=== PATIENT | female | born 1940 | race Caucasian/White ===

== ENCOUNTER 2017-08-01 11:54 | Outpatient (CLI) | payer MEDICARE, OTHER ==
--- NOTE | 2017-08-01 16:24 | XRAY Report ---
DATE OF SERVICE: 08/01/2017 TWO VIEW CHEST: 08/01/2017 CLINICAL INDICATION: Wheezing, cough. COMPARISON: 06/08/2010. FINDINGS: Frontal and lateral views of the chest demonstrate a normal cardiac silhouette. The lungs are clear. No effusion or pneumothorax is present. IMPRESSION: NORMAL CHEST, UNCHANGED. TD: 08/01/2017 17:23
== END 2017-08-01 11:55 | disposition home or self-care (01) ==
LOC: DI 11:54
PROVIDERS: ATTEND Internal Medicine
DX: R06.2 Wheezing (principal); R05 Cough
CPT/HCPCS: 71046

== ENCOUNTER 2017-09-26 14:02 | Outpatient (CLI) | payer MEDICARE, OTHER | END 2017-09-26 14:03 | disposition home or self-care (01) | LOC: SC 14:02 | PROVIDERS: ATTEND Internal Medicine Pulmonary Disease | DX: G47.33 Obstructive sleep apnea (adult) (pediatric) (principal) | CPT/HCPCS: 99203; G0463; 99212 ==

== ENCOUNTER 2019-06-05 13:13 | Outpatient (CLI) | payer MEDICARE, OTHER ==
--- NOTE | 2019-06-05 13:59 | SLEEP CARE CONSULTATION ---
Information from patient questionnaire entered by Candis Trevino. I have reviewed and concur with the information entered by Candis Trevino. This document represents the service I personally performed and the decisions made by me, Rhina Tran MD, [facility]. History of Present Illness Previous diagnosis: Mild, Obstructive Sleep Apnea-Hypopnea Syndrome AHI: 14.8 Reason for follow up: annual Prior sleep studies: Yes HPI additional information: HPI: Ms. Chaudhry returned today for annual follow up of nasal CPAP therapy. She was diagnosed to have mild obstructive sleep apnea-hypopnea syndrome here in 2008. The patient used CPAP regularly until about 2 years ago when it broke. She sleeps alone and does not know if she still snores or not. She complains of sleep onset insomnia but does not wake up frequently at night. Her sleep schedule is from 2 am to 10 am. She would like to be retested to see if she still has the sleep-disordered breathing. Subjective Initial [place] Sleepiness Scale score: 2 Current [place] Sleepiness Scale score: 1 Allergies and Home Medications Drug allergies reviewed: Yes Home medication list reviewed: Yes Review of Systems Review of systems same as previous: Yes Physical Exam Weight: 205 lb Weight change since last visit: +5 Impression and Plan IMPRESSION: 1. Obstructive Sleep Apnea-Hypopnea Syndrome, mild, presently untreated because her CPAP machine broke 2 years ago. She gained 5 lbs since the diagnosis 10 years ago. I will repeat the in-laboratory polysomnography. If she does have significant sleep disordered breathing, I will order her a new machine. PLAN: 1. Repeat in-laboratory polysomnography. 3. Return in one month for follow up to go over the sleep study results. I spent 100% of this 20 minute visit face to face with the patient with greater than 50% of this was spent time counseling the patient and coordination of care.
== END 2019-06-05 13:14 | disposition home or self-care (01) ==
LOC: SC 13:13
PROVIDERS: ATTEND Internal Medicine Pulmonary Disease
DX: G47.33 Obstructive sleep apnea (adult) (pediatric) (principal)
CPT/HCPCS: 99213; G0463; 99212

== ENCOUNTER 2019-09-26 19:04 | Emergency (ER) | payer MEDICARE, OTHER ==
--- NOTE | 2019-09-26 20:27 | XRAY Report ---
Reason: pain Procedure Date: 09/26/2019 Accession Number: [id number] / [id number] Procedure: XR - Hip w/Pelvis 2-3V LT CPT Code: Final Report FULL RESULT: EXAM: LEFT HIP RADIOGRAPHY EXAM DATE: 09/26/2019 08:21 PM. CLINICAL HISTORY: Increasing left hip pain for 4 days COMPARISON: None. TECHNIQUE: 2 views. FINDINGS: Bones: Normal. No fractures or bone lesion. Joints: Mild bilateral hip degenerative joint disease. Soft Tissues: Surgical clips in the pelvis. Phleboliths in the pelvis. IMPRESSION: 1. Mild bilateral hip degenerative joint disease. 2. No evidence of left hip fracture. RADIA
[2019-09-26] MEDS ORDERED: fentaNYL 100 MCG/2 ML VIAL IVP STA ×3 (21:17→23:16)
[2019-09-26] MEDS ORDERED: LIDOCAINE 1% 2 ML VIAL TD STA (22:16)
[2019-09-26] MEDS ORDERED: TRIAMCINOLONE 40 MG/ML VIAL IM STA (22:16)
--- NOTE | 2019-09-26 22:23 | ED Physician Documentation ---
History of Present Illness - Stated complaint Stated Complaint: L HIP PX - Chief complaint Chief Complaint: Ext Problem - History obtained from History obtained from: Patient - History of Present Illness Timing: Prior to arrival (Pt presents with left hip pain that started 3 days ago but worsened yesterday after she did her weekly shopping trip and was walking around more than her normal. She did not fall or have an acute injury. She has not had any swelling or redness in the area. She denies shortness of breath or lower leg pain/calf pain/fullness. She has no dysuria, constipation, or abd pain. She states a prior hx/o lower back pain, previously requiring multiple injections and eventually improved with a lumbar laminectomy.) Review of Systems Constitutional: denies: Fever, Chills Cardiac: denies: Chest pain / pressure, Palpitations, Pedal edema, Calf pain Respiratory: denies: Dyspnea, Cough GI: denies: Abdominal Pain, Nausea, Vomiting, Constipation, Diarrhea : denies: Dysuria, Frequency, Hesitancy, Unable to Void, Incontinent Skin: denies: Rash, Lesions, Abrasion (s) Musculoskeletal: reports: Extremity pain, Joint pain, Pain with weight bearing. 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 - Present Medications Home Medications: Ambulatory Orders Medication Instructions Recorded Confirmed Pravastatin [Pravachol] 40 mg PO DAILY 12/13/15 09/26/19 diltiaZEM CD [Cardizem Cd] 240 mg PO DAILY 12/13/15 09/26/19 metFORMIN [Glucophage] 6,500 mg PO DAILY 12/13/15 09/26/19 LORazepam [Lorazepam] 2 mg PO QPM 09/26/19 09/26/19 Lidocaine Patch 5% [Lidoderm Patch] 1 patch TOP DAILY PRN #10 patch 09/26/19 predniSONE [Prednisone] 40 mg PO DAILY #10 tablet 09/26/19 - Allergies Allergies/Adverse Reactions: Allergies Allergy/AdvReac Type Severity Reaction Status Date / Time acetaminophen [From Tylenol] Allergy Itching Verified 12/13/15 15:35 erythromycin base Allergy Anaphylaxis Verified 12/13/15 15:35 oxycodone Allergy Itching Verified 12/13/15 15:35 ibuprofen [From Motrin] AdvReac Mild Itching Verified 12/14/15 06:34 NSAIDS (Non-Steroidal AdvReac Itching Verified 09/26/19 19:16 Anti-Inflamma - Social History Does the pt smoke?: No Smoking Status: Never smoker Does the pt drink ETOH?: No Does the pt have substance abuse?: No - Immunizations Immunizations are current?: Yes - POLST Patient has POLST: No PD ED PE NORMAL - Vitals Vital signs reviewed: Yes - General General: Alert and oriented X 3, No acute distress, Well developed/nourished - Neck Neck: Supple, no meningeal sign, No adenopathy - Cardiac Cardiac: RRR, No murmur - Respiratory Respiratory: No respiratory distress, Clear bilaterally - Abdomen Abdomen: Normal bowel sounds, Soft, Non tender, Non distended - Back Back: No CVA TTP, No spinal TTP - Derm Derm: Normal color, Warm and dry, No rash - Extremities Extremities: No deformity, No tenderness to palpate, No edema, No calf tenderness / cord, Other (no specific pain with palpation of the left hip joint. she has mild tenderness of the left lateral thigh. there is no redness, swelling, or palpable fluid collection. The patient has normal rotation of the hip, normal flex/ext, but has pain when she tries to stand and walk. ) Results - Vitals Vitals: Vital Signs - 24 hr 09/26/19 09/27/19 19:13 00:02 Temperature 37 C 36.6 C Heart Rate 109 H 92 Respiratory 17 16 Rate Blood Pressure 150/77 H 151/94 H O2 Saturation 95 95 Oxygen O2 Source Room air PD MEDICAL DECISION MAKING - ED course Complexity details: reviewed results, re-evaluated patient, considered differential, d/w patient, d/w family ED course: Pt presented with non-traumatic left hip pain after a period of increased activity. Pain improved throughout the ER stay s/p a total of 100mcg of fentanyl and she is now ambulatory. She has no exam findings or hx concerning for infectious etiology and there is no swelling or bursitis. She does have degenerative changes on xray and pain may be 2/2 to exacerbation of arthritis. I discussed options for pain control as pt has numerous allergies. She would like to try a course of steroids as this worked for her back pain in the past, and we will try a lidocaine patch. I cautioned on side effects of steroids and pt und erstands. I recommended pt follow up with her pcp/ortho in the next week if pain persists, may benefit from joint injection. Pt advised to return if she develops worsening pain, fever/chills, left swelling or redness, or otherwise worsening symptoms. Departure - Departure Disposition: 01 Home, Self Care Clinical Impression: Pain in extremity Qualifiers: Extremity pain location: thigh Laterality: left Qualified Code(s): M79.652 - Pain in left thigh Condition: Good Instructions: ED Acute Pain [facility]O Prescriptions: Lidocaine Patch 5% [Lidoderm Patch] 1 patch TOP DAILY PRN #10 patch PRN Reason: pain predniSONE [Prednisone] 40 mg PO DAILY #10 tablet Comments: You presented with left thigh pain. Your xray was normal and there were no signs of swelling, redness, fluid collection, calf pain. You had some relief with fentanyl and after discussion we decided to try a burst of steroids as you have used this in the past with your back pain. If you developed redness, swelling, calf pain, fever, chills, or otherwise worsening symptoms, I recommend you return to the ER or follow up with your primary doctor. Due to your allergies, I am not able to give you any oral medications for home, but we will try a lidocaine patch. Discharge Date/Time: 09/27/19 00:13
[2019-09-26] MEDS ORDERED: LIDOCAINE PATCH 5% TOP STA (22:38)
[2019-09-26] MEDS ORDERED: predniSONE 20 MG TABLET PO STA (23:16)
[2019-09-27 00:04] VITALS: BP 151/94
== END 2019-09-27 00:13 | disposition home or self-care (01) ==
LOC: ED 19:04
DX: M79.652 Pain in left thigh (principal); I10 Essential (primary) hypertension; E11.9 Type 2 diabetes mellitus without complications; Z79.84 Long term (current) use of oral hypoglycemic drugs
CPT/HCPCS: 73502; 96374; 96376; 99283; 99284; A9270; J7512

== ENCOUNTER 2021-03-31 07:00 | Outpatient (CLI) | payer MEDICARE, OTHER ==
--- NOTE | 2021-03-31 17:15 | XRAY Report ---
PROCEDURE: Shoulder 3 View LT INDICATIONS: L SHOULDER PX TECHNIQUE: 3 views of the shoulder were acquired. COMPARISON: None. FINDINGS: Bones: No fractures or dislocations. Mild to moderate acromioclavicular joint and glenohumeral join t osteoarthritic changes are seen. No suspicious bony lesions. Visualized ribs appear intact. Soft tissues: No suspicious soft tissue calcifications. IMPRESSION: Mild to moderate left shoulder joint osteoarthritis. No fracture or dislocation. No susp icious bony lesion. Reviewed by: Edy Guerrero MD on 03/31/2021 5:13 PM PDT Approved by: Edy Guerrero MD on 03/31/2021 5:13 PM PDT Station ID: [id number]
== END 2021-03-31 23:59 | disposition home or self-care (01) ==
LOC: DI.N 07:00
PROVIDERS: ATTEND Family Medicine
DX: M19.012 Primary osteoarthritis, left shoulder (principal); R42 Dizziness and giddiness; R29.6 Repeated falls; N39.0 Urinary tract infection, site not specified
CPT/HCPCS: 36415; 80053; 84443; 85025; 87086; 87181

== ENCOUNTER 2021-03-31 08:00 | Outpatient (CLI) | payer MEDICARE, OTHER ==
[2021-03-31 20:40] LABS: BASOPHILS # (AUTO) 0.1 10^3/uL (0.0-0.1); BASOPHILS % (AUTO) 0.3 %; EOSINOPHILS # (AUTO) 0.1 10^3/uL (0.0-0.7); EOSINOPHILS % (AUTO) 0.3 %; HCT - HEMATOCRIT 41.7 % (37.0-47.0); HGB - HEMOGLOBIN 14.2 g/dL (12.0-16.0); LYMPHOCYTES # (AUTO) 1.3 10^3/uL (1.5-3.5); LYMPHOCYTES % (AUTO) 8.3 %; MEAN CORPUSCULAR HEMOGLOBIN 32.6 pg (27.0-31.0); MEAN CORPUSCULAR HGB CONC 34.1 g/dL (32.0-36.0); MEAN CORPUSCULAR VOLUME 95.9 fL (81.0-99.0); MEAN PLATELET VOLUME 11.4 fL (7.9-10.8); MONOCYTES # (AUTO) 1.7 10^3/uL (0.0-1.0); NEUTROPHILS # (AUTO) 12.3 10^3/uL (1.5-6.6); NEUTROPHILS % (AUTO) 79.6 %; PLT - PLATELET COUNT 349 10^3/uL (130-450); RED BLOOD COUNT 4.35 10^6/uL (4.20-5.40); RED CELL DISTRIBUTION WIDTH 11.9 % (12.0-15.0); WHITE BLOOD COUNT 15.5 x10^3/uL (4.8-10.8)
[2021-03-31 21:05] LABS: ALBUMIN 3.4 g/dL (3.2-5.5); ALBUMIN/GLOBULIN RATIO 0.8 (1.0-2.2); BILIRUBIN,TOTAL 2.6 mg/dL (0.2-1.0); CALCIUM 10.3 mg/dL (8.5-10.3); CREATININE 0.6 mg/dL (0.4-1.0); POTASSIUM 3.4 mmol/L (3.5-5.0); TOTAL PROTEIN 7.9 g/dL (6.7-8.2)
[2021-03-31 21:17] LABS: THYROID STIMULATING HORMONE 1.68 uIU/mL (0.34-5.60)
[2021-03-31 21:57] LABS: PLATELET ESTIMATE, MANUAL NORMAL (130-450,000) (NORMAL); PLATELET MORPHOLOGY NORMAL APPEARANCE (NORMAL); RBC MORPHOLOGY (MULTIPLE) NORMAL APPEARANCE (NORMAL)
== END 2021-03-31 23:59 | disposition home or self-care (01) ==
LOC: LAB.N 08:00
PROVIDERS: ATTEND Family Medicine
DX: R42 Dizziness and giddiness (principal); R29.6 Repeated falls; N39.0 Urinary tract infection, site not specified
CPT/HCPCS: 36415; 80053; 84443; 85025; 87086; 87181

== ENCOUNTER 2021-04-03 12:51 | Emergency (ER) | payer MEDICARE, OTHER ==
--- NOTE | 2021-04-03 13:32 | XRAY Report ---
PROCEDURE: Chest 1 View X-Ray INDICATIONS: chest pain TECHNIQUE: One view of the chest was acquired. COMPARISON: 08/01/2017. FINDINGS: Surgical changes and devices: None. Lungs and pleura: No pleural effusions or pneumothorax. Lungs are clear. Mediastinum: Mediastinal contours appear normal. Heart size is normal. Bones and chest wall: No suspicious bony lesions. Overlying soft tissues appear unremarkable. IMPRESSION: 1. No acute cardiopulmonary disease. Reviewed by: Severino Bauer MD on 04/03/2021 1:30 PM PDT Approved by: Severino Bauer MD on 04/03/2021 1:30 PM PDT Station ID: [id number]
[2021-04-03 13:43] LABS: BASOPHILS % (AUTO) 0.3 %; EOSINOPHILS % (AUTO) 0.3 %; HCT - HEMATOCRIT 39.5 % (37.0-47.0); HGB - HEMOGLOBIN 13.7 g/dL (12.0-16.0); LYMPHOCYTES % (AUTO) 8.2 %; MEAN CORPUSCULAR HEMOGLOBIN 32.5 pg (27.0-31.0); MEAN CORPUSCULAR HGB CONC 34.7 g/dL (32.0-36.0); MEAN CORPUSCULAR VOLUME 93.6 fL (81.0-99.0); MEAN PLATELET VOLUME 10.7 fL (7.9-10.8); MONOCYTES # (AUTO) 1.1 10^3/uL (0.0-1.0); MONOCYTES % (AUTO) 9.2 %; NEUTROPHILS # (AUTO) 9.5 10^3/uL (1.5-6.6); PLT - PLATELET COUNT 344 10^3/uL (130-450); RED BLOOD COUNT 4.22 10^6/uL (4.20-5.40); RED CELL DISTRIBUTION WIDTH 11.8 % (12.0-15.0); WHITE BLOOD COUNT 11.7 x10^3/uL (4.8-10.8)
[2021-04-03 14:05] LABS: ALBUMIN 3.1 g/dL (3.2-5.5); ALBUMIN/GLOBULIN RATIO 0.8 (1.0-2.2); BILIRUBIN,TOTAL 2.2 mg/dL (0.2-1.0); CALCIUM 9.6 mg/dL (8.5-10.3); CREATININE 0.6 mg/dL (0.4-1.0); POTASSIUM 3.3 mmol/L (3.5-5.0); TOTAL PROTEIN 7.1 g/dL (6.7-8.2)
[2021-04-03] MEDS ORDERED: SODIUM CHLORIDE 0.9% 1,000 ML IV STA (14:47)
--- NOTE | 2021-04-03 14:49 | ED Physician Documentation ---
History of Present Illness - Stated complaint Stated Complaint: FEMALE - Chief complaint Chief Complaint: General - History obtained from History obtained from: Patient - History of Present Illness Timing: How many weeks ago (2) - Additonal information Additional information: 80-year-old diabetic female has developed falls. She has had 4 falls in the past 2 weeks. She does not recall all of the details to the falls. She has not injured herself except when she fell today injuring her left hand and that injury is mild. Today when she fell she was not able to get up off the floor and when the patient's daughter in law discovered her on the floor she has brought her to the emergency department for evaluation. The patient apparently has been seen at the walk-in clinic 3 days ago and diagnosed with urinary tract infection and put on antibiotics. She had blood work done at that time. She has not resulted that blood work. She denies any nausea or vomiting she denies any urinary frequency or urgency and she thinks she has been adequately hydrating. She does not check her blood sugars. She has not had a warning before these falls. She denies any lightheaded or dizziness prior to the falls. She has stopped drinking alcohol 5 weeks ago. Her family indicates that she was prescribed macrobid #14 and she took all but 2 in the last 2 days. Review of Systems Constitutional: denies: Fever Eyes: denies: Decreased vision Ears: denies: Ear pain Nose: denies: Rhinorrhea / runny nose, Congestion Throat: denies: Sore throat Cardiac: denies: Chest pain / pressure, Palpitations Respiratory: denies: Dyspnea, Cough GI: denies: Abdominal Pain, Nausea, Vomiting, Constipation, Diarrhea : denies: Dysuria, Frequency Skin: denies: Rash Musculoskeletal: denies: Neck pain, Back pain, Extremity pain Neurologic: reports: Syncope. 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 - Present Medications Home Medications: Ambulatory Orders Medication Instructions Recorded Confirmed Pravastatin [Pravachol] 40 mg PO DAILY 12/13/15 09/26/19 diltiaZEM CD [Cardizem Cd] 240 mg PO DAILY 12/13/15 09/26/19 metFORMIN [Glucophage] 6,500 mg PO DAILY 12/13/15 09/26/19 LORazepam [Lorazepam] 2 mg PO QPM 09/26/19 09/26/19 Lidocaine Patch 5% [Lidoderm Patch] 1 patch TOP DAILY PRN #10 patch 09/26/19 predniSONE [Prednisone] 40 mg PO DAILY #10 tablet 09/26/19 - Allergies Allergies/Adverse Reactions: Allergies Allergy/AdvReac Type Severity Reaction Status Date / Time acetaminophen [From Tylenol] Allergy Itching Verified 04/03/21 12:57 erythromycin base Allergy Anaphylaxis Verified 04/03/21 12:57 oxycodone Allergy Itching Verified 04/03/21 12:57 ibuprofen [From Motrin] AdvReac Mild Itching Verified 04/03/21 12:57 NSAIDS (Non-Steroidal AdvReac Itching Verified 04/03/21 12:57 Anti-Inflamma - Social History Does the pt smoke?: No Smoking Status: Never smoker Does the pt drink ETOH?: No Does the pt have substance abuse?: No - Immunizations Immunizations are current?: Yes - POLST Patient has POLST: No PD ED PE NORMAL - Vitals Vital signs reviewed: Yes (normal ) - General General: Alert and oriented X 3, No acute distress, Well developed/nourished - HEENT HEENT: Atraumatic, PERRL, EOMI - Neck Neck: Supple, no meningeal sign, No bony TTP - Cardiac Cardiac: RRR, No murmur - Respiratory Respiratory: No respiratory distress, Clear bilaterally - Abdomen Abdomen: Normal bowel sounds, Soft, Non tender, Non distended, No organomegaly - Back Back: No CVA TTP, No spinal TTP - Derm Derm: Normal color, Warm and dry, No rash - Extremities Extremities: No deformity, No edema - Neuro Neuro: Alert and oriented X 3, flow match sofa cutter 2-12 intact, No motor deficit, No sensory deficit, Normal speech Eye Opening: Spontaneous Motor: Obeys Commands Verbal: Oriented GCS Score: 15 - Psych Psych: Normal mood, Normal affect Results - Vitals Vitals: Vital Signs - 24 hr 04/03/21 04/03/21 04/03/21 12:57 15:01 17:01 Temperature 36.5 C 36.6 C 36.5 C Heart Rate 100 84 88 Respiratory 16 16 16 Rate Blood Pressure 113/79 161/83 H 150/77 H O2 Saturation 94 95 97 04/03/21 19:21 Temperature Heart Rate 88 Respiratory 18 Rate Blood Pressure 157/82 H O2 Saturation 94 Oxygen O2 Source Room air - Labs Labs: Laboratory Tests 04/03/21 04/03/21 04/03/21 13:29 13:29 13:29 WBC 11.7 H RBC 4.22 Hgb 13.7 Hct 39.5 MCV 93.6 MCH 32.5 H MCHC 34.7 RDW 11.8 L Plt Count 344 MPV 10.7 Neut # (Auto) 9.5 H Lymph # (Auto) 1.0 L Dickson # (Auto) 1.1 H Eos # (Auto) 0.0 Baso # (Auto) 0.0 Absolute Nucleated RBC 0.00 Nucleated RBC % 0.0 Sodium 136 Potassium 3.3 L Chloride 94 L Carbon Dioxide 28 Anion Gap 14.0 H BUN 14 Creatinine 0.6 Estimated GFR (MDRD) 97 Glucose 258 H POC Whole Bld Glucose Lactic Acid 1.2 Calcium 9.6 Total Bilirubin 2.2 H AST 313 H ALT 537 H Alkaline Phosphatase 405 H Total Protein 7.1 Albumin 3.1 L Globulin 4.0 Albumin/Globulin Ratio 0.8 L Lipase 206 H Urine Color Urine Clarity Urine pH Ur Specific [place] Urine Protein Urine Glucose (UA) Urine Ketones Urine Occult Blood Urine Nitrite Urine Bilirubin Urine Urobilinogen Ur Leukocyte Esterase Urine RBC Urine WBC Ur Squamous Epith Cells Urine Bacteria Ur Microscopic Review Urine Culture Comments 04/03/21 04/03/21 15:55 17:35 WBC RBC Hgb Hct MCV MCH MCHC RDW Plt Count MPV Neut # (Auto) Lymph # (Auto) Dickson # (Auto) Eos # (Auto) Baso # (Auto) Absolute Nucleated RBC Nucleated RBC % Sodium Potassium Chloride Carbon Dioxide Anion Gap BUN Creatinine Estimated GFR (MDRD) Glucose POC Whole Bld Glucose 308 H Lactic Acid Calcium Total Bilirubin AST ALT Alkaline Phosphatase Total Protein Albumin Globulin Albumin/Globulin Ratio Lipase Urine Color BROWN Urine Clarity CLEAR Urine pH Ur Specific [place] Urine Protein Urine Glucose (UA) Urine Ketones Urine Occult Blood Urine Nitrite Urine Bilirubin NEGATIVE Urine Urobilinogen Ur Leukocyte Esterase NEGATIVE Urine RBC 6-10 H Urine WBC 0-3 Ur Squamous Epith Cells MOD Squamous H Urine Bacteria Rare Ur Microscopic Review INDICATED Urine Culture Comments NOT INDICATED - Rads (name of study) chest Radiology: Prelim report reviewed (Impression: 1. No acute cardiopulmonary disease.), EMP read indepedently, See rad report CT ab/pel w Radiology: Prelim report reviewed (Impression: 1. Cholecystitis. 2. Normal appendix. 3. No biliary ductal dilation.), EMP read indepedently, See rad report u/s abd lmt Radiology: Prelim report reviewed (Impression: 1. Sludge material and small stones are seen in the gallbladder lumen with borderline gallbladder wall thickening. No sonographic Ramos sign. Findings may indicate chronic cholecystitis. No intrahepatic ductal dilation. Common bile duct size is in the upper limits of normal. ), Final report received ( Possible subcentimeters cyst in the pancreatic tail. This could represent IPMN. Consider follow-up with dedicated MRI of the abdomen without and with contrast. Hepatic steatosis. No discrete hepatic lesion.), EMP read indepedently, See rad report Procedures - IVC sono (time) 1445 Bedside IVC sono: IVC measures (cm) (0.94), IVC collapsed c insp (cm) (complete ), Dehydration (est 2 liter deficit) PD MEDICAL DECISION MAKING - ED course Complexity details: reviewed old records, reviewed results, re-evaluated patient, considered differential, d/w patient ED course: 80-year-old female with repeated falls has no warning for her falls denies any palpitations or shortness of breath associated with these and she has not injured herself. She does lose consciousness with the falls. Today in the emergency department she is found to be dehydrated by interrogation the inferior vena cava and she is administered saline. She has a biochemical profile consistent with obstruction of the biliary tree. She does not have pain. I have asked patient be put on the monitor and we are obtaining an ultrasound of the abdomen.Ultrasound showed what appeared to be cholecystitis without a Ramos sign. We were concerned about the possibility of obstruction with a biochemical profile and obtained CT of the abdomen pelvis as well. This study was concerning for cholecystitis and without evidence of intrahepatic biliary ductal dilation. The appearance of choleycstitis with negative ramos's concerning for chronic cholecystitis. We consulted the surgeon Dr. Rausch who evaluated the patient and recommended that she have her gallbladder taken out. The patient has been resistant to this and has asked to be discharged from the emergency department to seek surgery at [facility]. She states that she has had surgery done at [facility] previously and she likes that hospital. The patient has chronic findings that are not part of her chief complaint unless it is simply related to decreased oral intake. She appears stable for discharge with some urgency to the need for cholecystectomy. I did speak with the patient's family both the [id number]-pyk Ragini and the son Mathew and they will help the patient work on getting a surgical consultation at [facility]. Departure - Departure Disposition: 01 Home, Self Care Clinical Impression: Chronic calculous cholecystitis, Dehydration Condition: Stable Instructions: ED Gallbladder Infec Poss, ED Dehydration Follow-Up: Sheng Espana MD [Primary Care Provider] - Beltran Horton MD [Physician No Access] - Comments: Richa, today in the emergency department we found that you are dehydrated and this is likely contributing to your falls. In addition we have discovered that you have a problem with your gallbladder and this looks like it should be taken care of urgently. Call the surgeon to make an appointment to be seen as soon as possible. Ask them to review records and images. If you are unable to make contact or be seen within the next 2-5 days return here or follow up in the emergency department at [place]. If you worsen or develop new symptoms follow up immediately.
[2021-04-03 16:10] LABS: LEUKOCYTE ESTERASE, URINE NEGATIVE (NEGATIVE)
[2021-04-03 16:12] LABS: BILIRUBIN,URINE NEGATIVE (NEGATIVE); CLARITY,URINE CLEAR (CLEAR); ICTOTEST,URINE NEGATIVE
[2021-04-03] MEDS ORDERED: IOPAMIDOL-300 100 ML VIAL ONE (16:18)
--- NOTE | 2021-04-03 16:27 | Ultrasound Report ---
PROCEDURE: Abdomen Limited INDICATIONS: painless billiary obstruction TECHNIQUE: Real-time focused scanning was performed of the abdomen, with image documentation. COMPARISON: Ultrasound of abdomen dated 07/23/2010 FINDINGS: Liver is normal in size with coarsely echogenic liver parenchymal echotexture, no discrete hepatic le tu is seen. Sludge material and small stones are seen in dependent portion of gallbladder lumen. Gallbladder wall thickening is seen measures 4.2 mm in thickness. No pericholecystic fluid. No sonographic Ramos's s ign. There is no intrahepatic biliary ductal dilatation. Common bile duct measures 7.2 mm in diameter and is at the upper limits of normal for patient's age. Visualized portion of pancreas shows possible cyst measures 7 x 4 x 7 mm in size at pancreatic body/t ail junction. Rest of the pancreas is unremarkable. Right kidney measures 12.7 cm in length. There is no hydronephrosis or solid-appearing renal lesion. 4 mm nonobstructing stone is seen in mid pole of right kidney. IMPRESSION: 1. Sludge material and small stones are seen in gallbladder lumen with borderline gallbladder wall th ickening. No sonographic Ramos's sign. Finding may indicate chronic cholecystitis. 2. No intrahepatic ductal dilatation. Common bile duct size is in the upper limits of normal. 3. Possible subcentimeter cyst in pancreatic tail. This could represent IPMN. Consider follow-up with dedicated MRI of abdomen without and with contrast. 4. Hepatic steatosis. No discrete hepatic lesion. Reviewed by: Edy Guerrero MD on 04/03/2021 4:26 PM PDT Approved by: Edy Guerrero MD on 04/03/2021 4:26 PM PDT Station ID: [id number]
[2021-04-03 16:31] LABS: BACTERIA,URINE Rare /HPF (None Seen); SQUAMOUS EPITHELIAL CELL,UR MOD Squamous (<= Few); WBC,URINE 0-3 /HPF (0-5)
[2021-04-03] MEDS ORDERED: IOPAMIDOL-300 100 ML VIAL IVP ONE (17:28)
--- NOTE | 2021-04-03 17:44 | CT Report ---
PROCEDURE: Abdomen/Pelvis W INDICATIONS: painless jaundice CONTRAST: IV CONTRAST: Isovue 300 ml: 100 PO CONTRAST: *NO PO CONTRAST TECHNIQUE: After the administration of IV contrast, 5 mm thick sections acquired from the diaphragms to the symp hysis. 5 mm thick coronal and sagittal reformats were acquired. For radiation dose reduction, the f ollowing was used: automated exposure control, adjustment of mA and/or kV according to patient size. COMPARISON: Ultrasound dated 04/03/2021 FINDINGS: Image quality: Excellent. ABDOMEN: Lung bases: Lung bases are clear. Heart size is normal. Solid organs: Liver and spleen are normal in size and enhancement. Gallbladder is mildly distended and demonstrates moderate wall thickening, as well as mild surrounding fat straining. Multiple calcul i within the gallbladder lumen are present. Biliary system is non dilated. Pancreas enhances normal ly. No adrenal nodules. Kidneys demonstrate normal size and enhancement, without hydronephrosis. Peritoneum and bowel: Bowel loops demonstrate normal wall thickness and caliber. No free fluid or a ir. Normal appendix. Nodes and vessels: No retroperitoneal or mesenteric adenopathy by size criteria. Aorta and inferior vena cava are normal in size. Miscellaneous: No ventral hernias. PELVIS: Genitourinary: Bladder wall thickness is normal. Miscellaneous: No inguinal hernias or adenopathy. Bones: No suspicious bony lesions. Mild chronic appearing L1 compression fracture is present. No ac rose vertebral body compression fractures. IMPRESSION: 1. Cholecystitis. 2. Normal appendix. 3. No biliary ductal dilatation. Reviewed by: Jazlyn Diego MD on 04/03/2021 5:43 PM PDT Approved by: Jazlyn Diego MD on 04/03/2021 5:43 PM PDT Station ID: [id number]
--- NOTE | 2021-04-03 19:06 | CONSULTATION NOTE ---
Surgery Consult - Consult Date Consult Date: 04/03/21 Requesting Provider: Valentine - Chief Complaint Chief Complaint: Falls at home - Home Meds/Allergies Home Medications: Patient History Medication Instructions Recorded Confirmed Pravastatin [Pravachol] 40 mg PO DAILY 12/13/15 09/26/19 diltiaZEM CD [Cardizem Cd] 240 mg PO DAILY 12/13/15 09/26/19 metFORMIN [Glucophage] 6,500 mg PO DAILY 12/13/15 09/26/19 LORazepam [Lorazepam] 2 mg PO QPM 09/26/19 09/26/19 Allergies/Adverse Reactions: Allergies Allergy/AdvReac Type Severity Reaction Status Date / Time acetaminophen [From Tylenol] Allergy Itching Verified 04/03/21 12:57 erythromycin base Allergy Anaphylaxis Verified 04/03/21 12:57 oxycodone Allergy Itching Verified 04/03/21 12:57 ibuprofen [From Motrin] AdvReac Mild Itching Verified 04/03/21 12:57 NSAIDS (Non-Steroidal AdvReac Itching Verified 04/03/21 12:57 Anti-Inflamma - Vital Signs Vital Signs: Last Vital Signs Temp 36.5 C 04/03/21 17:01 Pulse 88 04/03/21 17:01 Resp 16 04/03/21 17:01 BP 150/77 H 04/03/21 17:01 Pulse Ox 97 04/03/21 17:01 - Lab Results Result Diagrams: 04/03/21 13:29 04/03/21 13:29 - Consultation Note Consultation Note: 80 yo diabetic female brought in for falls at home. Incidentally found to have elevated LFTs. No complaint of abdominal pain. No N/V.Given IV hydration in ED and abdominal US and Ct done. Meds: Patient History Medication Instructions Recorded Confirmed Pravastatin [Pravachol] 40 mg PO DAILY 12/13/15 09/26/19 diltiaZEM CD [Cardizem Cd] 240 mg PO DAILY 12/13/15 09/26/19 metFORMIN [Glucophage] 6,500 mg PO DAILY 12/13/15 09/26/19 LORazepam [Lorazepam] 2 mg PO QPM 09/26/19 09/26/19 No previous abdominal surgery. Exam: Last Vital Signs Temp 36.5 C 04/03/21 17:01 Pulse 88 04/03/21 17:01 Resp 16 04/03/21 17:01 BP 150/77 H 04/03/21 17:01 Pulse Ox 97 04/03/21 17:01 Alert, cooperative. HEENT: Anicteric Chest: clear CV RR s m Abdomen: minimal RUQ tenderness on deep palpation. Negative Ramos's sign. Ext: no edema. Lab Results x24hrs 04/03/21 04/03/21 04/03/21 17:35 15:55 13:29 WBC RBC Hgb Hct MCV MCH MCHC RDW Plt Count MPV Neut # (Auto) Lymph # (Auto) [place] # (Auto) Eos # (Auto) Baso # (Auto) Absolute Nucleated RBC Nucleated RBC % Sodium Potassium Chloride Carbon Dioxide Anion Gap BUN Creatinine Estimated GFR (MDRD) Glucose POC Whole Bld Glucose 308 mg/dL H mg/dL (70 - 100) Lactic Acid 1.2 mmol/L mmol/L (0.5-2.2) Calcium Total Bilirubin AST ALT Alkaline Phosphatase Total Protein Albumin Globulin Albumin/Globulin Ratio Lipase Urine Color BROWN Urine Clarity CLEAR (CLEAR) Urine pH PH PH (5.0-7.5) Ur Specific [place] (1.002-1.030) Urine Protein mg/dL mg/dL (NEGATIVE) Urine Glucose (UA) mg/dL mg/dL (NEGATIVE) Urine Ketones mg/dL mg/dL (NEGATIVE) Urine Occult Blood (NEGATIVE) Urine Nitrite (NEGATIVE) Urine Bilirubin NEGATIVE (NEGATIVE) Urine Urobilinogen E.U./dL E.U./dL (NORMAL) Ur Leukocyte Esterase NEGATIVE (NEGATIVE) Urine RBC 6-10 /HPF H /HPF (0-5) Urine WBC 0-3 /HPF /HPF (0-5) Ur Squamous Epith Cells MOD Squamous H (<= Few) Urine Bacteria Rare /HPF /HPF (None Seen) Ur Microscopic Review INDICATED Urine Culture Comments NOT INDICATED 04/03/21 04/03/21 13:29 13:29 WBC 11.7 x10^3/uL H x10^3/uL (4.8-10.8) RBC 4.22 10^6/uL 10^6/uL (4.20-5.40) Hgb 13.7 g/dL g/dL (12.0-16.0) Hct 39.5 % % (37.0-47.0) MCV 93.6 fL fL (81.0-99.0) MCH 32.5 pg H pg (27.0-31.0) MCHC 34.7 g/dL g/dL (32.0-36.0) RDW 11.8 % L % (12.0-15.0) Plt Count 344 10^3/uL 10^3/uL (130-450) MPV 10.7 fL fL (7.9-10.8) Neut # (Auto) 9.5 10^3/uL H 10^3/uL (1.5-6.6) Lymph # (Auto) 1.0 10^3/uL L 10^3/uL (1.5-3.5) [place] # (Auto) 1.1 10^3/uL H 10^3/uL (0.0-1.0) Eos # (Auto) 0.0 10^3/uL 10^3/uL (0.0-0.7) Baso # (Auto) 0.0 10^3/uL 10^3/uL (0.0-0.1) Absolute Nucleated RBC 0.00 x10^3/uL x10^3/uL Nucleated RBC % 0.0 /100WBC /100WBC Sodium 136 mmol/L mmol/L (135-145) Potassium 3.3 mmol/L L mmol/L (3.5-5.0) Chloride 94 mmol/L L mmol/L (101-111) Carbon Dioxide 28 mmol/L mmol/L (21-32) Anion Gap 14.0 H (6-13) BUN 14 mg/dL mg/dL (6-20) Creatinine 0.6 mg/dL mg/dL (0.4-1.0) Estimated GFR (MDRD) 97 (>89) Glucose 258 mg/dL H mg/dL (70-100) POC Whole Bld Glucose Lactic Acid Calcium 9.6 mg/dL mg/dL (8.5-10.3) Total Bilirubin 2.2 mg/dL H mg/dL (0.2-1.0) AST 313 IU/L H IU/L (10-42) ALT 537 IU/L H IU/L (10-60) Alkaline Phosphatase 405 IU/L H IU/L (42-121) Total Protein 7.1 g/dL g/dL (6.7-8.2) Albumin 3.1 g/dL L g/dL (3.2-5.5) Globulin 4.0 g/dL g/dL (2.1-4.2) Albumin/Globulin Ratio 0.8 L (1.0-2.2) Lipase 206 U/L H U/L (22-51) Urine Color Urine Clarity Urine pH Ur Specific [place] Urine Protein Urine Glucose (UA) Urine Ketones Urine Occult Blood Urine Nitrite Urine Bilirubin Urine Urobilinogen Ur Leukocyte Esterase Urine RBC Urine WBC Ur Squamous Epith Cells Urine Bacteria Ur Microscopic Review Urine Culture Comments Abdominal US shows GB sludge. CT shows thickened GB wall, no dilated ducts. Assessment: Probable chronic cholecystitis vs acute cholecystitis in elderly diabetic female. Plan: When I discussed admitting the patient on IV antibiotics and taking her to surgery tomorrow, she said "Oh No", and told me that she did not want to have surgery here, but preferred to go to [facility], where she has had previous surgery. I advised the patient that she should be seen as soon as possible at [place] if she chooses to do that. Dr Grijalva will discuss this with her family members.
[2021-04-03 19:22] VITALS: BP 157/82
== END 2021-04-03 19:49 | disposition home or self-care (01) ==
LOC: ED 12:51
DX: K80.10 Calculus of gallbladder with chronic cholecystitis without obstruction (principal); E86.0 Dehydration; R29.6 Repeated falls; I10 Essential (primary) hypertension; E11.9 Type 2 diabetes mellitus without complications; Z79.84 Long term (current) use of oral hypoglycemic drugs
CPT/HCPCS: 36415; 71045; 74177; 76705; 80053; 81001; 83605; 83690; 85025; 87040; 96360; 96361; 99284; Q9967; 81003; 87086

== ENCOUNTER → 2021-04-06 | Outpatient (CLI) | payer MEDICARE, OTHER | LOC: LAB.N 08:00 | PROVIDERS: ATTEND Family Medicine | DX: R29.6 Repeated falls (principal); N39.0 Urinary tract infection, site not specified | CPT/HCPCS: 87086; 87181 ==

== ENCOUNTER 2021-04-23 23:59 | Outpatient (CLI) | payer MEDICARE, OTHER | END 2021-04-24 | disposition critical access hospital (66) | LOC: EMS 23:59 | DX: R40.4 Transient alteration of awareness (principal) | CPT/HCPCS: A0425; A0429 ==

== ENCOUNTER 2021-04-24 00:14 | Inpatient (IN) | payer MEDICARE, OTHER ==
[2021-04-24] MEDS ORDERED: SODIUM CHLORIDE 0.9% 1,000 ML IV STA (00:42)
--- NOTE | 2021-04-24 00:42 | ED Physician Documentation ---
History of Present Illness - Stated complaint Stated Complaint: AMS - Chief complaint Chief Complaint: Neuro - History obtained from History obtained from: Family (son) - Additonal information Additional information: 80-year-old woman brought in by EMS with altered mental status since having a laparoscopic cholecystectomy on with Dr. Jackman in hospital. Son states that she has had progressive weakness, memory loss since yesterday evening with 3 falls in the last 24 hours, all of them unwitnessed. Patient is taking oral oxycodone and had her last dose 2 and half hours ago. Son states that she has been having trouble drinking enough fluids and may be urinating less than usual. She did have a UTI recently as well. passing flatus. no cough or fever. breathing has become labored this evening. patient is AOX1 (able to state, name, , age after some prompting, but thinks she's in a different state and that it's 89). Review of Systems Unable to obtain: AMS PD PAST MEDICAL HISTORY - Past Medical History Past Medical History: Yes Cardiovascular: Hypertension, High cholesterol Endocrine/Autoimmune: Type 2 diabetes Psych: Other Other Past Medical History: baseline dementia - Past Surgical History Past Surgical History: Yes Ortho: Other /POST ADOPTION COORDINATOR: Mastectomy - Present Medications Home Medications: Ambulatory Orders Medication Instructions Recorded Confirmed Pravastatin [Pravachol] 40 mg PO DAILY 12/13/15 04/24/21 diltiaZEM CD [Cardizem Cd] 240 mg PO DAILY 12/13/15 04/24/21 metFORMIN [Glucophage] 6,500 mg PO DAILY 12/13/15 04/24/21 LORazepam [Lorazepam] 2 mg PO QPM 09/26/19 04/24/21 Docusate Sodium 100Mg Capsule 100 mg PO BID 04/24/21 04/24/21 [Colace 100Mg Capsule] Meloxicam [Mobic] 7.5 mg PO BID 04/24/21 04/24/21 - Allergies Allergies/Adverse Reactions: Allergies Allergy/AdvReac Type Severity Reaction Status Date / Time acetaminophen [From Tylenol] Allergy Itching Verified 04/24/21 00:22 erythromycin base Allergy Anaphylaxis Verified 04/24/21 00:22 oxycodone Allergy Itching Verified 04/24/21 00:22 ibuprofen [From Motrin] AdvReac Mild Itching Verified 04/24/21 00:22 NSAIDS (Non-Steroidal AdvReac Itching Verified 04/24/21 00:22 Anti-Inflamma - Social History Does the pt smoke?: No Smoking Status: Never smoker Does the pt drink ETOH?: No Does the pt have substance abuse?: No - Immunizations Immunizations are current?: Yes - POLST Patient has POLST: No PD ED PE NORMAL - Vitals Vital signs reviewed: Yes - General General: Other (AOX1) - HEENT HEENT: Atraumatic, PERRL, EOMI, Moist mucous membranes, Pharynx benign - Neck Neck: Supple, no meningeal sign - Cardiac Cardiac: Other (borderline tachycardic rate, regular rhythm) - Respiratory Respiratory: Other (BL coarse breath sounds) - Abdomen Abdomen: Other (diffuse discomfort with palpation. laparoscopic sites clean without evidence of infection) - Derm Derm: Normal color, Warm and dry - Extremities Extremities: No deformity - Neuro Neuro: authorization manager 2-12 intact, No motor deficit, No sensory deficit, Other (AOX1) - Psych Psych: Other (confused) Results - Vitals Vitals: Vital Signs - 24 hr 04/24/21 04/24/21 04/24/21 00:15 00:37 02:17 Temperature 36.9 C Heart Rate 116 H 109 H Respiratory 20 13 11 L Rate Blood Pressure 147/70 H 140/97 H 154/77 H O2 Saturation 100 96 93 04/24/21 03:39 Temperature Heart Rate Respiratory 12 Rate Blood Pressure 131/59 H O2 Saturation 96 Oxygen O2 Source Room air - EKG (time done) 0051 Rate: Rate (enter#) (107) Rhythm: Sinus tachycardia [place]: LAD Intervals: Other (short [place] 56) QRS: Normal Ischemia: Non specific changes (minimal STD in lead v6) 0137 Rate: Rate (enter#) (102) Rhythm: Sinus tachycardia [place]: Normal Intervals: Normal [place] QRS: Normal Ischemia: Other (no change from previous ekg) Compare to prior EKG: Unchanged from prior EKG - Labs Labs: Laboratory Tests 04/24/21 04/24/21 04/24/21 01:02 01:02 01:02 WBC 19.9 H RBC 3.51 L Hgb 11.3 L Hct 33.9 L MCV 96.6 MCH 32.2 H MCHC 33.3 RDW 12.9 Plt Count 217 MPV 11.2 H Neut # (Auto) Not Reportable Lymph # (Auto) Not Reportable [place] # (Auto) Not Reportable Eos # (Auto) Not Reportable Baso # (Auto) Not Reportable Absolute Nucleated RBC Not Reportable Total Counted 100 Band Neuts % (Manual) 2 Abnorm Lymph % (Manual) 0 Nucleated RBC % Not Reportable Neutrophils # (Manual) 15.3 H Lymphocytes # (Manual) 3.2 Monocytes # (Manual) 1.2 H Eosinophils # (Manual) 0.2 Basophils # (Manual) 0.0 Differential Comment MANUAL DIFFERENTIAL Platelet Estimate NORMAL (130-450,000) RBC Morph Micro Appear NORMAL APPEARANCE Sodium 125 L Potassium 3.3 L Chloride 87 L Carbon Dioxide 23 Anion Gap 15.0 H BUN 43 H Creatinine 2.6 H Estimated GFR (MDRD) 18 L Glucose 225 H Calcium 7.9 L Total Bilirubin 1.0 AST 34 ALT 24 Alkaline Phosphatase 83 Troponin I High Sens 21.7 H* Total Protein 5.9 L Albumin 3.1 L Globulin 2.8 Albumin/Globulin Ratio 1.1 Lipase 19 L Urine Color Urine Clarity Urine pH Ur Specific [place] Urine Protein Urine Glucose (UA) Urine Ketones Urine Occult Blood Urine Nitrite Urine Bilirubin Urine Urobilinogen Ur Leukocyte Esterase Urine RBC Urine WBC Ur Squamous Epith Cells Urine Bacteria Urine Culture Comments Nasal Adenovirus (PCR) Nasal B. parapertussis DNA (PCR) Nasal Coronavir 229E PCR Nasal Coronavir HKU1 PCR Nasal Coronavir NL63 PCR Nasal Coronavir OC43 PCR Nasal Enterovir/Rhinovir PCR Nasal Influenza B PCR Nasal Influenza A PCR Nasal Parainfluen 1 PCR Nasal Parainfluen 2 PCR Nasal Parainfluen 3 PCR Nasal Parainfluen 4 PCR Nasal RSV (PCR) Nasal B.pertussis DNA PCR Nasal C.pneumoniae (PCR) Gregorio Human Metapneumo PCR Nasal M.pneumoniae (PCR) Nasal SARS-CoV-2 (PCR) 04/24/21 04/24/21 01:15 01:48 WBC RBC Hgb Hct MCV MCH MCHC RDW Plt Count MPV Neut # (Auto) Lymph # (Auto) [place] # (Auto) Eos # (Auto) Baso # (Auto) Absolute Nucleated RBC Total Counted Band Neuts % (Manual) Abnorm Lymph % (Manual) Nucleated RBC % Neutrophils # (Manual) Lymphocytes # (Manual) Monocytes # (Manual) Eosinophils # (Manual) Basophils # (Manual) Differential Comment Platelet Estimate RBC Morph Micro Appear Sodium Potassium Chloride Carbon Dioxide Anion Gap BUN Creatinine Estimated GFR (MDRD) Glucose Calcium Total Bilirubin AST ALT Alkaline Phosphatase Troponin I High Sens Total Protein Albumin Globulin Albumin/Globulin Ratio Lipase Urine Color YELLOW Urine Clarity CLEAR Urine pH 6.0 Ur Specific [place] 1.020 Urine Protein NEGATIVE Urine Glucose (UA) 100 H Urine Ketones 15 H Urine Occult Blood NEGATIVE Urine Nitrite NEGATIVE Urine Bilirubin NEGATIVE Urine Urobilinogen 0.2 (NORMAL) Ur Leukocyte Esterase NEGATIVE Urine RBC 0-5 Urine WBC 0-3 Ur Squamous Epith Cells RARE Squamous Urine Bacteria Few Urine Culture Comments NOT INDICATED Nasal Adenovirus (PCR) NOT DETECTED Nasal B. parapertussis DNA (PCR) NOT DETECTED Nasal Coronavir 229E PCR NOT DETECTED Nasal Coronavir HKU1 PCR NOT DETECTED Nasal Coronavir NL63 PCR NOT DETECTED Nasal Coronavir OC43 PCR NOT DETECTED Nasal Enterovir/Rhinovir PCR NOT DETECTED Nasal Influenza B PCR NOT DETECTED Nasal Influenza A PCR NOT DETECTED Nasal Parainfluen 1 PCR NOT DETECTED Nasal Parainfluen 2 PCR NOT DETECTED Nasal Parainfluen 3 PCR NOT DETECTED Nasal Parainfluen 4 PCR NOT DETECTED Nasal RSV (PCR) NOT DETECTED Nasal B.pertussis DNA PCR NOT DETECTED Nasal C.pneumoniae (PCR) NOT DETECTED Greg[place] Human Metapneumo PCR NOT DETECTED Nasal M.pneumoniae (PCR) NOT DETECTED Nasal SARS-CoV-2 (PCR) NOT DETECTED PD MEDICAL DECISION MAKING - ED course ED course: 80yF p/w frequent falls, weakness, AMS since lap pham 3 days ago. will conduct traumatic and medical evaluation and provide IVF given her recent history of decreased po intake. Departure - Departure Disposition: 66 [facility] DC/Xfer Clinical Impression: Hyponatremia, CHERISE (acute kidney injury), AMS (altered mental status), Recent major surgery, Atelectasis of both lungs, Pulmonary nodule Leukocytosis Qualifiers: Leukocytosis type: leukemoid reaction Qualified Code(s): D72.823 - Leukemoid reaction Discharge Date/Time: 04/24/21 04:36
[2021-04-24] MEDS ORDERED: IOVERSOL 320 100 ML VIAL IVP ONE (01:10)
[2021-04-24 01:23] LABS: ALBUMIN 3.1 g/dL (3.2-5.5); ALBUMIN/GLOBULIN RATIO 1.1 (1.0-2.2); CALCIUM 7.9 mg/dL (8.5-10.3); CREATININE 2.6 mg/dL (0.4-1.0); POTASSIUM 3.3 mmol/L (3.5-5.0); TOTAL PROTEIN 5.9 g/dL (6.7-8.2)
[2021-04-24 01:25] LABS: BILIRUBIN,URINE NEGATIVE (NEGATIVE); GLUCOSE, URINE (UA) 100 mg/dL (NEGATIVE); KETONES,URINE (UA) 15 mg/dL (NEGATIVE); LEUKOCYTE ESTERASE, URINE NEGATIVE (NEGATIVE); NITRITE,URINE NEGATIVE (NEGATIVE); OCCULT BLOOD,URINE NEGATIVE (NEGATIVE); PROTEIN,URINE NEGATIVE (NEGATIVE); UROBILINOGEN,URINE 0.2 (NORMAL) E.U./dL (NORMAL)
[2021-04-24 01:29] LABS: CLARITY,URINE CLEAR (CLEAR)
[2021-04-24 01:31] LABS: BACTERIA,URINE Few /HPF (None Seen); RBC,URINE 0-5 /HPF (0-5); SQUAMOUS EPITHELIAL CELL,UR RARE Squamous (<= Few); WBC,URINE 0-3 /HPF (0-5)
[2021-04-24] MEDS ORDERED: LACTATED RINGERS 1,000 ML IV STA (01:39)
[2021-04-24 02:49] LABS: B. PARAPERTUSSIS- RESP PCR PAN NOT DETECTED; B. PERTUSSIS- RESP PCR PANEL NOT DETECTED; C. PNEUMONIAE- RESP PCR PANEL NOT DETECTED; CORONAVIRUS 229E-RESP PCR NOT DETECTED; CORONAVIRUS HKU1-RESP PCR NOT DETECTED; CORONAVIRUS NL63-RESP PCR NOT DETECTED; CORONAVIRUS OC43-RESP PCR NOT DETECTED; HUMAN METAPNEUMOVIRUS NOT DETECTED; INFLUENZA A- RESP PCR PANEL NOT DETECTED; INFLUENZA B - RESP PCR PANEL NOT DETECTED; M. PNEUMONIAE- RESP PCR PANEL NOT DETECTED; PARAINFLUENZA VIRUS 1 NOT DETECTED; PARAINFLUENZA VIRUS 2 NOT DETECTED; PARAINFLUENZA VIRUS 3 NOT DETECTED; PARAINFLUENZA VIRUS 4 NOT DETECTED; RHINOVIRUS/ENTEROVIRUS NOT DETECTED; RSV- RESP PCR PANEL NOT DETECTED; SARS-CoV-2 -RESP PCR PANEL NOT DETECTED
[2021-04-24] MEDS ORDERED: MORPHINE 2 MG/ML CARPUJECT IVP PRN (03:54)
[2021-04-24] MEDS ORDERED: LACTATED RINGERS 1,000 ML IV SCH (04:00)
--- NOTE | 2021-04-24 04:26 | HISTORY & PHYSICAL EXAMINATION ---
Chief Complaint - Chief Complaint Chief Complaint: Confusion History of Present Illness - Admitted From Admitted From:: Home - History Obtained From Records Reviewed: [employer] [facility] History obtained from: Dr. Coe, patient's son Exam Limitations: Patient is lethargic, snoring - History of Present Illness HPI Comment/Other: She is a 80-year-old female who has type 2 diabetes mellitus and has been gradually failing at home over the last year. She has been having increasing forgetfulness. At times maría elena confusion. For instance she would drive to her son's house for Tuesday dinner and forget what day it was a why she was there. Son feels she drinks a little bit too much. More than 2 glasses of wine a day. Got much worse this summer. She also has chronic insomnia and will state that she goes for for 5 days without sleep and must have her benzodiazepines and Ambien in order to sleep. Over the last month the children are started to realize that maybe they should have stepped in sooner with mom's medications and figuring out what was going on with her. For instance they have found bottles of Metformin that have been unopened and picked up from the pharmacy. In addition to memory loss and forgetfulness, she has been having increasing musculoskeletal joint pain. But she is "allergic" to opiates and Tylenol which will induce itching. Which means her pain is not controlled, which means she cannot sleep, which means she takes more benzodiazepines or Ambien. With this has been increasing falls. A fall in 2015 resulted in a nondisplaced oblique fracture of the femur. She was also seen in the urgent care clinic March 31 due to pain in her joints and falls. She was diagnosed as a UTI and given antibiotics. She had shoulder injections. The children have been in the process of transitioning her to a [facility] facility for permanent placement. She was then seen April 03 in the emergency room because of 4 falls in 2 weeks. She was vague about the details. Her son who is here dariel says that she was never really clear about why she was falling. She fell yet again and was laying on the floor when the patient's [id number] found her. Brought her to the emergency room. She was diagnosed as dehydration with ultrasound of the inferior vena cava and given saline. Labs showed her to have elevated liver enzymes without any pain. Ultrasound of the abdomen showed cholecystitis without a Ramos sign. CT of the abdomen confirmed cholecystitis without intra hepatic biliary ductal dilatation. General surgery was consulted and he felt that she should have her gallbladder taken out. The patient did not want to have surgery here. As such she was discharged, and it took 2 weeks for her to get her gallbladder taken out. That was taken out 3 days ago. Since discharge she has not done well. She has been confused. Her son is basically moved in with her and is making sure she is eating and drinking. While she is not eating very much she is drinking water and electrolyte solutions. Starting yesterday evening, her son feels that her memory loss, and confusion is much worse. He does not describe cough, shortness of breath. No fever fever. No chills . However she is panting at times and he does not know why. Just increasing confusion. She has been taking oxycodone for pain but not with increasing amounts. There has been no emesis. No diarrhea. No syncope. No chest pain. She was evaluated by Dr. Coe in the emergency room. Patient's temperature is 36.9. Heart rate 116. Blood pressure 147/70. Respirations 20 and she is 100% on room air. Mucous membranes are not dry. Bilateral coarse breath sounds. Abdomen had diffuse discomfort with palpation. Laparoscopic sites were clean. Extremities were warm and dry. She was oriented x1. She underwent a head CT, chest CT, cervical spine CT, and an abdominal CT. Final reports are not in the electronic medical record but per verbal report of Dr. Coe, nothing acute was found.She has atelectasis. A pulmonary nodule. She does not have urinary obstruction. She does not have a UTI. She does not have pneumonia.She is hyponatremic to 125. Hypokalemic to 3.3. BUN is 43, creatinine 2.6. Random glucose is 225. Troponin is 21.7. Lactic acid is drawn and pending. 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 She went to [facility] rehab in December 2015.) /BATCH MIXER OPERATOR: reports: Hysterectomy, Mastectomy - Family & Social History Family History Comment/Other: Dad at age 69 of heart attack. Mom at age 88 of complications of dementia and had DM. Of 7 siblings one is . Her son is unable to remember what that sibling of. As far as he knows his uncles and aunts are all healthy. She has 3 children. They are all healthy. No high blood pressure, diabetes. 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 Smoked many many decades ago. Alcohol abuse is described by the son as 2 large glasses of wine a day on a daily basis. Benzodiazepine abuse. No history of recreational substance abuse. She is . As she became older and a little lonely, she had to decide which of her 3 children she wanted to go live nearby. She decided to come to would be on because it so beautiful here and she could be near her grandchildren. - Substance History Use: Uses substance without health or social issues: Alcohol Use Issues: Mood Disorder, Sleep Disorder - POLST Patient has POLST: No POLST Status: Full Code Meds/Allgy - Home Medications Home Medications: Ambulatory Orders Medication Instructions Recorded Confirmed Pravastatin [Pravachol] 40 mg PO DAILY 12/13/15 04/24/21 [id number] CD [Cardizem Cd] 240 mg PO DAILY 12/13/15 04/24/21 metFORMIN [Glucophage] 6,500 mg PO DAILY 12/13/15 04/24/21 LORazepam [Lorazepam] 2 mg PO QPM 09/26/19 04/24/21 Docusate Sodium 100Mg Capsule 100 mg PO BID 04/24/21 04/24/21 [Colace 100Mg Capsule] Meloxicam [Mobic] 7.5 mg PO BID 04/24/21 04/24/21 - Allergies Allergies/Adverse Reactions: Allergies Allergy/AdvReac Type Severity Reaction Status Date / Time acetaminophen [From Tylenol] Allergy Itching Verified 04/24/21 00:22 erythromycin base Allergy Anaphylaxis Verified 04/24/21 00:22 oxycodone Allergy Itching Verified 04/24/21 00:22 ibuprofen [From Motrin] AdvReac Mild Itching Verified 04/24/21 00:22 NSAIDS (Non-Steroidal AdvReac Itching Verified 04/24/21 00:22 Anti-Inflamma Review of Systems - Constitutional Constitutional: reports: Fatigue, Poor appetite - Eyes Eyes: reports: Blurred vision, Vision loss. denies: Pain, Irritation, Amaurosis - Ears, Nose & Throat Ears, Nose & Throat: reports: Hearing loss. denies: Hearing aids, Tinnitus, Vertigo, Nasal discharge, Sore throat, Hoarseness - Cardiovascular Cariovascular: reports: Exertional dyspnea, Decr. exercise tolerance. denies: Irregular heart rate, Palpitations, Chest pain, Edema, Lightheadedness - Respiratory Respiratory: denies: Cough, Sputum production, Wheezing, Orthopnea - Gastrointestinal Gastrointestinal: reports: Abdominal pain, Nausea. denies: Abdominal distention, Constipation, Diarrhea, Change in bowel habits, Rectal bleeding, Vomiting - Genitourinary Genitourinary: reports: Incontinence. denies: Dysuria, Frequency, Urgency, Hematuria - Musculoskeletal Musculoskeletal: reports: Back pain, Stiffness, Limited range of motion, Joint pain. denies: Muscle pain - Integumentary Integumentary: denies: Rash, Pruritis, Lesions, Dryness - Neurological Neurological: reports: General weakness, Memory problems. denies: Focal weakness, Headache, Dizziness - Psychiatric Psychiatric: denies: Depression, Anxiety, Suicidal, Delusions, Hallucinations - Endocrine Endocrine: denies: Polyuria, Polydypsia, Polyphagia - Hematologic/Lymphatic Hematologic/Lymphatic: denies: Anemia, Bruising, Petechiae - All Other Systems All Other Systems: reports: Other (Review of systems is provided by her son. He states that he sees her once a week. In the last 2 weeks he seen her every day) Prior Level of Functionality: Up until a month ago she was driving. This was even with episodes of confusion where she would forget why she was at her son's house. He felt that she was independent with activities of daily living and was able to dress herself, feed herself and did not use durable medical equipment. Exam - Vital Signs Reviewed Vital Signs: Yes Vital Signs: Vital Signs x48h Temp Pulse Resp BP Pulse Ox 04/24/21 03:39 12 131/59 H 96 04/24/21 02:17 11 L 154/77 H 93 04/24/21 00:37 109 H 13 140/97 H 96 04/24/21 00:15 36.9 C 116 H 20 147/70 H 100 - Physical Exam General Appearance: positive: No acute distress, Other (Deeply asleep elderly woman who is difficult to awaken.) Eyes Bilateral: positive: PERRL, EOMI ENT: positive: No signs of dehydration Neck: positive: No JVD. negative: Stiff neck Respiratory: positive: No respiratory distress, Rhonchi. negative: Wheezes, Rales Cardiovascular: positive: Regular rate & rhythm, Systolic murmur. negative: Gallop/S4, Friction rub Peripheral Pulses: positive: 1+ Abdomen: positive: No organomegaly, Nml bowel sounds, Other (While she is not very awake, she does Say "ouch" as I examine her abdomen.). negative: Guarding, Rebound Skin: positive: Warm, Dry Extremities: positive: Full ROM, No pedal edema Neurologic/Psychiatric: positive: CN's nml (2-12), Motor nml (I do not however sit up or stand due to her severe sleepiness. But she does attempt to follow commands. There is no focal motor deficit. No tremors. No fasciculations.), Disoriented to person, Disoriented to place, Disoriented to time Conclusion/Plan - Problem List (1) Metabolic encephalopathy Conclusion/Plan: Multifactorial in this elderly woman. The impression I get is a gradually worsening dementia over the months if not years. She may have vascular dementia with acute decompensation from current illness. 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 She has electrolyte abnormalities. There is no evidence of infection at this time. BUN and creatinine indicate dehydration in spite of normal oral mucosa and a history of adequate fluid intake. She may also have benzodiazepine withdrawal. Plan: Inpatient status Correct the individual factors Once metabolic encephalopathy lifts, her son is requesting transfer to [facility] facility for strengthening, cognitive deficit evaluation and treatment (2) CHERISE (acute kidney injury) Conclusion/Plan: With hyponatremia, hypokalemia. While she has not been eating very much solid food according to the son, she has been adequately drinking water and electrolyte supplements. CT of the abdomen does not show obstruction. She does not have a UTI. She is on Mobic which can be associated with causing kidney damage, her BUN and creatinine have abruptly risen since surgery. Bedside RN does confirm that the patient had a straight catheter urine and is making urine. Standing assumption is that she is dehydrated. Assessment/plan Hydrate with lactated Ringer's. Recheck BUN and creatinine in the morning. Avoid nephrotoxic agents. (3) Type II diabetes mellitus with complication, uncontrolled Conclusion/Plan: She is hyperglycemic. Possibility of not taking her medications for quite some time. However this may be appropriate in view of her kidney function. Plan: Make sure she is not a lactic acidosis and get a lactic acid Check A1c in the morning Lantus 5 units at night and sliding scale insulin with food during the day (4) Elevated troponin Conclusion/Plan: In a renal failure patient, most likely just due to the renal failure. There is tachycardia but no arrhythmia, no chest pain. We will repeat troponin in the morning (5) Falls frequently Conclusion/Plan: This is in a patient who has type 2 diabetes mellitus and may have peripheral neuropathy. She has spinal stenosis which would contribute to that. She has a history of mixing benzodiazepines and alcohol as well. Plan: Physical therapy evaluation and treatment Occupational Therapy for cognitive eval and treatment (6) Leukocytosis Conclusion/Plan: At this time no suspicion of infection and that she does not have a fever. Atelectasis is present but no pneumonia. Urinalysis is clear. While abdomen has mild diffuse generalized tenderness, it is nonacute presentation and a subsequent sequela of surgery. Air is seen in the biliary tree according to Dr. Coe but this is suspected to be postoperative changes from her cholecystectomy. Plan: No antibiotics at this time. We will continue to monitor for signs and symptoms of possible infection and need for antibiotics. Qualifiers: Leukocytosis type: leukemoid reaction Qualified Code(s): D72.823 - Leukemoid reaction (7) Dementia Conclusion/Plan: Her son's history is that of a gradually deteriorating female over the last year may be more. Memory loss. Falls. Much like her metabolic encephalopathy, the causes are multifactorial. She is type 2 diabetes mellitus that is not well c ontrolled. She has a history of hypertension. Those 2 combined could give her vascular dementia. She has a tendency to drink too much and take too many benzodiazepines which could interact and also cause memory loss. Plan: It is hoped that once she is in a regular nutritional status, medications are being monitored, and she gets rehab, that she might improve enough to return to independent living. At this time, as her power of attorney at law, he does not know what her advanced directives are with regards to resuscitative wishes. He has not discussed that with her and has not discussed this with his other siblings. As such by default she will be a full code. Qualifiers: Dementia type: associated with other underlying disease Dementia behavioral disturbance: without behavioral disturbance Qualified Code(s): F02.80 - Dementia in other diseases classified elsewhere without behavioral disturbance (8) Alcohol consumption heavy Conclusion/Plan: She does not appear to have the lab findings of cirrhosis. LFTs have come back down with her gallbladder removed. She does not have macrocytosis. There is no mention of cirrhosis or portal hypertension per Dr. Coe's notes. Plan: We will carefully monitor Check B12 and folate with anemia panel Supplement with multivitamin and thiamine daily p.o. (9) KIRAN (obstructive sleep apnea) Conclusion/Plan: On exam tonight. But there is no hypoxemia. She is not described as having a CPAP mask. - Lab Results Lab results reviewed: Yes Fish Bones: 04/24/21 01:02 04/24/21 01:02 - Diagnostic Imaging Results Diagnostic Imaging Results: positive: Other (Reports not available. Discussed with Dr. Coe) - EKG Results EKG Interpreted Independently: No EKG Comparison: No prior EKG EKG Findings: Sinus tachycardia. Poor R wave progression. Nonspecific ST-T wave changes. Core Measures - Anticipated LOS I expect patient to be DC'd or transferred within 96 hours.: Yes - DVT/VTE - Prophylaxis VTE/DVT Device ordered at admit?: Yes
[2021-04-24] MEDS: SODIUM CHLORIDE 0.9% 1,000 ML IV SCH ×3 (05:12→22:35)
[2021-04-24] MEDS: SODIUM CHLORIDE FLUSH 0.9% 10 ML SYRINGE IVP PRN (05:17)
[2021-04-24 05:58] LABS: CREATININE 2.3 mg/dL (0.4-1.0); POTASSIUM 3.4 mmol/L (3.5-5.0)
[2021-04-24 07:49] LABS: BASOPHILS # (AUTO) 0.1 10^3/uL (0.0-0.1); BASOPHILS % (AUTO) 0.3 %; EOSINOPHILS # (AUTO) 0.1 10^3/uL (0.0-0.7); EOSINOPHILS % (AUTO) 0.6 %; HCT - HEMATOCRIT 33.6 % (37.0-47.0); HGB - HEMOGLOBIN 11.7 g/dL (12.0-16.0); LYMPHOCYTES # (AUTO) 1.2 10^3/uL (1.5-3.5); LYMPHOCYTES % (AUTO) 6.3 %; MEAN CORPUSCULAR HEMOGLOBIN 32.4 pg (27.0-31.0); MEAN CORPUSCULAR HGB CONC 34.8 g/dL (32.0-36.0); MEAN CORPUSCULAR VOLUME 93.1 fL (81.0-99.0); MEAN PLATELET VOLUME 11.2 fL (7.9-10.8); MONOCYTES # (AUTO) 1.1 10^3/uL (0.0-1.0); MONOCYTES % (AUTO) 5.9 %; NEUTROPHILS # (AUTO) 15.6 10^3/uL (1.5-6.6); NEUTROPHILS % (AUTO) 85.9 %; PLT - PLATELET COUNT 209 10^3/uL (130-450); RED BLOOD COUNT 3.61 10^6/uL (4.20-5.40); RED CELL DISTRIBUTION WIDTH 12.6 % (12.0-15.0); WHITE BLOOD COUNT 18.2 x10^3/uL (4.8-10.8)
[2021-04-24] MEDS: INSULIN GLARGINE 300 UNIT/3 ML PEN SUBQ SCH (08:03)
[2021-04-24] MEDS: INSULIN ASPART 300 UNIT/3 ML PEN SUBQ SCH ×4 (08:04→21:29)
[2021-04-24] MEDS: PRENATAL VITAMIN TABLET PO SCH (08:07)
[2021-04-24] MEDS: POTASSIUM CHLORIDE 20 MEQ TABLET PO SCH ×3 (08:07→21:15)
--- NOTE | 2021-04-24 08:13 | CT Report ---
PROCEDURE: HEAD WO INDICATIONS: 3 unwitnessed falls in 24h, ams TECHNIQUE: Noncontrast 4.5 mm thick angled axial sections acquired from the foramen magnum to the vertex. For r adiation dose reduction, the following was used: automated exposure control, adjustment of mA and/or kV according to patient size. COMPARISON: None FINDINGS: Image quality: Excellent. CSF spaces: Basal cisterns are patent. No extra-axial fluid collections. The ventricles are symmet dennis in size and shape. Brain: No intracranial bleeds or masses. There is cerebral volume loss for age, with resultant vent ricular and sulcal prominence. There are periventricular and deep white matter chronic small vessel ischemic changes. There is intracranial internal carotid artery atherosclerosis. Skull and face: Calvarium and visualized facial bones appear intact, without suspicious lesions. Sinuses: Visualized sinuses and mastoids are clear. IMPRESSION: No acute intracranial disease process. Reviewed by: Nara Raza MD, PhD on 04/24/2021 8:12 AM PDT Approved by: Nara Raza MD, PhD on 04/24/2021 8:12 AM PDT Station ID: [id number]
--- NOTE | 2021-04-24 08:15 | CT Report ---
PROCEDURE: CERVICAL SPINE WO INDICATIONS: 3 unwtinessed falls in 24h, ams TECHNIQUE: Noncontrast 3 mm thick sections acquired from the skull base to the T4 level. Sagittal and coronal r eformats were then constructed. For radiation dose reduction, the following was used: automated exp osure control, adjustment of mA and/or kV according to patient size. COMPARISON: None. FINDINGS: Image quality: Excellent. Bones: No fractures or dislocations. Visualized superior ribs are intact. Spine degenerative disc disease and facet arthropathy are noted. Soft tissues: Prevertebral soft tissues are normal in thickness. No paravertebral hematomas. No ap ical pneumothoraces. IMPRESSION: No fracture. No acute osseous lesion. If there is continued clinical concern for pathology, then MRI should be considered for further evaluation. Reviewed by: Nara Raza MD, PhD on 04/24/2021 8:14 AM PDT Approved by: Nara Raza MD, PhD on 04/24/2021 8:14 AM PDT Station ID: [id number]
--- NOTE | 2021-04-24 08:30 | CT Report ---
PROCEDURE: ABDOMEN PELVIS WO INDICATIONS: AMS, abd pain s/p surg TECHNIQUE: 5 mm thick sections acquired from the diaphragms through the pubic symphysis. 5 mm thick coronal and sagittal reformats were acquired. For radiation dose reduction, the following was used: automated exposure control, adjustment of mA and/or kV according to patient size. COMPARISON: CT abdomen pelvis 04/03/2021, ultrasound abdomen 04/03/2021. FINDINGS: Image quality: There is mild motion artifact. Lung bases: There are linear areas of atelectasis within the lung bases as well as small areas of co nsolidation in the inferior lower lobes. No pleural effusions. Heart size is enlarged. There is a sma ll hiatal hernia. Solid organs: Noncontrast evaluation of the liver demonstrates no discrete hepatic lesions. The gall bladder is surgically absent with surgical clips in the bladder fossa. There is an associated loculat ed fluid collection measuring approximately 2.4 x 1.5 x 3.3 cm which is incompletely evaluated in the absence of intravenous and oral contrast. This may represent a tortuous loop of the duodenum versus a postoperative collection. Biliary system is non dilated. Pancreas demonstrates no peripancreatic f at stranding or fluid collections. No pancreatic duct dilatation. Spleen is normal in size. No adrena l nodules. Kidneys demonstrate no hydronephrosis. Peritoneum and bowel: Visualized bowel loops are normal in caliber. There is mild gaseous distention of the distal descending and proximal transverse colon with air-fluid levels which may reflect a mil d ileus. No definite evidence of obstruction. There is a small amount of intraperitoneal free air predominantly localized in the right upper quadra nt. There is minimal free fluid in the right upper quadrant. Findings likely represent sequelae of re cent surgery. Nodes and vessels: No retroperitoneal or mesenteric adenopathy by size criteria. Aorta and inferior vena cava are normal in size. Bones: No suspicious bony lesions. There is a superior endplate compression deformity of the L1 patricia tebral body of indeterminate acuity. This demonstrates loss of height of up to approximately 40%. The re is mild associated spinal canal narrowing at T12-L1. Miscellaneous: There is stranding and cutaneous gas in the intraabdominal wall likely representing a surgical port site. No ventral hernias. Pelvis: The bladder demonstrates normal wall thickness. The uterus is surgically absent. No pelvic lymphadenopathy by size criteria. No inguinal hernias. IMPRESSION: 1. Small amount of intraperitoneal free air predominantly in the right upper quadrant likely related to sequelae of recent surgery. Recommend continued clinical follow-up and if indicated a short-term f ollow-up repeat study may be performed to exclude viscus injury. 2. Small fluid collection in the gallbladder fossa is incompletely evaluated in the absence of intrav enous and oral contrast. Although this may represent a tortuous dilated segment of the adjacent duode num, a postsurgical collection such as a biloma, developing abscess, or seroma cannot be excluded. If clinical concern persists, a repeat study with intravenous and oral contrast may be performed for fu rther evaluation. 3. Small areas of consolidation in the lung bases. Although this may reflect confluent areas of atele ctasis related to surgery, the appearance may also represent pneumonia. The findings were discussed with Dr. Macias on 04/24/2021 at 8:15 AM. Reviewed by: Severino Bauer MD on 04/24/2021 8:28 AM PDT Approved by: Severino Bauer MD on 04/24/2021 8:28 AM PDT Station ID: [id number]
[2021-04-24] MEDS ORDERED: levoFLOXacin 750 MG/150 ML 750 MG/150 ML BAG IV SCH (09:00)
[2021-04-24] MEDS: THIAMINE 100 MG TABLET PO SCH (09:37)
[2021-04-24] MEDS: SODIUM CHLORIDE FLUSH 0.9% 10 ML SYRINGE IVP SCH ×2 (09:40→17:22)
[2021-04-24] MEDS: ENOXAPARIN 30 MG/0.3 ML SYRINGE SUBQ SCH (09:41)
--- NOTE | 2021-04-24 10:42 | PROVIDER PROGRESS NOTE ---
Assessment/Plan - Problem List (1) Metabolic encephalopathy Assessment/Plan: Etiology: Likely Multifactorial. Secondary to worsening dementia, acute decompensation from current illness, ?infection, electrolyte imbalance, dehydration and/or medication Goal would be to treat underlying causes Currently receiving IV hydration with normal saline at 125 mL/h. Potassium being replaced with potassium chloride 40 mEq p.o. [address] of the abdomen/pelvis Is concerned for possible biloma, developing abscess or seroma. WBC was 18 this morning. Patient is on empiric antibiotics with Flagyl and Levaquin. (2) Leukocytosis Qualifiers: Leukocytosis type: leukemoid reaction Qualified Code(s): D72.823 - Leukemoid reaction Assessment/Plan: CT of the abdomen/pelvis Is concerned for possible biloma, developing abscess or seroma. WBC was 18 this morning. Patient is on empiric antibiotics with Flagyl and Levaquin. Interventional radiology recommended a HIDA scan. General surgery suggested an ERCP. I have contacted [facility], [facility] and [facility]. This facilities at high capacity And have no availability at the moment. However her name is on the there is waiting list and we will be contacted for possible transfer as soon as an opening presents (3) CHERISE (acute kidney injury) Assessment/Plan: Patient's creatinine is 2.3 with an estimated GFR of 21. Anticipating further improvement with IV hydration. She is currently on normal saline at 100 mL/h. (4) Dementia Qualifiers: Dementia type: associated with other underlying disease Dementia behavioral disturbance: without behavioral disturbance Qualified Code(s): F02.80 - Dementia in other diseases classified elsewhere without behavioral disturbance (5) Falls frequently Assessment/Plan: This may be secondary to Diabetic neuropathy and/or medication. She also has spinal stenosis which could be contributing. PT/OT to evaluate and treat. Occupational Therapy for cognitive eval. Patient may need placement at a nursing facility. (6) KIRAN (obstructive sleep apnea) Assessment/Plan: Noted on exam at time of admission. Patient was not hypoxic. Does not use a CPAP mask. (7) Type II diabetes mellitus with complication, uncontrolled Assessment/Plan: Globin A1c was 6.7. Lantus 5 units subcu every morning. Sliding scale insulin. Accu-Cheks before every meal and at bedtime. - Current Meds Current Meds: Current Medications Generic Name Dose Route Start Last Admin Trade Name Freq PRN Reason Stop Dose Admin Enoxaparin Sodium 30 mg 04/24/21 09:00 04/24/21 09:41 Enoxaparin 30 Mg/0.3 Ml Syringe SUBQ 30 mg DAILY CARLOS Administration Sodium Chloride 1,000 mls @ 125 mls/hr 04/24/21 03:00 04/24/21 10:08 Normal Saline 0.9% IV 0 mls/hr .Q8H CARLOS Infusion Lactated Ringer's 1,000 mls @ 100 mls/hr 04/24/21 04:00 04/24/21 05:17 Lr IV Not Given .Q10H CARLOS Levofloxacin 750 mg in 150 mls @ 100 mls/hr 04/24/21 09:00 04/24/21 10:08 Levaquin 750 Mg/150 Ml IV 100 mls/hr Q48H CARLOS Administration Insulin Aspart 1 - 5 unit 04/24/21 08:00 04/24/21 08:04 Insulin Aspart 300 Unit/3 Ml Pen SUBQ 1 unit 0800,1200,1700,2100 CARLOS Administration Protocol Insulin Glargine 5 unit 04/24/21 08:00 04/24/21 08:03 Insulin Glargine 300 Unit/3 Ml Pen SUBQ 5 unit QDBREAKFAST CARLOS Administration Potassium Chloride 40 meq 04/24/21 06:00 04/24/21 08:07 Potassium Chloride 20 Meq Tablet PO 04/28/21 05:59 40 meq TID CARLOS Administration Multivit/Folic Acid/Iron 1 tab 04/24/21 08:00 04/24/21 08:07 Vitamin Tablet PO 1 tab DAILYWM CARLOS Administration Sodium Chloride 10 ml 04/24/21 03:54 04/24/21 05:17 Sodium Chloride Flush 0.9% 10 Ml Syringe IVP 10 ml PRN PRN Administration NEEDED PER PROVIDER ORDERS Sodium Chloride 10 ml 04/24/21 09:00 04/24/21 09:40 Sodium Chloride Flush 0.9% 10 Ml Syringe IVP Not Given 0100,0900,1700 CARLOS Thiamine HCl 100 mg 04/24/21 09:00 04/24/21 09:37 Thiamine 100 Mg Tablet PO 100 mg DAILY CARLOS Administration - Lab Result Fish Bone Diagrams: 04/25/21 06:48 04/25/21 06:48 Subjective - Subjective Patient Reports: Other (Resting comfortably in bedside chair at time of exam. Son was present at bedside. Patient appears confused and somnolent. She intermittently falls asleep. She does not appear to be in any significant pain.+1 lower extremity edema) Objective Vital Signs: Vital Signs - 24 hr 04/24/21 04/24/21 04/24/21 00:15 00:37 02:17 Temperature 36.9 C Heart Rate 116 H 109 H Heart Rate [ Radial] Respiratory 20 13 11 L Rate Blood Pressure 147/70 H 140/97 H 154/77 H Blood Pressure [Right Brachial artery] O2 Saturation 100 96 93 04/24/21 04/24/21 03:39 08:00 Temperature 36.7 C Heart Rate Heart Rate [ 104 H Radial] Respiratory 12 22 Rate Blood Pressure 131/59 H Blood Pressure 142/55 H [Right Brachial artery] O2 Saturation 96 93 Oxygen O2 Source Room air I&O (Last 24 Hrs): Intake and Output Totals x24h 04/22/21 04/23/21 04/24/21 23:59 23:59 23:59 Intake Total 2816.667 Output Total 0 Balance 2816.667 General: Mild distress, Other (Though awake is not oriented to place time or reason.) HEENT: PERRLA, EOMI Neck: Supple, No JVD Neuro: Disoriented, Non Focal, Other Cardiovascular: Other (Mildly tachycardic) Respiratory: Chest non-tender, No respiratory distress, Breath sounds nml Abdomen: Normal bowel sounds, Soft, Other (Mild tenderness to palpate) Extremities: Other (+1 lower extremity edema) Skin: No rashes, No breakdown, No significant lesion - Results Results: Laboratory Results WBC 18.2 x10^3/uL (4.8-10.8) H 04/24/21 07:36 Corrected WBC Cancelled 04/24/21 01:02 RBC 3.61 10^6/uL (4.20-5.40) L 04/24/21 07:36 Hgb 11.7 g/dL (12.0-16.0) L 04/24/21 07:36 Hct 33.6 % (37.0-47.0) L 04/24/21 07:36 MCV 93.1 fL (81.0-99.0) 04/24/21 07:36 MCH 32.4 pg (27.0-31.0) H 04/24/21 07:36 MCHC 34.8 g/dL (32.0-36.0) 04/24/21 07:36 RDW 12.6 % (12.0-15.0) 04/24/21 07:36 Plt Count 209 10^3/uL (130-450) 04/24/21 07:36 MPV 11.2 fL (7.9-10.8) H 04/24/21 07:36 Neut # (Auto) 15.6 10^3/uL (1.5-6.6) H 04/24/21 07:36 Lymph # (Auto) 1.2 10^3/uL (1.5-3.5) L 04/24/21 07:36 Park # (Auto) 1.1 10^3/uL (0.0-1.0) H 04/24/21 07:36 Eos # (Auto) 0.1 10^3/uL (0.0-0.7) 04/24/21 07:36 Baso # (Auto) 0.1 10^3/uL (0.0-0.1) 04/24/21 07:36 Absolute Nucleated RBC 0.00 x10^3/uL 04/24/21 07:36 Total Counted Cancelled 04/24/21 01:02 Band Neuts % (Manual) Cancelled 04/24/21 01:02 Reactive Lymphs % (Man) Cancelled 04/24/21 01:02 Abnorm Lymph % (Manual) Cancelled 04/24/21 01:02 Metamyelocytes % Cancelled 04/24/21 01:02 Myelocytes % Cancelled 04/24/21 01:02 Promyelocytes % Cancelled 04/24/21 01:02 Blast Cells % Cancelled 04/24/21 01:02 Plasma Cell % (Manual) Cancelled 04/24/21 01:02 Other Cells % Cancelled 04/24/21 01:02 Nucleated RBC % 0.0 /100WBC 04/24/21 07:36 Neutrophils # (Manual) Cancelled 04/24/21 01:02 Lymphocytes # (Manual) Cancelled 04/24/21 01:02 Monocytes # (Manual) Cancelled 04/24/21 01:02 Eosinophils # (Manual) Cancelled 04/24/21 01:02 Basophils # (Manual) Cancelled 04/24/21 01:02 Nucleated RBCs Cancelled 04/24/21 01:02 Differential Comment Cancelled 04/24/21 01:02 Manual Slide Review Cancelled 04/24/21 01:02 WBC Morphology Cancelled 04/24/21 01:02 Platelet Estimate Cancelled 04/24/21 01:02 Platelet Morphology Cancelled 04/24/21 01:02 RBC Morph Micro Appear Cancelled 04/24/21 01:02 Sodium 126 mmol/L (135-145) L 04/24/21 05:43 Potassium 3.4 mmol/L (3.5-5.0) L 04/24/21 05:43 Chloride 90 mmol/L (101-111) L 04/24/21 05:43 Carbon Dioxide 24 mmol/L (21-32) 04/24/21 05:43 Anion Gap 12.0 (6-13) 04/24/21 05:43 BUN 40 mg/dL (6-20) H 04/24/21 05:43 Creatinine 2.3 mg/dL (0.4-1.0) H 04/24/21 05:43 Estimated GFR (MDRD) 21 (>89) L 04/24/21 05:43 Glucose 180 mg/dL (70-100) H 04/24/21 05:43 Lactic Acid 1.9 mmol/L (0.5-2.2) 04/24/21 07:36 Calcium 8.0 mg/dL (8.5-10.3) L 04/24/21 05:43 Total Bilirubin 1.0 mg/dL (0.2-1.0) 04/24/21 01:02 AST 34 IU/L (10-42) 04/24/21 01:02 ALT 24 IU/L (10-60) 04/24/21 01:02 Alkaline Phosphatase 83 IU/L (42-121) 04/24/21 01:02 Ammonia 13.6 umol/L (7-35) 04/24/21 05:43 Troponin I High Sens 21.7 ng/L (2.3-14.8) H* 04/24/21 01:02 Total Protein 5.9 g/dL (6.7-8.2) L 04/24/21 01:02 Albumin 3.1 g/dL (3.2-5.5) L 04/24/21 01:02 Globulin 2.8 g/dL (2.1-4.2) 04/24/21 01:02 Albumin/Globulin Ratio 1.1 (1.0-2.2) 04/24/21 01:02 Lipase 19 U/L (22-51) L 04/24/21 01:02 Urine Color YELLOW 04/24/21 01:15 Urine Clarity CLEAR (CLEAR) 04/24/21 01:15 Urine pH 6.0 PH (5.0-7.5) 04/24/21 01:15 Ur Specific Keller 1.020 (1.002-1.030) 04/24/21 01:15 Urine Protein NEGATIVE mg/dL (NEGATIVE) 04/24/21 01:15 Urine Glucose (UA) 100 mg/dL (NEGATIVE) H 04/24/21 01:15 Urine Ketones 15 mg/dL (NEGATIVE) H 04/24/21 01:15 Urine Occult Blood NEGATIVE (NEGATIVE) 04/24/21 01:15 Urine Nitrite NEGATIVE (NEGATIVE) 04/24/21 01:15 Urine Bilirubin NEGATIVE (NEGATIVE) 04/24/21 01:15 Urine Urobilinogen 0.2 (NORMAL) E.U./dL (NORMAL) 04/24/21 01:15 Ur Leukocyte Esterase NEGATIVE (NEGATIVE) 04/24/21 01:15 Urine RBC 0-5 /HPF (0-5) 04/24/21 01:15 Urine WBC 0-3 /HPF (0-5) 04/24/21 01:15 Ur Squamous Epith Cells RARE Squamous (<= Few) 04/24/21 01:15 Urine Bacteria Few /HPF (None Seen) 04/24/21 01:15 Urine Culture Comments NOT INDICATED 04/24/21 01:15 Nasal Adenovirus (PCR) NOT DETECTED 04/24/21 01:48 Nasal B. parapertussis DNA (PCR) NOT DETECTED 04/24/21 01:48 Nasal Coronavir 229E PCR NOT DETECTED 04/24/21 01:48 Nasal Coronavir HKU1 PCR NOT DETECTED 04/24/21 01:48 Nasal Coronavir NL63 PCR NOT DETECTED 04/24/21 01:48 Nasal Coronavir OC43 PCR NOT DETECTED 04/24/21 01:48 Nasal Enterovir/Rhinovir PCR NOT DETECTED 04/24/21 01:48 Nasal Influenza B PCR NOT DETECTED 04/24/21 01:48 Nasal Influenza A PCR NOT DETECTED 04/24/21 01:48 Nasal Parainfluen 1 PCR NOT DETECTED 04/24/21 01:48 Nasal Parainfluen 2 PCR NOT DETECTED 04/24/21 01:48 Nasal Parainfluen 3 PCR NOT DETECTED 04/24/21 01:48 Nasal Parainfluen 4 PCR NOT DETECTED 04/24/21 01:48 Nasal RSV (PCR) NOT DETECTED 04/24/21 01:48 Nasal B.pertussis DNA PCR NOT DETECTED 04/24/21 01:48 Nasal C.pneumoniae (PCR) NOT DETECTED 04/24/21 01:48 Gregorio Human Metapneumo PCR NOT DETECTED 04/24/21 01:48 Nasal M.pneumoniae (PCR) NOT DETECTED 04/24/21 01:48 Nasal SARS-CoV-2 (PCR) NOT DETECTED 04/24/21 01:48 Sl[address] for [address] Review Cancelled 04/24/21 01:02 ABX Reporting Has patient been on IV antibiotics over the past 48 hours?: Yes
--- NOTE | 2021-04-24 11:49 | PHARMACY PROGRESS NOTE ---
- Best Possible Medication History Admit Date and Time: 04/24/21 0354 Processed by: Nursing Medication History completed: Yes Patient Interview: Completed (MED REC COMPLETED BY NURSING) As the person ultimately responsible for medication therapy, providers are able to order a medication from an existing home medication list in [facility] via the "Reconcile Routine" prior to Confirmation of that medication by business support administrator. Such practice is discouraged except when the physician, in their clinical judgment, deems that a medical need exists for a medication without regard to previous use.
[2021-04-24] MEDS ORDERED: SODIUM CHLORIDE 0.9% 1,000 ML IV SCH ×2 (12:00→18:37)
[2021-04-24] MEDS: metroNIDAZOLE 500 MG/100 ML 500 MG/100 ML BAG IV SCH ×2 (12:07→20:08)
--- NOTE | 2021-04-24 13:02 | CT Report ---
PROCEDURE: CHEST WO INDICATIONS: AMS, tachypnea s/p surg TECHNIQUE: Noncontrast 1mm axial images were acquired from the pulmonary apices to the posterior costophrenic an gles. Axial 5 mm soft tissue kernel reconstructions were performed as well as 8 mm axial MIP and cor onal and sagittal 5 mm reformations. For radiation dose reduction, the following was used: automate d exposure control, adjustment of mA and/or kV according to patient size. COMPARISON: Chest x-ray 04/03/2021 FINDINGS: Image quality: Excellent. Lungs and pleura: Bilateral areas of chronic reticular nodular changes are present. Scattered areas o f streaky opacity are present within the lungs. Prominent dependent changes are present within the ba ses, right greater than left. Small area of consolidation is noted in the right base. No pleural effu sions or pneumothorax. Central and peripheral airways are patent and normal in caliber. Mediastinum: Heart size is enlarged. No pericardial effusion. Coronary calcifications are present. No mediastinal adenopathy by size criteria. Thoracic aorta and central pulmonary arteries are normal in size. Esophagus is normal in caliber. Mild hiatal hernia. Bones and chest wall: No suspicious bony lesions. No vertebral body compression fractures. No axil iliana or supraclavicular adenopathy by size criteria. The thyroid is normal in size and there are no incidental findings. Abdomen: Free intraperitoneal is noted within the partially visualized upper abdomen. Cholecystectom y clips are present at the gallbladder. There is a focal area of incompletely visualized low-attenuat ion surrounding the cholecystectomy clips measuring 3.1 cm. Otherwise, visualized upper abdominal bonita id organs and bowel loops appear normal in the absence of contrast. IMPRESSION: 1. Bilateral effusions with areas of atelectasis. Smaller consolidation is noted in the right base po ssibly developing pneumonia. 2. Partially visualized free air within the upper abdomen. 3. Small low-attenuation collection surrounding cholecystectomy clips as described above. It is incom pletely visualized. This could represent a loop of bowel. However, postsurgical fluid including bilom a cannot be definitively excluded. Please see CT abdomen pelvis report for further details. 4. Free intraperitoneal air identified within the upper abdomen, partially visualized. Please see CT abdomen pelvis report for further details. The above findings are concordant with preliminary report. CLINICAL RECOMMENDATION STATEMENTS: In patients <35 years with an ITN detected on CT, MRI, or extrathyroidal ultrasound, the Committee re commends further evaluation with dedicated thyroid ultrasound if the nodule is "e1 cm and has no susp icious imaging features, and if the patient has normal life expectancy. In patients "e35 years with an ITN detected on CT, MRI, or extrathyroidal ultrasound, the Committee r ecommends further evaluation with dedicated thyroid ultrasound if the nodule is "e1.5 cm and has no s uspicious imaging features, and if the patient has normal life expectancy. (ACR, 2014) Reviewed by: Jessica Qureshi MD on 04/24/2021 1:01 PM PDT Approved by: Jessica Qureshi MD on 04/24/2021 1:01 PM PDT Station ID: [id number]
[2021-04-24 15:50] LABS: ESTIMATED AVERAGE GLUCOSE 146 mg/dL (70-100); HEMOGLOBIN A1c% 6.7 % (4.27-6.07)
[2021-04-24] MEDS: oxyCODONE 5 MG TABLET PO PRN (22:33)
[2021-04-25] MEDS: SODIUM CHLORIDE FLUSH 0.9% 10 ML SYRINGE IVP SCH ×3 (02:33→20:09)
[2021-04-25] MEDS: SODIUM CHLORIDE 0.9% 1,000 ML IV SCH ×3 (04:36→17:32)
[2021-04-25] MEDS: metroNIDAZOLE 500 MG/100 ML 500 MG/100 ML BAG IV SCH ×3 (04:39→20:09)
[2021-04-25] MEDS: POTASSIUM CHLORIDE 20 MEQ TABLET PO SCH ×3 (06:12→21:15)
[2021-04-25] MEDS: THIAMINE 100 MG TABLET PO SCH (06:13)
[2021-04-25] MEDS: PRENATAL VITAMIN TABLET PO SCH (06:13)
[2021-04-25] MEDS: ENOXAPARIN 30 MG/0.3 ML SYRINGE SUBQ SCH (06:21)
[2021-04-25] MEDS: INSULIN GLARGINE 300 UNIT/3 ML PEN SUBQ SCH (06:22)
[2021-04-25 07:06] LABS: CALCIUM 8.7 mg/dL (8.5-10.3); CREATININE 0.7 mg/dL (0.4-1.0); POTASSIUM 4.2 mmol/L (3.5-5.0)
[2021-04-25] MEDS: INSULIN ASPART 300 UNIT/3 ML PEN SUBQ SCH ×4 (07:08→21:17)
[2021-04-25 07:16] LABS: BASOPHILS % (AUTO) 0.2 %; EOSINOPHILS # (AUTO) 0.1 10^3/uL (0.0-0.7); EOSINOPHILS % (AUTO) 0.8 %; HCT - HEMATOCRIT 34.1 % (37.0-47.0); HGB - HEMOGLOBIN 11.3 g/dL (12.0-16.0); LYMPHOCYTES # (AUTO) 0.7 10^3/uL (1.5-3.5); LYMPHOCYTES % (AUTO) 6.8 %; MEAN CORPUSCULAR HEMOGLOBIN 31.7 pg (27.0-31.0); MEAN CORPUSCULAR HGB CONC 33.1 g/dL (32.0-36.0); MEAN CORPUSCULAR VOLUME 95.5 fL (81.0-99.0); MEAN PLATELET VOLUME 11.4 fL (7.9-10.8); MONOCYTES # (AUTO) 0.8 10^3/uL (0.0-1.0); MONOCYTES % (AUTO) 7.6 %; NEUTROPHILS # (AUTO) 9.2 10^3/uL (1.5-6.6); PLT - PLATELET COUNT 220 10^3/uL (130-450); RED BLOOD COUNT 3.57 10^6/uL (4.20-5.40); RED CELL DISTRIBUTION WIDTH 12.9 % (12.0-15.0); WHITE BLOOD COUNT 10.9 x10^3/uL (4.8-10.8)
[2021-04-25] MEDS: diltiaZEM CD 240 MG CAPSULE PO SCH (08:45)
[2021-04-25] MEDS: DOCUSATE SODIUM 100 MG CAPSULE PO SCH ×2 (08:45→21:14)
[2021-04-25] MEDS ORDERED: levoFLOXacin 750 MG/150 ML 750 MG/150 ML BAG IV SCH (10:00)
[2021-04-25] MEDS: oxyCODONE 5 MG TABLET PO PRN (15:50)
--- NOTE | 2021-04-25 16:43 | PROVIDER PROGRESS NOTE ---
Assessment/Plan - Problem List (1) Metabolic encephalopathy Assessment/Plan: Etiology: Likely Multifactorial. Secondary to worsening dementia, acute decompensation from current illness, ?infection, electrolyte imbalance, dehydration and/or medication Improved/resolved. Patient is alert and oriented x4 and is able to provide an accurate history regarding her recent surgery. Her electrolytes have been corrected and her renal function is normal. She is tolerating oral intake well. We will discontinue IV hydration. WBC this morning was 10.9. Continue empiric antibiotics with Flagyl and Levaquin (2) Leukocytosis Qualifiers: Leukocytosis type: leukemoid reaction Qualified Code(s): D72.823 - Leukemoid reaction Assessment/Plan: Patient's white blood cell improved from 18 yesterday down to 10.9 today. She is on Levaquin and Flagyl. She does not have any abdominal pain, nausea or vomiting. She is afebrile and tolerated an diet well. CT of the abdomen/pelvis done 04/24/2021 had raised concern for possible biloma, developing abscess or seroma. Interventional radiology recommended a HIDA scan. General surgery suggested an ERCP. Patient was accepted to [facility] last night 04/24/21 pending bed availability However given improvement in her mentation, white blood cell count, absence of abdominal pain, fever and tolerating oral intake well We will hold off on transfer and continue empiric antibiotics. We will plan on switching patient to oral antibiotics for 1 week and anticipate discharge to [facility] in 2 to 3 days. (3) CHERISE (acute kidney injury) Assessment/Plan: Resolved. Patient's creatinine today is 0.7 with estimated GFR of 81 IV fluids was discontinued today because she is tolerating p.o. intake well. (4) Dementia Qualifiers: Dementia type: associated with other underlying disease Dementia behavioral disturbance: without behavioral disturbance Qualified Code(s): F02.80 - Dementia in other diseases classified elsewhere without behavioral disturbance (5) Falls frequently Assessment/Plan: This may be secondary to Diabetic neuropathy and/or medication. She also has spinal stenosis which could be contributing. PT/OT to evaluate and treat. Occupational Therapy for cognitive eval. She will be going to [facility] upon discharge. Anticipate discharge in 2 to 3 days. (6) KIRAN (obstructive sleep apnea) Assessment/Plan: Noted on exam at time of admission. Patient was not hypoxic. Does not use a CPAP mask. (7) Type II diabetes mellitus with complication, uncontrolled Assessment/Plan: Hemoglobin A1c was 6.7. Lantus 5 units subcu every morning. Sliding scale insulin. Accu-Cheks before every meal and at bedtime. - Current Meds Current Meds: Current Medications Generic Name Dose Route Start Last Admin Trade Name Freq PRN Reason Stop Dose Admin Diltiazem HCl 240 mg 04/25/21 09:00 04/25/21 08:45 Diltiazem Cd 240 Mg Capsule PO 240 mg DAILY CARLOS Administration Docusate Sodium 100 mg 04/25/21 09:00 04/25/21 08:45 Docusate Sodium 100 Mg Capsule PO Not Given BID CARLOS Metronidazole 500 mg in 100 mls @ 100 mls/hr 04/24/21 09:00 04/25/21 12:54 Flagyl 500 Mg/100 Ml IV Infused Q8H CARLOS Infusion Sodium Chloride 1,000 mls @ 175 mls/hr 04/24/21 22:00 04/25/21 15:39 Normal Saline 0.9% IV 175 mls/hr .[id number] CARLOS Infusion Levofloxacin 750 mg in 150 mls @ 100 mls/hr 04/25/21 10:00 04/25/21 14:06 Levaquin 750 Mg/150 Ml IV Infused Q24H CARLOS Infusion Insulin Aspart 1 - 5 unit 04/24/21 08:00 04/25/21 11:32 Insulin Aspart 300 Unit/3 Ml Pen SUBQ 1 unit 0800,1200,1700,2100 CARLOS Administration Protocol Insulin Glargine 5 unit 04/24/21 08:00 04/25/21 06:22 Insulin Glargine 300 Unit/3 Ml Pen SUBQ 5 unit [id number] CARLOS Administration Oxycodone HCl 5 mg 04/24/21 03:54 04/25/21 15:50 Oxycodone 5 Mg Tablet PO 5 mg Q4HR PRN Administration Pain 5 to 7 Potassium Chloride 40 meq 04/24/21 06:00 04/25/21 14:08 Potassium Chloride 20 Meq Tablet PO 04/28/21 05:59 40 meq TID CARLOS Administration Multivit/Folic Acid/Iron 1 tab 04/24/21 08:00 04/25/21 06:13 Vitamin Tablet PO 1 tab DAILYWM CARLOS Administration Sodium Chloride 10 ml 04/24/21 03:54 04/24/21 05:17 Sodium Chloride Flush 0.9% 10 Ml Syringe IVP 10 ml PRN PRN Administration NEEDED PER PROVIDER ORDERS Sodium Chloride 10 ml 04/24/21 09:00 04/25/21 06:13 Sodium Chloride Flush 0.9% 10 Ml Syringe IVP Not Given 0100,0900,1700 CARLOS Thiamine HCl 100 mg 04/24/21 09:00 04/25/21 06:13 Thiamine 100 Mg Tablet PO 100 mg DAILY CARLOS Administration - Lab Result Fish Bone Diagrams: 04/25/21 06:48 04/25/21 06:48 - Additional Planning My Orders: My Active Orders 04/24/21 Dinner Carb-controlled Diet [DIET] 04/25/21 09:00 Docusate Sodium 100Mg Capsule [Colace 100Mg Capsule] 100 mg PO BID diltiaZEM CD [Cardizem Cd] 240 mg PO DAILY 04/25/21 21:00 Pravastatin [Pravachol] 40 mg PO QPM Subjective - Subjective Patient Reports: Other (Patient's clinical status as markedly improved today. She is alert and oriented x4. She recounts an accurate history. She denies any chest pain, dyspnea, abdominal pain, nausea, vomiting, fever or chills. She tolerated her diet well. WBC and renal function normalized) Objective Vital Signs: Vital Signs - 24 hr 04/25/21 04/25/21 04/25/21 02:03 05:37 06:17 Temperature 36.7 C 37 C 36.4 C L Heart Rate 108 H Heart Rate [ Brachial] Heart Rate [ 107 H 106 H Radial] Respiratory 18 18 18 Rate Blood Pressure 143/69 H 158/64 H [Right Brachial artery] O2 Saturation 95 95 94 04/25/21 15:43 Temperature 36.7 C Heart Rate Heart Rate [ 95 Brachial] Heart Rate [ Radial] Respiratory 20 Rate Blood Pressure 133/61 H [Right Brachial artery] O2 Saturation 100 Oxygen O2 Source Room air I&O (Last 24 Hrs): Intake and Output Totals x24h 04/23/21 04/24/21 04/25/21 23:59 23:59 23:59 Intake Total 4527.000 3241.250 Output Total 2049 1500 Balance 2477.000 1741.250 General: Alert, Oriented x3, Cooperative, No acute distress HEENT: Atraumatic, PERRLA, EOMI Neck: Supple, No JVD Neuro: Alert, Non Focal, Oriented Times 3 Cardiovascular: Regular rate Respiratory: Chest non-tender, No respiratory distress, Breath sounds nml Abdomen: Normal bowel sounds, Soft, No tenderness Extremities: No clubbing, No cyanosis, No edema, No tenderness/swelling Skin: No rashes, No breakdown, No significant lesion - Results Results: Laboratory Results WBC 10.9 x10^3/uL (4.8-10.8) H 04/25/21 06:48 Corrected WBC Cancelled 04/24/21 01:02 RBC 3.57 10^6/uL (4.20-5.40) L 04/25/21 06:48 Hgb 11.3 g/dL (12.0-16.0) L 04/25/21 06:48 Hct 34.1 % (37.0-47.0) L 04/25/21 06:48 MCV 95.5 fL (81.0-99.0) 04/25/21 06:48 MCH 31.7 pg (27.0-31.0) H 04/25/21 06:48 MCHC 33.1 g/dL (32.0-36.0) 04/25/21 06:48 RDW 12.9 % (12.0-15.0) 04/25/21 06:48 Plt Count 220 10^3/uL (130-450) 04/25/21 06:48 MPV 11.4 fL (7.9-10.8) H 04/25/21 06:48 Neut # (Auto) 9.2 10^3/uL (1.5-6.6) H 04/25/21 06:48 Lymph # (Auto) 0.7 10^3/uL (1.5-3.5) L 04/25/21 06:48 [place] # (Auto) 0.8 10^3/uL (0.0-1.0) 04/25/21 06:48 Eos # (Auto) 0.1 10^3/uL (0.0-0.7) 04/25/21 06:48 Baso # (Auto) 0.0 10^3/uL (0.0-0.1) 04/25/21 06:48 Absolute Nucleated RBC 0.00 x10^3/uL 04/25/21 06:48 Total Counted Cancelled 04/24/21 01:02 Band Neuts % (Manual) Cancelled 04/24/21 01:02 Reactive Lymphs % (Man) Cancelled 04/24/21 01:02 Abnorm Lymph % (Manual) Cancelled 04/24/21 01:02 Metamyelocytes % Cancelled 04/24/21 01:02 Myelocytes % Cancelled 04/24/21 01:02 Promyelocytes % Cancelled 04/24/21 01:02 Blast Cells % Cancelled 04/24/21 01:02 Plasma Cell % (Manual) Cancelled 04/24/21 01:02 Other Cells % Cancelled 04/24/21 01:02 Nucleated RBC % 0.0 /100WBC 04/25/21 06:48 Neutrophils # (Manual) Cancelled 04/24/21 01:02 Lymphocytes # (Manual) Cancelled 04/24/21 01:02 Monocytes # (Manual) Cancelled 04/24/21 01:02 Eosinophils # (Manual) Cancelled 04/24/21 01:02 Basophils # (Manual) Cancelled 04/24/21 01:02 Nucleated RBCs Cancelled 04/24/21 01:02 Differential Comment Cancelled 04/24/21 01:02 Manual Slide Review Cancelled 04/24/21 01:02 WBC Morphology Cancelled 04/24/21 01:02 Platelet Estimate Cancelled 04/24/21 01:02 Platelet Morphology Cancelled 04/24/21 01:02 RBC Morph Micro Appear Cancelled 04/24/21 01:02 Sodium 141 mmol/L (135-145) 04/25/21 06:48 Potassium 4.2 mmol/L (3.5-5.0) 04/25/21 06:48 Chloride 105 mmol/L (101-111) 04/25/21 06:48 Carbon Dioxide 25 mmol/L (21-32) 04/25/21 06:48 Anion Gap 11.0 (6-13) 04/25/21 06:48 BUN 15 mg/dL (6-20) 04/25/21 06:48 Creatinine 0.7 mg/dL (0.4-1.0) 04/25/21 06:48 Estimated GFR (MDRD) 81 (>89) L 04/25/21 06:48 Glucose 151 mg/dL (70-100) H 04/25/21 06:48 Estimat Average Glucose 146 mg/dL (70-100) H 04/24/21 12:45 Hemoglobin A1c % 6.7 % (4.27-6.07) H 04/24/21 12:45 Lactic Acid 1.9 mmol/L (0.5-2.2) 04/24/21 07:36 Calcium 8.7 mg/dL (8.5-10.3) 04/25/21 06:48 Total Bilirubin 1.0 mg/dL (0.2-1.0) 04/24/21 01:02 AST 34 IU/L (10-42) 04/24/21 01:02 ALT 24 IU/L (10-60) 04/24/21 01:02 Alkaline Phosphatase 83 IU/L (42-121) 04/24/21 01:02 Ammonia 16.1 umol/L (7-35) 04/25/21 06:48 Troponin I High Sens 21.7 ng/L (2.3-14.8) H* 04/24/21 01:02 Total Protein 5.9 g/dL (6.7-8.2) L 04/24/21 01:02 Albumin 3.1 g/dL (3.2-5.5) L 04/24/21 01:02 Globulin 2.8 g/dL (2.1-4.2) 04/24/21 01:02 Albumin/Globulin Ratio 1.1 (1.0-2.2) 04/24/21 01:02 Lipase 19 U/L (22-51) L 04/24/21 01:02 Urine Color YELLOW 04/24/21 01:15 Urine Clarity CLEAR (CLEAR) 04/24/21 01:15 Urine pH 6.0 PH (5.0-7.5) 04/24/21 01:15 Ur Specific [place] 1.020 (1.002-1.030) 04/24/21 01:15 Urine Protein NEGATIVE mg/dL (NEGATIVE) 04/24/21 01:15 Urine Glucose (UA) 100 mg/dL (NEGATIVE) H 04/24/21 01:15 Urine Ketones 15 mg/dL (NEGATIVE) H 04/24/21 01:15 Urine Occult Blood NEGATIVE (NEGATIVE) 04/24/21 01:15 Urine Nitrite NEGATIVE (NEGATIVE) 04/24/21 01:15 Urine Bilirubin NEGATIVE (NEGATIVE) 04/24/21 01:15 Urine Urobilinogen 0.2 (NORMAL) E.U./dL (NORMAL) 04/24/21 01:15 Ur Leukocyte Esterase NEGATIVE (NEGATIVE) 04/24/21 01:15 Urine RBC 0-5 /HPF (0-5) 04/24/21 01:15 Urine WBC 0-3 /HPF (0-5) 04/24/21 01:15 Ur Squamous Epith Cells RARE Squamous (<= Few) 04/24/21 01:15 Urine Bacteria Few /HPF (None Seen) 04/24/21 01:15 Urine Culture Comments NOT INDICATED 04/24/21 01:15 Urine Sodium 70.0 mmol/L 04/24/21 01:15 Nasal Adenovirus (PCR) NOT DETECTED 04/24/21 01:48 Nasal B. parapertussis DNA (PCR) NOT DETECTED 04/24/21 01:48 Nasal Coronavir 229E PCR NOT DETECTED 04/24/21 01:48 Nasal Coronavir HKU1 PCR NOT DETECTED 04/24/21 01:48 Nasal Coronavir NL63 PCR NOT DETECTED 04/24/21 01:48 Nasal Coronavir OC43 PCR NOT DETECTED 04/24/21 01:48 Nasal Enterovir/Rhinovir PCR NOT DETECTED 04/24/21 01:48 Nasal Influenza B PCR NOT DETECTED 04/24/21 01:48 Nasal Influenza A PCR NOT DETECTED 04/24/21 01:48 Nasal Parainfluen 1 PCR NOT DETECTED 04/24/21 01:48 Nasal Parainfluen 2 PCR NOT DETECTED 04/24/21 01:48 Nasal Parainfluen 3 PCR NOT DETECTED 04/24/21 01:48 Nasal Parainfluen 4 PCR NOT DETECTED 04/24/21 01:48 Nasal RSV (PCR) NOT DETECTED 04/24/21 01:48 Nasal B.pertussis DNA PCR NOT DETECTED 04/24/21 01:48 Nasal C.pneumoniae (PCR) NOT DETECTED 04/24/21 01:48 [place] Human Metapneumo PCR NOT DETECTED 04/24/21 01:48 Nasal M.pneumoniae (PCR) NOT DETECTED 04/24/21 01:48 Nasal SARS-CoV-2 (PCR) NOT DETECTED 04/24/21 01:48 Slides for Path Review Cancelled 04/24/21 01:02 ABX Reporting Has patient been on IV antibiotics over the past 48 hours?: Yes
[2021-04-25] MEDS: PRAVASTATIN 40 MG TABLET PO SCH (21:15)
[2021-04-26] MEDS: SODIUM CHLORIDE FLUSH 0.9% 10 ML SYRINGE IVP SCH ×3 (00:42→17:25)
[2021-04-26] MEDS: metroNIDAZOLE 500 MG/100 ML 500 MG/100 ML BAG IV SCH (04:03)
[2021-04-26] MEDS: POTASSIUM CHLORIDE 20 MEQ TABLET PO SCH ×3 (05:23→20:37)
[2021-04-26 06:40] LABS: BASOPHILS % (AUTO) 0.2 %; EOSINOPHILS # (AUTO) 0.1 10^3/uL (0.0-0.7); EOSINOPHILS % (AUTO) 0.6 %; HCT - HEMATOCRIT 32.7 % (37.0-47.0); HGB - HEMOGLOBIN 10.9 g/dL (12.0-16.0); LYMPHOCYTES % (AUTO) 10.1 %; MEAN CORPUSCULAR HEMOGLOBIN 31.7 pg (27.0-31.0); MEAN CORPUSCULAR HGB CONC 33.3 g/dL (32.0-36.0); MEAN CORPUSCULAR VOLUME 95.1 fL (81.0-99.0); MEAN PLATELET VOLUME 10.5 fL (7.9-10.8); MONOCYTES # (AUTO) 0.9 10^3/uL (0.0-1.0); MONOCYTES % (AUTO) 8.8 %; NEUTROPHILS # (AUTO) 7.9 10^3/uL (1.5-6.6); NEUTROPHILS % (AUTO) 79.9 %; PLT - PLATELET COUNT 232 10^3/uL (130-450); RED BLOOD COUNT 3.44 10^6/uL (4.20-5.40); RED CELL DISTRIBUTION WIDTH 12.9 % (12.0-15.0); WHITE BLOOD COUNT 9.9 x10^3/uL (4.8-10.8)
[2021-04-26 06:51] LABS: CALCIUM 8.5 mg/dL (8.5-10.3); CREATININE 0.5 mg/dL (0.4-1.0); POTASSIUM 4.7 mmol/L (3.5-5.0)
[2021-04-26] MEDS: INSULIN ASPART 300 UNIT/3 ML PEN SUBQ SCH ×4 (08:05→20:36)
[2021-04-26] MEDS: PRENATAL VITAMIN TABLET PO SCH (08:06)
[2021-04-26] MEDS: INSULIN GLARGINE 300 UNIT/3 ML PEN SUBQ SCH (08:06)
[2021-04-26] MEDS: ONDANSETRON ODT 4 MG TABLET TL PRN (10:37)
[2021-04-26] MEDS: DOCUSATE SODIUM 100 MG CAPSULE PO SCH ×2 (10:47→20:41)
[2021-04-26] MEDS: ENOXAPARIN 40 MG/0.4 ML SYRINGE SUBQ SCH (10:48)
[2021-04-26] MEDS: metroNIDAZOLE 250 MG TABLET PO SCH ×2 (12:24→19:27)
[2021-04-26] MEDS: THIAMINE 100 MG TABLET PO SCH (12:24)
[2021-04-26] MEDS: diltiaZEM CD 240 MG CAPSULE PO SCH (12:24)
--- NOTE | 2021-04-26 16:42 | PROVIDER PROGRESS NOTE ---
Assessment/Plan - Problem List (1) Metabolic encephalopathy Assessment/Plan: Etiology: Likely Multifactorial. Secondary to worsening dementia, acute decompensation from current illness, ?infection, electrolyte imbalance, dehydration and/or medication Improved/resolved. Patient is alert and oriented x4 and is able to provide an accurate history regarding her recent surgery. Her electrolytes have been corrected and her renal function is normal. She is tolerating oral intake well. We will discontinue IV hydration. WBC this morning was 10.9. Continue empiric antibiotics with Flagyl and Levaquin (2) Leukocytosis Qualifiers: Leukocytosis type: leukemoid reaction Qualified Code(s): D72.823 - Leukemoid reaction Assessment/Plan: Patient's white blood cell today is 9.9. She is on Levaquin and Flagyl. She does not have any abdominal pain, nausea or vomiting. She is afebrile and tolerated a po diet well. CT of the abdomen/pelvis done 04/24/2021 had raised concern for possible biloma, developing abscess or seroma. Interventional radiology recommended a HIDA scan. General surgery suggested an ERCP. Patient was accepted to [facility] on 04/24/21 pending bed availability However given improvement in her mentation, white blood cell count, absence of abdominal pain, fever and tolerating oral intake well We will hold off on transfer and continue empiric antibiotics. MRCP has been ordered for 04/27/2021 to reassess findings of the CT of the abdomen pelvis done on 04/24/2021 We will plan on switching patient to oral antibiotics for 1 week and anticipate discharge to [facility] in 2 to 3 days. (3) CHERISE (acute kidney injury) Assessment/Plan: Resolved. Patient's creatinine today is 0.5 with estimated GFR of 119 IV fluids was discontinued today because she is tolerating p.o. intake well. (4) Dementia Qualifiers: Dementia type: associated with other underlying disease Dementia behavioral disturbance: without behavioral disturbance Qualified Code(s): F02.80 - Dementia in other diseases classified elsewhere without behavioral disturbance (5) Falls frequently Assessment/Plan: This may be secondary to Diabetic neuropathy and/or medication. She also has spinal stenosis which could be contributing. PT/OT to evaluate and treat. Occupational Therapy for cognitive eval. She will be going to [facility] upon discharge. Anticipate discharge on 04/27/21. (6) KIRAN (obstructive sleep apnea) Assessment/Plan: Noted on exam at time of admission. Patient was not hypoxic. Does not use a CPAP mask. (7) Type II diabetes mellitus with complication, uncontrolled Assessment/Plan: Hemoglobin A1c was 6.7. Lantus 5 units subcu every morning. Sliding scale insulin. Accu-Cheks before every meal and at bedtime. - Current Meds Current Meds: Current Medications Generic Name Dose Route Start Last Admin Trade Name Freq PRN Reason Stop Dose Admin Diltiazem HCl 240 mg 04/25/21 09:00 04/26/21 12:24 Diltiazem Cd 240 Mg Capsule PO 240 mg DAILY CARLOS Administration Docusate Sodium 100 mg 04/25/21 09:00 04/26/21 10:47 Docusate Sodium 100 Mg Capsule PO Not Given BID CARLOS Enoxaparin Sodium 40 mg 04/26/21 09:00 04/26/21 10:48 Enoxaparin 40 Mg/0.4 Ml Syringe SUBQ 40 mg DAILY CARLOS Administration Insulin Aspart 1 - 5 unit 04/24/21 08:00 04/26/21 12:25 Insulin Aspart 300 Unit/3 Ml Pen SUBQ 1 unit 0800,1200,1700,2100 CARLOS Administration Protocol Insulin Glargine 5 unit 04/24/21 08:00 04/26/21 08:06 Insulin Glargine 300 Unit/3 Ml Pen SUBQ 5 unit QDBREAKFAST CARLOS Administration Metronidazole 500 mg 04/26/21 11:00 04/26/21 12:24 Metronidazole 250 Mg Tablet PO 500 mg Q8H CARLOS Administration Ondansetron HCl 4 mg 04/24/21 03:54 04/26/21 10:37 Ondansetron Odt 4 Mg Tablet TL 4 mg Q6HR PRN Administration Nausea / Vomiting Oxycodone HCl 5 mg 04/24/21 03:54 04/25/21 15:50 Oxycodone 5 Mg Tablet PO 5 mg Q4HR PRN Administration Pain 5 to 7 Potassium Chloride 40 meq 04/24/21 06:00 04/26/21 13:38 Potassium Chloride 20 Meq Tablet PO 04/28/21 05:59 40 meq TID CARLOS Administration Pravastatin Sodium 40 mg 04/25/21 21:00 04/25/21 21:15 Pravastatin 40 Mg Tablet PO 40 mg QPM CARLOS Administration Multivit/Folic Acid/Iron 1 tab 04/24/21 08:00 04/26/21 08:06 Vitamin Tablet PO 1 tab DAILYWM CARLOS Administration Sodium Chloride 10 ml 04/24/21 03:54 04/24/21 05:17 Sodium Chloride Flush 0.9% 10 Ml Syringe IVP 10 ml PRN PRN Administration NEEDED PER PROVIDER ORDERS Sodium Chloride 10 ml 04/24/21 09:00 04/26/21 12:24 Sodium Chloride Flush 0.9% 10 Ml Syringe IVP 10 ml 0100,0900,1700 CARLOS Administration Thiamine HCl 100 mg 04/24/21 09:00 04/26/21 12:24 Thiamine 100 Mg Tablet PO 100 mg DAILY CARLOS Administration - Lab Result Fish Bone Diagrams: 04/26/21 06:31 04/26/21 06:31 - Additional Planning My Orders: My Active Orders 04/25/21 21:00 Pravastatin [Pravachol] 40 mg PO QPM 04/26/21 11:00 metroNIDAZOLE [Flagyl] 500 mg PO Q8H 04/27/21 09:00 MRCP W/WO [MRI] Routine 04/27/21 11:00 levoFLOXacin [Levaquin] 750 mg PO DAILY Subjective - Subjective Patient Reports: Other (She continues to feel well today. She reported slight nausea this morning. She denied any other complaints. Her mentation is fully intact.) Objective Vital Signs: Vital Signs - 24 hr 04/26/21 04/26/21 04/26/21 00:00 08:06 15:34 Temperature 36.6 C 36.6 C 36.6 C Heart Rate [ 91 94 89 Brachial] Heart Rate [ 20 L Radial] Respiratory 20 93 H 15 Rate Blood Pressure 144/70 H 150/74 H 144/69 H [Right Brachial artery] O2 Saturation 93 96 Oxygen O2 Source Room air I&O (Last 24 Hrs): Intake and Output Totals x24h 04/24/21 04/25/21 04/26/21 23:59 23:59 23:59 Intake Total 4527.000 4140.830 760 Output Total 2049 1950 2625 Balance 2477.000 2190.830 -1865 Comments/Notes: General: Alert, Oriented x3, Cooperative, No acute distress HEENT: Atraumatic, PERRLA, EOMI Neck: Supple, No JVD Neuro: Alert, Non Focal, Oriented Times 3 Cardiovascular: Regular rate Respiratory: Chest non-tender, No respiratory distress, Breath sounds nml Abdomen: Normal bowel sounds, Soft, No tenderness Extremities: No clubbing, No cyanosis, No edema, No tenderness/swelling Skin: No rashes, No breakdown, No significant lesion - Results Results: Laboratory Results WBC 9.9 x10^3/uL (4.8-10.8) 04/26/21 06:31 Corrected WBC Cancelled 04/24/21 01:02 RBC 3.44 10^6/uL (4.20-5.40) L 04/26/21 06:31 Hgb 10.9 g/dL (12.0-16.0) L 04/26/21 06:31 Hct 32.7 % (37.0-47.0) L 04/26/21 06:31 MCV 95.1 fL (81.0-99.0) 04/26/21 06:31 MCH 31.7 pg (27.0-31.0) H 04/26/21 06:31 MCHC 33.3 g/dL (32.0-36.0) 04/26/21 06:31 RDW 12.9 % (12.0-15.0) 04/26/21 06:31 Plt Count 232 10^3/uL (130-450) 04/26/21 06:31 MPV 10.5 fL (7.9-10.8) 04/26/21 06:31 Neut # (Auto) 7.9 10^3/uL (1.5-6.6) H 04/26/21 06:31 Lymph # (Auto) 1.0 10^3/uL (1.5-3.5) L 04/26/21 06:31 [place] # (Auto) 0.9 10^3/uL (0.0-1.0) 04/26/21 06:31 Eos # (Auto) 0.1 10^3/uL (0.0-0.7) 04/26/21 06:31 Baso # (Auto) 0.0 10^3/uL (0.0-0.1) 04/26/21 06:31 Absolute Nucleated RBC 0.00 x10^3/uL 04/26/21 06:31 Total Counted Cancelled 10/01/21 01:02 Band Neuts % (Manual) Cancelled 04/24/21 01:02 Reactive Lymphs % (Man) Cancelled 04/24/21 01:02 Abnorm Lymph % (Manual) Cancelled 04/24/21 01:02 Metamyelocytes % Cancelled 04/24/21 01:02 Myelocytes % Cancelled 04/24/21 01:02 Promyelocytes % Cancelled 04/24/21 01:02 Blast Cells % Cancelled 04/24/21 01:02 Plasma Cell % (Manual) Cancelled 04/24/21 01:02 Other Cells % Cancelled 04/24/21 01:02 Nucleated RBC % 0.0 /100WBC 04/26/21 06:31 Neutrophils # (Manual) Cancelled 04/24/21 01:02 Lymphocytes # (Manual) Cancelled 04/24/21 01:02 Monocytes # (Manual) Cancelled 04/24/21 01:02 Eosinophils # (Manual) Cancelled 04/24/21 01:02 Basophils # (Manual) Cancelled 04/24/21 01:02 Nucleated RBCs Cancelled 04/24/21 01:02 Differential Comment Cancelled 04/24/21 01:02 Manual Slide Review Cancelled 04/24/21 01:02 WBC Morphology Cancelled 04/24/21 01:02 Platelet Estimate Cancelled 04/24/21 01:02 Platelet Morphology Cancelled 04/24/21 01:02 RBC Morph Micro Appear Cancelled 04/24/21 01:02 Sodium 136 mmol/L (135-145) 04/26/21 06:31 Potassium 4.7 mmol/L (3.5-5.0) 04/26/21 06:31 Chloride 101 mmol/L (101-111) 04/26/21 06:31 Carbon Dioxide 26 mmol/L (21-32) 04/26/21 06:31 Anion Gap 9.0 (6-13) 04/26/21 06:31 BUN 7 mg/dL (6-20) 04/26/21 06:31 Creatinine 0.5 mg/dL (0.4-1.0) 04/26/21 06:31 Estimated GFR (MDRD) 119 (>89) 04/26/21 06:31 Glucose 213 mg/dL (70-100) H 04/26/21 06:31 Estimat Average Glucose 146 mg/dL (70-100) H 04/24/21 12:45 Hemoglobin A1c % 6.7 % (4.27-6.07) H 04/24/21 12:45 Lactic Acid 1.9 mmol/L (0.5-2.2) 04/24/21 07:36 Calcium 8.5 mg/dL (8.5-10.3) 04/26/21 06:31 Total Bilirubin 1.0 mg/dL (0.2-1.0) 04/24/21 01:02 AST 34 IU/L (10-42) 04/24/21 01:02 ALT 24 IU/L (10-60) 04/24/21 01:02 Alkaline Phosphatase 83 IU/L (42-121) 04/24/21 01:02 Ammonia 16.1 umol/L (7-35) 04/25/21 06:48 Troponin I High Sens 21.7 ng/L (2.3-14.8) H* 04/24/21 01:02 Total Protein 5.9 g/dL (6.7-8.2) L 04/24/21 01:02 Albumin 3.1 g/dL (3.2-5.5) L 04/24/21 01:02 Globulin 2.8 g/dL (2.1-4.2) 04/24/21 01:02 Albumin/Globulin Ratio 1.1 (1.0-2.2) 04/24/21 01:02 Lipase 19 U/L (22-51) L 04/24/21 01:02 Urine Color YELLOW 04/24/21 01:15 Urine Clarity CLEAR (CLEAR) 04/24/21 01:15 Urine pH 6.0 PH (5.0-7.5) 04/24/21 01:15 Ur Specific [place] 1.020 (1.002-1.030) 04/24/21 01:15 Urine Protein NEGATIVE mg/dL (NEGATIVE) 04/24/21 01:15 Urine Glucose (UA) 100 mg/dL (NEGATIVE) H 04/24/21 01:15 Urine Ketones 15 mg/dL (NEGATIVE) H 04/24/21 01:15 Urine Occult Blood NEGATIVE (NEGATIVE) 04/24/21 01:15 Urine Nitrite NEGATIVE (NEGATIVE) 04/24/21 01:15 Urine Bilirubin NEGATIVE (NEGATIVE) 04/24/21 01:15 Urine Urobilinogen 0.2 (NORMAL) E.U./dL (NORMAL) 04/24/21 01:15 Ur Leukocyte Esterase NEGATIVE (NEGATIVE) 04/24/21 01:15 Urine RBC 0-5 /HPF (0-5) 04/24/21 01:15 Urine WBC 0-3 /HPF (0-5) 04/24/21 01:15 Ur Squamous Epith Cells RARE Squamous (<= Few) 04/24/21 01:15 Urine Bacteria Few /HPF (None Seen) 04/24/21 01:15 Urine Culture Comments NOT INDICATED 04/24/21 01:15 Urine Sodium 70.0 mmol/L 04/24/21 01:15 Nasal Adenovirus (PCR) NOT DETECTED 04/24/21 01:48 Nasal B. parapertussis DNA (PCR) NOT DETECTED 04/24/21 01:48 Nasal Coronavir 229E PCR NOT DETECTED 04/24/21 01:48 Nasal Coronavir HKU1 PCR NOT DETECTED 04/24/21 01:48 Nasal Coronavir NL63 PCR NOT DETECTED 04/24/21 01:48 Nasal Coronavir OC43 PCR NOT DETECTED 04/24/21 01:48 Nasal Enterovir/Rhinovir PCR NOT DETECTED 04/24/21 01:48 Nasal Influenza B PCR NOT DETECTED 04/24/21 01:48 Nasal Influenza A PCR NOT DETECTED 04/24/21 01:48 Nasal Parainfluen 1 PCR NOT DETECTED 04/24/21 01:48 Nasal Parainfluen 2 PCR NOT DETECTED 04/24/21 01:48 Nasal Parainfluen 3 PCR NOT DETECTED 04/24/21 01:48 Nasal Parainfluen 4 PCR NOT DETECTED 04/24/21 01:48 Nasal RSV (PCR) NOT DETECTED 04/24/21 01:48 Nasal B.pertussis DNA PCR NOT DETECTED 04/24/21 01:48 Nasal C.pneumoniae (PCR) NOT DETECTED 04/24/21 01:48 [place] Human Metapneumo PCR NOT DETECTED 04/24/21 01:48 Nasal M.pneumoniae (PCR) NOT DETECTED 04/24/21 01:48 Nasal SARS-CoV-2 (PCR) NOT DETECTED 04/24/21 01:48 Slides for Path Review Cancelled 04/24/21 01:02 ABX Reporting Has patient been on IV antibiotics over the past 48 hours?: Yes
[2021-04-26] MEDS: PRAVASTATIN 40 MG TABLET PO SCH (20:37)
[2021-04-27] MEDS: SODIUM CHLORIDE FLUSH 0.9% 10 ML SYRINGE IVP SCH ×3 (03:26→17:21)
[2021-04-27] MEDS: metroNIDAZOLE 250 MG TABLET PO SCH ×3 (03:26→18:26)
[2021-04-27] MEDS: POTASSIUM CHLORIDE 20 MEQ TABLET PO SCH ×4 (06:00→21:11)
[2021-04-27 06:09] LABS: BASOPHILS % (AUTO) 0.3 %; EOSINOPHILS # (AUTO) 0.1 10^3/uL (0.0-0.7); HCT - HEMATOCRIT 33.3 % (37.0-47.0); HGB - HEMOGLOBIN 10.9 g/dL (12.0-16.0); LYMPHOCYTES # (AUTO) 1.3 10^3/uL (1.5-3.5); LYMPHOCYTES % (AUTO) 12.7 %; MEAN CORPUSCULAR HEMOGLOBIN 31.9 pg (27.0-31.0); MEAN CORPUSCULAR HGB CONC 32.7 g/dL (32.0-36.0); MEAN CORPUSCULAR VOLUME 97.4 fL (81.0-99.0); MEAN PLATELET VOLUME 10.3 fL (7.9-10.8); MONOCYTES # (AUTO) 1.1 10^3/uL (0.0-1.0); MONOCYTES % (AUTO) 10.6 %; NEUTROPHILS # (AUTO) 7.4 10^3/uL (1.5-6.6); NEUTROPHILS % (AUTO) 74.6 %; PLT - PLATELET COUNT 240 10^3/uL (130-450); RED BLOOD COUNT 3.42 10^6/uL (4.20-5.40); RED CELL DISTRIBUTION WIDTH 12.7 % (12.0-15.0); WHITE BLOOD COUNT 9.9 x10^3/uL (4.8-10.8)
[2021-04-27 06:17] LABS: CALCIUM 8.4 mg/dL (8.5-10.3); CREATININE 0.5 mg/dL (0.4-1.0); POTASSIUM 4.5 mmol/L (3.5-5.0)
[2021-04-27] MEDS: ENOXAPARIN 40 MG/0.4 ML SYRINGE SUBQ SCH (08:32)
[2021-04-27] MEDS: diltiaZEM CD 240 MG CAPSULE PO SCH (08:32)
[2021-04-27] MEDS: PRENATAL VITAMIN TABLET PO SCH (08:32)
[2021-04-27] MEDS: DOCUSATE SODIUM 100 MG CAPSULE PO SCH ×2 (08:32→21:11)
[2021-04-27] MEDS: THIAMINE 100 MG TABLET PO SCH (08:32)
[2021-04-27] MEDS: INSULIN GLARGINE 300 UNIT/3 ML PEN SUBQ SCH (08:34)
[2021-04-27] MEDS: INSULIN ASPART 300 UNIT/3 ML PEN SUBQ SCH ×4 (08:34→21:12)
[2021-04-27] MEDS ORDERED: GADOBUTROL 15 MMOL/15 ML VIAL ONE (11:16)
--- NOTE | 2021-04-27 12:31 | PROVIDER PROGRESS NOTE ---
Assessment/Plan - Problem List (1) Acute metabolic encephalopathy Assessment/Plan: Present on admission Likely secondary to infection, with underlying dementia Essentially acute on chronic encephalopathy with dementia and infection Patient appears to be closer to baseline today Alert and oriented x3 Tolerating p.o. well Labs improving (2) Abnormal abdominal CT scan Assessment/Plan: Patient was initially presenting with encephalopathy, abdominal pain and leukocy tosis underwent a diagnostic abdominal CT scan. CT scan is nonspecific but does show what could be a biloma This has been discussed with surgery,Who recommends ERCP Patient was accepted to [facility] on 04/24/2021 pending bed availability We will follow up results of MRCP to determine if patient will continue to need transfer versus completing antibiotic and discharge home Meanwhile continue Levaquin and Flagyl (3) Dementia Qualifiers: Dementia type: associated with other underlying disease Dementia behavioral disturbance: without behavioral disturbance Qualified Code(s): F02.80 - Dementia in other diseases classified elsewhere without behavioral disturbance Assessment/Plan: Stable, patient appears to be at baseline Disposition is expected to be [facility] assisted living facility after discharge (4) Type II diabetes mellitus with complication, uncontrolled Assessment/Plan: Blood sugars reasonably well controlled Continue diabetic diet and insulin sliding scale - Current Meds Current Meds: Current Medications Generic Name Dose Route Start Last Admin Trade Name Freq PRN Reason Stop Dose Admin Diltiazem HCl 240 mg 04/25/21 09:00 04/27/21 08:32 Diltiazem Cd 240 Mg Capsule PO 240 mg DAILY CARLOS Administration Docusate Sodium 100 mg 04/25/21 09:00 04/27/21 08:32 Docusate Sodium 100 Mg Capsule PO 100 mg BID CARLOS Administration Enoxaparin Sodium 40 mg 04/26/21 09:00 04/27/21 08:32 Enoxaparin 40 Mg/0.4 Ml Syringe SUBQ 40 mg DAILY CARLOS Administration Insulin Aspart 1 - 5 unit 04/24/21 08:00 04/27/21 11:30 Insulin Aspart 300 Unit/3 Ml Pen SUBQ Not Given 0800,1200,1700,2100 [facility] Protocol Insulin Glargine 5 unit 04/24/21 08:00 04/27/21 08:34 Insulin Glargine 300 Unit/3 Ml Pen SUBQ 5 unit QDBREAKFAST CARLOS Administration Metronidazole 500 mg 04/26/21 11:00 04/27/21 03:26 Metronidazole 250 Mg Tablet PO 500 mg Q8H CARLOS Administration Ondansetron HCl 4 mg 04/24/21 03:54 04/26/21 10:37 Ondansetron Odt 4 Mg Tablet TL 4 mg Q6HR PRN Administration Nausea / Vomiting Oxycodone HCl 5 mg 04/24/21 03:54 04/25/21 15:50 Oxycodone 5 Mg Tablet PO 5 mg Q4HR PRN Administration Pain 5 to 7 Potassium Chloride 40 meq 04/24/21 06:00 04/27/21 06:08 Potassium Chloride 20 Meq Tablet PO 04/28/21 05:59 Not Given TID CARLOS Pravastatin Sodium 40 mg 04/25/21 21:00 04/26/21 20:37 Pravastatin 40 Mg Tablet PO 40 mg QPM CARLOS Administration Multivit/Folic Acid/Iron 1 tab 04/24/21 08:00 04/27/21 08:32 Vitamin Tablet PO 1 tab DAILYWM CARLOS Administration Sodium Chloride 10 ml 04/24/21 03:54 04/24/21 05:17 Sodium Chloride Flush 0.9% 10 Ml Syringe IVP 10 ml PRN PRN Administration NEEDED PER PROVIDER ORDERS Sodium Chloride 10 ml 04/24/21 09:00 04/27/21 08:33 Sodium Chloride Flush 0.9% 10 Ml Syringe IVP 10 ml 0100,0900,1700 CARLOS Administration Thiamine HCl 100 mg 04/24/21 09:00 04/27/21 08:32 Thiamine 100 Mg Tablet PO 100 mg DAILY CARLOS Administration - Lab Result Lab results reviewed: Yes Fish Bone Diagrams: 04/27/21 05:49 04/27/21 05:49 - Diagnostic Imaging Results Diagnostic Imaging Results: Final report reviewed Subjective - Subjective Patient Reports: Feeling Better Objective Vital Signs: Vital Signs - 24 hr 04/26/21 04/26/21 04/27/21 15:34 23:24 07:03 Temperature 36.6 C 36.9 C 36.8 C Heart Rate [ 89 80 83 Brachial] Respiratory 15 18 16 Rate Blood Pressure 144/69 H 137/62 H 137/58 H [Right Brachial artery] O2 Saturation 96 94 97 04/27/21 04/27/21 08:30 11:25 Temperature 36.6 C Heart Rate [ 81 75 Brachial] Respiratory 19 Rate Blood Pressure 147/73 H 136/66 H [Right Brachial artery] O2 Saturation 97 Oxygen O2 Source Room air I&O (Last 24 Hrs): Intake and Output Totals x24h 04/25/21 04/26/21 04/27/21 23:59 23:59 23:59 Intake Total 4140.830 1160 60 Output Total 1950 2625 1650 Balance 2190.830 -1465 -1590 General: Alert, Oriented x3 HEENT: Atraumatic Neuro: Alert Cardiovascular: Regular rate, Normal S1, Normal S2 Respiratory: Chest non-tender, No respiratory distress, Breath sounds nml Abdomen: Normal bowel sounds Skin: No rashes - Results Results: Laboratory Results WBC 9.9 x10^3/uL (4.8-10.8) 04/27/21 05:49 Corrected WBC Cancelled 04/24/21 01:02 RBC 3.42 10^6/uL (4.20-5.40) L 04/27/21 05:49 Hgb 10.9 g/dL (12.0-16.0) L 04/27/21 05:49 Hct 33.3 % (37.0-47.0) L 04/27/21 05:49 MCV 97.4 fL (81.0-99.0) 04/27/21 05:49 MCH 31.9 pg (27.0-31.0) H 04/27/21 05:49 MCHC 32.7 g/dL (32.0-36.0) 04/27/21 05:49 RDW 12.7 % (12.0-15.0) 04/27/21 05:49 Plt Count 240 10^3/uL (130-450) 04/27/21 05:49 MPV 10.3 fL (7.9-10.8) 04/27/21 05:49 Neut # (Auto) 7.4 10^3/uL (1.5-6.6) H 04/27/21 05:49 Lymph # (Auto) 1.3 10^3/uL (1.5-3.5) L 04/27/21 05:49 Norman # (Auto) 1.1 10^3/uL (0.0-1.0) H 04/27/21 05:49 Eos # (Auto) 0.1 10^3/uL (0.0-0.7) 04/27/21 05:49 Baso # (Auto) 0.0 10^3/uL (0.0-0.1) 04/27/21 05:49 Absolute Nucleated RBC 0.00 x10^3/uL 04/27/21 05:49 Total Counted Cancelled 04/24/21 01:02 Band Neuts % (Manual) Cancelled 04/24/21 01:02 Reactive Lymphs % (Man) Cancelled 04/24/21 01:02 Abnorm Lymph % (Manual) Cancelled 04/24/21 01:02 Metamyelocytes % Cancelled 04/24/21 01:02 Myelocytes % Cancelled 04/24/21 01:02 Promyelocytes % Cancelled 04/24/21 01:02 Blast Cells % Cancelled 04/24/21 01:02 Plasma Cell % (Manual) Cancelled 04/24/21 01:02 Other Cells % Cancelled 04/24/21 01:02 Nucleated RBC % 0.0 /100WBC 04/27/21 05:49 Neutrophils # (Manual) Cancelled 04/24/21 01:02 Lymphocytes # (Manual) Cancelled 04/24/21 01:02 Monocytes # (Manual) Cancelled 04/24/21 01:02 Eosinophils # (Manual) Cancelled 04/24/21 01:02 Basophils # (Manual) Cancelled 04/24/21 01:02 Nucleated RBCs Cancelled 04/24/21 01:02 Differential Comment Cancelled 04/24/21 01:02 Manual Slide Review Cancelled 04/24/21 01:02 WBC Morphology Cancelled 04/24/21 01:02 Platelet Estimate Cancelled 04/24/21 01:02 Platelet Morphology Cancelled 04/24/21 01:02 RBC Morph Micro Appear Cancelled 04/24/21 01:02 Sodium 133 mmol/L (135-145) L 04/27/21 05:49 Potassium 4.5 mmol/L (3.5-5.0) 04/27/21 05:49 Chloride 99 mmol/L (101-111) L 04/27/21 05:49 Carbon Dioxide 25 mmol/L (21-32) 04/27/21 05:49 Anion Gap 9.0 (6-13) 04/27/21 05:49 BUN 8 mg/dL (6-20) 04/27/21 05:49 Creatinine 0.5 mg/dL (0.4-1.0) 04/27/21 05:49 Estimated GFR (MDRD) 119 (>89) 04/27/21 05:49 Glucose 185 mg/dL (70-100) H 04/27/21 05:49 Estimat Average Glucose 146 mg/dL (70-100) H 04/24/21 12:45 Hemoglobin A1c % 6.7 % (4.27-6.07) H 04/24/21 12:45 Lactic Acid 1.9 mmol/L (0.5-2.2) 04/24/21 07:36 Calcium 8.4 mg/dL (8.5-10.3) L 04/27/21 05:49 Total Bilirubin 1.0 mg/dL (0.2-1.0) 04/24/21 01:02 AST 34 IU/L (10-42) 04/24/21 01:02 ALT 24 IU/L (10-60) 04/24/21 01:02 Alkaline Phosphatase 83 IU/L (42-121) 04/24/21 01:02 Ammonia 16.1 umol/L (7-35) 04/25/21 06:48 Troponin I High Sens 21.7 ng/L (2.3-14.8) H* 04/24/21 01:02 Total Protein 5.9 g/dL (6.7-8.2) L 04/24/21 01:02 Albumin 3.1 g/dL (3.2-5.5) L 04/24/21 01:02 Globulin 2.8 g/dL (2.1-4.2) 04/24/21 01:02 Albumin/Globulin Ratio 1.1 (1.0-2.2) 04/24/21 01:02 Lipase 19 U/L (22-51) L 04/24/21 01:02 Urine Color YELLOW 04/24/21 01:15 Urine Clarity CLEAR (CLEAR) 04/24/21 01:15 Urine pH 6.0 PH (5.0-7.5) 04/24/21 01:15 Ur Specific Telferner 1.020 (1.002-1.030) 04/24/21 01:15 Urine Protein NEGATIVE mg/dL (NEGATIVE) 04/24/21 01:15 Urine Glucose (UA) 100 mg/dL (NEGATIVE) H 04/24/21 01:15 Urine Ketones 15 mg/dL (NEGATIVE) H 04/24/21 01:15 Urine Occult Blood NEGATIVE (NEGATIVE) 04/24/21 01:15 Urine Nitrite NEGATIVE (NEGATIVE) 04/24/21 01:15 Urine Bilirubin NEGATIVE (NEGATIVE) 04/24/21 01:15 Urine Urobilinogen 0.2 (NORMAL) E.U./dL (NORMAL) 04/24/21 01:15 Ur Leukocyte Esterase NEGATIVE (NEGATIVE) 04/24/21 01:15 Urine RBC 0-5 /HPF (0-5) 04/24/21 01:15 Urine WBC 0-3 /HPF (0-5) 04/24/21 01:15 Ur Squamous Epith Cells RARE Squamous (<= Few) 04/24/21 01:15 Urine Bacteria Few /HPF (None Seen) 04/24/21 01:15 Urine Culture Comments NOT INDICATED 04/24/21 01:15 Urine Sodium 70.0 mmol/L 04/24/21 01:15 Nasal Adenovirus (PCR) NOT DETECTED 04/24/21 01:48 Nasal B. parapertussis DNA (PCR) NOT DETECTED 04/24/21 01:48 Nasal Coronavir 229E PCR NOT DETECTED 04/24/21 01:48 Nasal Coronavir HKU1 PCR NOT DETECTED 04/24/21 01:48 Nasal Coronavir NL63 PCR NOT DETECTED 04/24/21 01:48 Nasal Coronavir OC43 PCR NOT DETECTED 04/24/21 01:48 Nasal Enterovir/Rhinovir PCR NOT DETECTED 04/24/21 01:48 Nasal Influenza B PCR NOT DETECTED 04/24/21 01:48 Nasal Influenza A PCR NOT DETECTED 04/24/21 01:48 Nasal Parainfluen 1 PCR NOT DETECTED 04/24/21 01:48 Nasal Parainfluen 2 PCR NOT DETECTED 04/24/21 01:48 Nasal Parainfluen 3 PCR NOT DETECTED 04/24/21 01:48 Nasal Parainfluen 4 PCR NOT DETECTED 04/24/21 01:48 Nasal RSV (PCR) NOT DETECTED 04/24/21 01:48 Nasal B.pertussis DNA PCR NOT DETECTED 04/24/21 01:48 Nasal C.pneumoniae (PCR) NOT DETECTED 04/24/21 01:48 Gregorio Human Metapneumo PCR NOT DETECTED 04/24/21 01:48 Nasal M.pneumoniae (PCR) NOT DETECTED 04/24/21 01:48 Nasal SARS-CoV-2 (PCR) NOT DETECTED 04/24/21 01:48 Slides for Path Review Cancelled 04/24/21 01:02 ABX Reporting Has patient been on IV antibiotics over the past 48 hours?: Yes Current Medications - Current Medications Current Medications: Current Medications Generic Name Dose Route Start Last Admin Trade Name Freq PRN Reason Stop Dose Admin Diltiazem HCl 240 mg 04/25/21 09:00 04/27/21 08:32 Diltiazem Cd 240 Mg Capsule PO 240 mg DAILY CARLOS Administration Docusate Sodium 100 mg 04/25/21 09:00 04/27/21 08:32 Docusate Sodium 100 Mg Capsule PO 100 mg BID CARLOS Administration Enoxaparin Sodium 40 mg 04/26/21 09:00 04/27/21 08:32 Enoxaparin 40 Mg/0.4 Ml Syringe SUBQ 40 mg DAILY CARLOS Administration Insulin Aspart 1 - 5 unit 04/24/21 08:00 04/27/21 11:30 Insulin Aspart 300 Unit/3 Ml Pen SUBQ Not Given 0800,1200,1700,2100 [facility] Protocol Insulin Glargine 5 unit 04/24/21 08:00 04/27/21 08:34 Insulin Glargine 300 Unit/3 Ml Pen SUBQ 5 unit QDBREAKFAST CARLOS Administration Levofloxacin 750 mg 04/27/21 11:00 04/27/21 12:32 Levofloxacin 250 Mg Tablet PO 750 mg DAILY CARLOS Administration Metronidazole 500 mg 04/26/21 11:00 04/27/21 12:32 Metronidazole 250 Mg Tablet PO 500 mg Q8H CARLOS Administration Ondansetron HCl 4 mg 04/24/21 03:54 04/26/21 10:37 Ondansetron Odt 4 Mg Tablet TL 4 mg Q6HR PRN Administration Nausea / Vomiting Oxycodone HCl 5 mg 04/24/21 03:54 04/25/21 15:50 Oxycodone 5 Mg Tablet PO 5 mg Q4HR PRN Administration Pain 5 to 7 Potassium Chloride 40 meq 04/24/21 06:00 04/27/21 06:08 Potassium Chloride 20 Meq Tablet PO 04/28/21 05:59 Not Given TID CARLOS Pravastatin Sodium 40 mg 04/25/21 21:00 04/26/21 20:37 Pravastatin 40 Mg Tablet PO 40 mg QPM CARLOS Administration Multivit/Folic Acid/Iron 1 tab 04/24/21 08:00 04/27/21 08:32 Vitamin Tablet PO 1 tab DAILYWM CARLOS Administration Sodium Chloride 10 ml 04/24/21 03:54 04/24/21 05:17 Sodium Chloride Flush 0.9% 10 Ml Syringe IVP 10 ml PRN PRN Administration NEEDED PER PROVIDER ORDERS Sodium Chloride 10 ml 04/24/21 09:00 04/27/21 08:33 Sodium Chloride Flush 0.9% 10 Ml Syringe IVP 10 ml 0100,0900,1700 CARLOS Administration Thiamine HCl 100 mg 04/24/21 09:00 04/27/21 08:32 Thiamine 100 Mg Tablet PO 100 mg DAILY CARLOS Administration
[2021-04-27] MEDS: levoFLOXacin 250 MG TABLET PO SCH (12:32)
--- NOTE | 2021-04-27 14:23 | MRI Report ---
PROCEDURE: MRCP W/WO INDICATIONS: ?bile leak, s/p recent cholecystectomy TECHNIQUE: Coronal ultra fast SE, axial 2D spoiled GE in- and [id number]; axial breath-hold T2 FSE with fat sa turation from the hepatic dome to the iliac crests. Oblique coronal thin-slice and radial thick slab ultra fast SE through the biliary system. Dynamic axial ultra fast GE during administration of cont rast. Post-contrast coronal axial ultra fast GE or 2D spoiled GE with fat saturation from the hepati c dome to the iliac crests. Optional diffusion weighted imaging and ADC may be performed. COMPARISON: CT abdomen without contrast 04/24/2021, CT abdomen and pelvis with contrast 04/03/2021. FINDINGS: Image quality: Fair. Pancreas and biliary system: Small fluid collection near the gallbladder fossa measuring 3.9 x 3.1 x 2.9 cm, estimated volume of 18 cc. The collection is mildly heterogeneous with mild peripheral enhan cement. There are a few foci of signal dropout consistent with pneumoperitoneum which is also seen on recent CT. There is also artifact related to the clinic slightly clips. The gallbladder is absent. N o biliary ductal dilatation. Solid organs: Liver is normal in size. Hepatic steatosis. Spleen is normal in size and enhancement. Small T2 hyperintense focus in the spleen. This likely represents a cyst or hemangioma. No adrenal no dules. Kidneys are normal in size and enhancement, without hydronephrosis. Small simple renal cysts. Nodes and vessels: No retroperitoneal or mesenteric adenopathy by size criteria. Small pericardiac l ymph nodes. Aorta and inferior vena cava are normal in size. Bowel and peritoneum: Unenhanced bowel loops are normal in caliber throughout. Tiny duodenal diverti culum. No free fluid. Lung bases: No basal pleural effusions. Mild signal at the right lung base. Trace right pleural flui d. Heart size is normal. Bones and soft tissues: No ventral hernias. Bone marrow is normal in overall signal. Scoliosis. IMPRESSION: Image quality is somewhat degraded by artifact. 1. Small fluid collection with peripheral enhancement at the gallbladder fossa measuring 3.9 cm and 1 8 cc. This is suspicious for bile leak and/or abscess. Overall this is similar to CT 04/24/2021. 2. No biliary or pancreatic ductal dilatation. No hepatic abscess demonstrated. 3. A few foci of signal dropout likely due to trace persistent pneumoperitoneum. 4. Trace right pleural effusion. Suspect compressive atelectasis. Results were communicated to hospitalist Michael hsu at 04/27/2021 2:20 PM PDT. Reviewed by: Meliton Smith MD on 04/27/2021 2:22 PM PDT Approved by: Meliton Smith MD on 04/27/2021 2:22 PM PDT Station ID: [id number]
[2021-04-27] MEDS ORDERED: GADOBUTROL 15 MMOL/15 ML VIAL IVP ONE (14:53)
--- NOTE | 2021-04-27 15:26 | CONSULTATION NOTE ---
Referring Provider Consult Date: 04/27/21 History of Present Illness - Admitted From Admitted From:: ED - History Obtained From Records Reviewed: yes History obtained from: MD Exam Limitations: pt not examined - History of Present Illness HPI Comment/Other: Lap pham couple weeks ago. ? [facility]. Called about MRCP findings. Bile leak present. History - Past Medical History Cardiovascular: reports: Hypertension, High cholesterol Respiratory: reports: Sleep apnea Neuro: reports: Dementia Endocrine/Autoimmune: reports: Type 2 diabetes GI: reports: None WAXER: reports: Breast cancer : reports: Incontinence Psych: reports: Other Musculoskeletal: reports: Chronic back pain Derm: reports: None MRSA Hx?: No Other Past Medical History: baseline dementia - Past Surgical History General: reports: Cholecystectomy Ortho: reports: Other /WAXER: reports: Mastectomy - Family & Social History Family History Comment/Other: Dad at age 69 of heart attack. Mom at age 88 of complications of dementia and had DM. Of 7 siblings one is . Her son is unable to remember what that sibling of. As far as he knows his uncles and aunts are all healthy. She has 3 children. They are all healthy. No high blood pressure, diabetes. 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 Smoked many many decades ago. Alcohol abuse is described by the son as 2 large glasses of wine a day on a daily basis. Benzodiazepine abuse. No history of recreational substance abuse. She is . As she became older and a little lonely, she had to decide which of her 3 children she wanted to go live nearby. She decided to come to would be on because it so beautiful here and she could be near her grandchildren. - Substance History Use: Uses substance without health or social issues: Alcohol Use Issues: Mood Disorder, Sleep Disorder - POLST Patient has POLST: No POLST Status: Full Code Meds/Allgy - Home Medications Home Medications: Ambulatory Orders Medication Instructions Recorded Confirmed Pravastatin [Pravachol] 40 mg PO DAILY 12/13/15 04/24/21 diltiaZEM CD [Cardizem Cd] 240 mg PO DAILY 12/13/15 04/24/21 metFORMIN [Glucophage] 500 mg PO DAILY 12/13/15 04/24/21 LORazepam [Lorazepam] 2 mg PO QPM 09/26/19 04/24/21 Docusate Sodium 100Mg Capsule 100 mg PO BID 04/24/21 04/24/21 [Colace 100Mg Capsule] Meloxicam [Mobic] 7.5 mg PO BID 04/24/21 04/24/21 - Allergies Allergies/Adverse Reactions: Allergies Allergy/AdvReac Type Severity Reaction Status Date / Time acetaminophen [From Tylenol] Allergy Itching Verified 04/24/21 00:22 erythromycin base Allergy Anaphylaxis Verified 04/24/21 00:22 oxycodone Allergy Itching Verified 04/24/21 00:22 ibuprofen [From Motrin] AdvReac Mild Itching Verified 04/24/21 00:22 NSAIDS (Non-Steroidal AdvReac Itching Verified 04/24/21 00:22 Anti-Inflamma Exam - Vital Signs Vital Signs: Vital Signs x48h Temp Pulse Resp BP Pulse Ox 04/27/21 11:25 36.6 C 75 19 136/66 H 97 04/27/21 08:30 81 147/73 H Conclusion/Plan - Problem List (1) Bile leak, postoperative Conclusion/Plan: Recommend GI referral for ERCP and stent ie transfer to facility which can offer this higher level of care. Further surgery not recommended. - Lab Results Lab results reviewed: Yes Fish Bones: 04/27/21 05:49 04/27/21 05:49 - Diagnostic Imaging Results Diagnostic Imaging Results: positive: Final report reviewed, Read independently (Persistent bile leak which appears to be from the cystic duct stump. common bile duct and hepatic ducts appear intact.)
--- NOTE | 2021-04-27 17:45 | MISCELLANEOUS PROVIDER NOTE ---
Miscellaneous Provider Note - - Note: Given the diagnosis of a biloma,Plan is for ERCP which cannot be done at this facility. [facility] was unable to accept the patient today, but [facility] [place] was very helpful. I spoke with salvage winder and inspector on-call, Dr. Ángel Shane Who was kind enough to help facilitate us transferring Richa to [place] for this procedure. Tentatively, the plan is to transfer her for a arrival time at [facility] at 3 PM for a 5 PM procedure time. She is to be n.p.o. overnight until the procedure. Most likely, she will have to be an inpatient for the procedure because it is an after 5 PM procedure, and it is as yet undetermined as to whether the patient will return to us later that evening, next day, or potentially discharge straight home. We will likely have more details tomorrow. Plan is to contact to the Nursing support line At [phone] first thing in the morning. The phone number for the GI group, office of Dr. Shane, is [phone] if there are any questions. Can choose the option to select numerical control nesting operator and ask for Magalis or Briana. I have updated the patient and she is agreeable.
[2021-04-27] MEDS: ZOLPIDEM 5 MG TABLET PO PRN (21:11)
[2021-04-27] MEDS: PRAVASTATIN 40 MG TABLET PO SCH (21:11)
[2021-04-28] MEDS: SODIUM CHLORIDE FLUSH 0.9% 10 ML SYRINGE IVP SCH ×4 (00:33→23:25)
[2021-04-28] MEDS: metroNIDAZOLE 250 MG TABLET PO SCH ×2 (02:55→21:12)
[2021-04-28 05:52] LABS: BASOPHILS % (AUTO) 0.4 %; EOSINOPHILS # (AUTO) 0.1 10^3/uL (0.0-0.7); EOSINOPHILS % (AUTO) 1.1 %; HCT - HEMATOCRIT 35.2 % (37.0-47.0); HGB - HEMOGLOBIN 11.8 g/dL (12.0-16.0); LYMPHOCYTES # (AUTO) 1.4 10^3/uL (1.5-3.5); MEAN CORPUSCULAR HEMOGLOBIN 31.8 pg (27.0-31.0); MEAN CORPUSCULAR HGB CONC 33.5 g/dL (32.0-36.0); MEAN CORPUSCULAR VOLUME 94.9 fL (81.0-99.0); MEAN PLATELET VOLUME 10.2 fL (7.9-10.8); MONOCYTES # (AUTO) 1.2 10^3/uL (0.0-1.0); MONOCYTES % (AUTO) 10.4 %; NEUTROPHILS # (AUTO) 8.2 10^3/uL (1.5-6.6); PLT - PLATELET COUNT 279 10^3/uL (130-450); RED BLOOD COUNT 3.71 10^6/uL (4.20-5.40); RED CELL DISTRIBUTION WIDTH 12.6 % (12.0-15.0); WHITE BLOOD COUNT 11.1 x10^3/uL (4.8-10.8)
[2021-04-28] MEDS: ENOXAPARIN 40 MG/0.4 ML SYRINGE SUBQ SCH (08:07)
[2021-04-28] MEDS: INSULIN ASPART 300 UNIT/3 ML PEN SUBQ SCH ×4 (08:16→20:21)
[2021-04-28] MEDS: INSULIN GLARGINE 300 UNIT/3 ML PEN SUBQ SCH (08:16)
[2021-04-28] MEDS: ONDANSETRON 4 MG/2 ML VIAL IVP PRN (08:16)
--- NOTE | 2021-04-28 09:24 | Discharge Plan ---
Discharge Plan Problem Reviewed?: Yes Disposition: Home, Self Care Prescriptions: metroNIDAZOLE [Flagyl] 500 mg PO Q8H 10 Days #60 tablet levoFLOXacin [Levaquin] 750 mg PO DAILY 10 Days #30 tablet Diet: Diabetic Weight Bearing: Full Weight No Smoking: If you smoke, Please STOP! Call for help. Follow-up with: Sheng Espana MD [Primary Care Provider] -
[2021-04-28] MEDS: diltiaZEM CD 240 MG CAPSULE PO SCH (11:05)
[2021-04-28] MEDS: PROCHLORPERAZINE 10 MG/2 ML VIAL IVP PRN (11:45)
[2021-04-28] MEDS: SODIUM CHLORIDE FLUSH 0.9% 10 ML SYRINGE IVP PRN ×2 (11:48→14:25)
[2021-04-28] MEDS ORDERED: metroNIDAZOLE 500 MG/100 ML 500 MG/100 ML BAG IV SCH (13:00)
[2021-04-28] MEDS: THIAMINE 100 MG TABLET PO SCH (14:05)
[2021-04-28] MEDS: DOCUSATE SODIUM 100 MG CAPSULE PO SCH ×2 (14:05→20:27)
[2021-04-28] MEDS: PRENATAL VITAMIN TABLET PO SCH (14:05)
[2021-04-28] MEDS ORDERED: PROMETHAZINE INJ 25 MG in SODIUM CHLORIDE 0.9% 50 ML IV PRN (14:47)
[2021-04-28] MEDS: ONDANSETRON ODT 4 MG TABLET TL PRN (17:04)
--- NOTE | 2021-04-28 17:43 | PROVIDER PROGRESS NOTE ---
Subjective - Prog Note Date Prog Note Date: 04/28/21 Prog Note Time: 17:41 - Subjective Pt reports feeling: Improved (Feeling tired but otherwise doing well) Current Medications - Current Medications Current Medications: Current Medications Generic Name Dose Route Start Last Admin Trade Name Freq PRN Reason Stop Dose Admin Diltiazem HCl 240 mg 04/25/21 09:00 04/28/21 11:05 Diltiazem Cd 240 Mg Capsule PO 240 mg DAILY CARLOS Administration Docusate Sodium 100 mg 04/25/21 09:00 04/28/21 14:05 Docusate Sodium 100 Mg Capsule PO Not Given BID CARLOS Enoxaparin Sodium 40 mg 04/26/21 09:00 04/28/21 08:07 Enoxaparin 40 Mg/0.4 Ml Syringe SUBQ Not Given DAILY CARLOS Metronidazole 500 mg in 100 mls @ 100 mls/hr 04/28/21 13:00 04/28/21 15:25 Flagyl 500 Mg/100 Ml IV Infused Q8H CARLOS Infusion Insulin Aspart 1 - 5 unit 04/24/21 08:00 04/28/21 17:05 Insulin Aspart 300 Unit/3 Ml Pen SUBQ 1 unit 0800,1200,1700,2100 CARLOS Administration Protocol Insulin Glargine 5 unit 04/24/21 08:00 04/28/21 08:16 Insulin Glargine 300 Unit/3 Ml Pen SUBQ Not Given QDBREAKFAST CARLOS Levofloxacin 750 mg 04/27/21 11:00 04/27/21 12:32 Levofloxacin 250 Mg Tablet PO 750 mg DAILY CARLOS Administration Ondansetron HCl 4 mg 04/24/21 03:54 04/28/21 17:04 Ondansetron Odt 4 Mg Tablet TL 4 mg Q6HR PRN Administration Nausea / Vomiting Ondansetron HCl 4 mg 04/24/21 03:54 04/28/21 08:16 Ondansetron 4 Mg/2 Ml Vial IVP 4 mg Q6HR PRN Administration Nausea / Vomiting Oxycodone HCl 5 mg 04/24/21 03:54 04/25/21 15:50 Oxycodone 5 Mg Tablet PO 5 mg Q4HR PRN Administration Pain 5 to 7 Pravastatin Sodium 40 mg 04/25/21 21:00 04/27/21 21:11 Pravastatin 40 Mg Tablet PO 40 mg QPM CARLOS Administration Multivit/Folic Acid/Iron 1 tab 04/24/21 08:00 04/28/21 14:05 Vitamin Tablet PO Not Given DAILYWM CARLOS Prochlorperazine Edisylate 10 mg 04/28/21 11:29 04/28/21 11:45 Prochlorperazine 10 Mg/2 Ml Vial IVP 10 mg Q6HR PRN Administration Nausea / Vomiting Sodium Chloride 10 ml 04/24/21 03:54 04/28/21 14:25 Sodium Chloride Flush 0.9% 10 Ml Syringe IVP 10 ml PRN PRN Administration NEEDED PER PROVIDER ORDERS Sodium Chloride 10 ml 04/24/21 09:00 04/28/21 17:05 Sodium Chloride Flush 0.9% 10 Ml Syringe IVP 10 ml 0100,0900,1700 CARLOS Administration Thiamine HCl 100 mg 04/24/21 09:00 04/28/21 14:05 Thiamine 100 Mg Tablet PO Not Given DAILY CARLOS Zolpidem Tartrate 5 mg 04/27/21 17:39 04/27/21 21:11 Zolpidem 5 Mg Tablet PO 5 mg QPM PRN Administration Insomnia Objective - Vital Signs/Intake & Output Vital Signs: Vital Signs x48h Temp Pulse Resp BP Pulse Ox 04/28/21 16:00 36.3 C L 92 18 143/75 H 97 04/28/21 11:02 36.5 C 79 19 144/77 H 95 Intake & Output: Intake & Output 04/25/21 04/26/21 04/27/21 04/28/21 23:59 23:59 23:59 23:59 Intake Total 4140.830 1160 235 100 Output Total 1950 2625 2000 1100 Balance 2190.830 -1465 -1765 -1000 - Objective General Appearance: positive: No acute distress, Alert ENT: positive: ENT inspection nml, Pharynx nml, No signs of dehydration Neck: positive: Nml inspection, Thyroid nml, No JVD Respiratory: positive: Chest non-tender, No respiratory distress, Breath sounds nml Cardiovascular: positive: Regular rate & rhythm, No murmur, No gallop Abdomen: positive: Non-tender Skin: positive: Color nml Extremities: positive: Non-tender - Lab Results Fish Bones: 04/28/21 05:27 04/27/21 05:49 Other Labs: Lab Results x24hrs 04/28/21 Range/Units 05:27 WBC 11.1 H (4.8-10.8) x10^3/uL RBC 3.71 L (4.20-5.40) 10^6/uL Hgb 11.8 L (12.0-16.0) g/dL Hct 35.2 L (37.0-47.0) % MCV 94.9 (81.0-99.0) fL MCH 31.8 H (27.0-31.0) pg MCHC 33.5 (32.0-36.0) g/dL RDW 12.6 (12.0-15.0) % Plt Count 279 (130-450) 10^3/uL MPV 10.2 (7.9-10.8) fL Neut # (Auto) 8.2 H (1.5-6.6) 10^3/uL Lymph # (Auto) 1.4 L (1.5-3.5) 10^3/uL [place] # (Auto) 1.2 H (0.0-1.0) 10^3/uL Eos # (Auto) 0.1 (0.0-0.7) 10^3/uL Baso # (Auto) 0.0 (0.0-0.1) 10^3/uL Absolute Nucleated RBC 0.00 x10^3/uL Nucleated RBC % 0.0 /100WBC ABX Reporting Has patient been on IV antibiotics over the past 48 hours?: Yes Assessment/Plan - Problem List (1) Acute metabolic encephalopathy Impression: Resolved, back at baseline (2) Abnormal abdominal CT scan Impression: Question of biloma persists. Plan was decided yesterday that patient would transfer today to [facility] for outpatient ERCP which would then clip the bile leak and drain the biloma however unfortunately [facility] has declared today that procedures are being placed on hold due to the Covid surge and lack of availability in hospital beds and staffing. Therefore, GI cannot perform the procedure and the plan had to be aborted. I discussed this with Dr Black, Gastroenterology, who was kind enough originally to accept the patient back no longer do so given that he would not have the ability to do procedure or admit the patient afterward. He recommends though that this should get addressed and suggest possibly putting a drain with interventional radiology and then scheduling the ERCP for definitive management as an outpatient when procedure is more readily available. I thanked him for his assistance and proceeded to Discussed the case with Dr. Link, radiology who informed me initially that we could probably do the procedure but was then told by medical technologist clinical that this needs to happen in [facility] and we cannot offer this procedure at this facility at this time. His recommendation was to try [facility] and I thanked him for this recommendation and contacted [facility] nursing garage supervisor and am awaiting a call back. For now continue antibiotic management. Because patient was complaining of nausea with p.o. Flagyl and refusing to take it, I switched it to to IV. (3) Dementia Impression: Stable Qualifiers: Dementia type: associated with other underlying disease Dementia behavioral disturbance: without behavioral disturbance Qualified Code(s): F02.80 - Dementia in other diseases classified elsewhere without behavioral disturbance (4) Type II diabetes mellitus with complication, uncontrolled Impression: Blood sugars reasonably well controlled Continue diabetic diet and insulin sliding scale
[2021-04-28] MEDS: levoFLOXacin 250 MG TABLET PO SCH (18:38)
[2021-04-28] MEDS: ZOLPIDEM 5 MG TABLET PO PRN (20:28)
[2021-04-28] MEDS: PRAVASTATIN 40 MG TABLET PO SCH (20:29)
[2021-04-29 08:54] LABS: HCT - HEMATOCRIT 36.2 % (37.0-47.0); HGB - HEMOGLOBIN 12.2 g/dL (12.0-16.0); MEAN CORPUSCULAR HGB CONC 33.7 g/dL (32.0-36.0); MEAN PLATELET VOLUME 9.8 fL (7.9-10.8); RED BLOOD COUNT 3.81 10^6/uL (4.20-5.40); RED CELL DISTRIBUTION WIDTH 12.6 % (12.0-15.0); WHITE BLOOD COUNT 12.8 x10^3/uL (4.8-10.8)
[2021-04-29] MEDS: ENOXAPARIN 40 MG/0.4 ML SYRINGE SUBQ SCH (09:06)
[2021-04-29 09:07] LABS: ALBUMIN 2.8 g/dL (3.2-5.5); BILIRUBIN,TOTAL 0.7 mg/dL (0.2-1.0); CALCIUM 8.3 mg/dL (8.5-10.3); CREATININE 0.5 mg/dL (0.4-1.0); POTASSIUM 3.5 mmol/L (3.5-5.0); TOTAL PROTEIN 5.7 g/dL (6.7-8.2)
[2021-04-29] MEDS: PRENATAL VITAMIN TABLET PO SCH (09:07)
[2021-04-29] MEDS: THIAMINE 100 MG TABLET PO SCH (09:07)
[2021-04-29] MEDS: levoFLOXacin 250 MG TABLET PO SCH (09:07)
[2021-04-29] MEDS: ONDANSETRON ODT 4 MG TABLET TL PRN ×2 (09:08→16:04)
[2021-04-29] MEDS: diltiaZEM CD 240 MG CAPSULE PO SCH (09:08)
[2021-04-29] MEDS: DOCUSATE SODIUM 100 MG CAPSULE PO SCH ×2 (09:08→21:08)
[2021-04-29] MEDS: INSULIN ASPART 300 UNIT/3 ML PEN SUBQ SCH ×4 (09:09→21:13)
[2021-04-29] MEDS: metroNIDAZOLE 250 MG TABLET PO SCH ×3 (09:10→21:08)
[2021-04-29] MEDS: INSULIN GLARGINE 300 UNIT/3 ML PEN SUBQ SCH (09:10)
[2021-04-29] MEDS: SODIUM CHLORIDE FLUSH 0.9% 10 ML SYRINGE IVP SCH ×3 (09:11→23:47)
--- NOTE | 2021-04-29 13:50 | PROVIDER PROGRESS NOTE ---
Assessment/Plan - Problem List (1) Abnormal abdominal CT scan Assessment/Plan: MRCP suggestive of biloma This has been discussed with surgery,Who recommends ERCP Had tentatively planned to have patient go to [facility] for ERCP then return to us however procedures at [place] were canceled so this plan had to be aborted. Discussed with our interventional radiologist to see if the drain can be placed so that patient can then have ERCP done as an outpatient, as recommended by GI, however informed by Dr. Link that we cannot perform this procedure here as it should be performed in the [facility]. Currently attempting to orchestrate a plan to send patient to [facility] for outpatient interventional radiology drain placement, have patient return to us, then discharge on oral antibiotics with referral to GI at [facility]. Meanwhile continue Levaquin and Flagyl (2) Acute metabolic encephalopathy Assessment/Plan: Patient back at baseline (3) Dementia Qualifiers: Dementia type: associated with other underlying disease Dementia behavioral disturbance: without behavioral disturbance Qualified Code(s): F02.80 - Dementia in other diseases classified elsewhere without behavioral disturbance Assessment/Plan: Stable at baseline (4) Type II diabetes mellitus with complication, uncontrolled Assessment/Plan: Blood sugars reasonably well controlled Continue diabetic diet and insulin sliding scale - Current Meds Current Meds: Current Medications Generic Name Dose Route Start Last Admin Trade Name Maria Alejandra PRN Reason Stop Dose Admin Diltiazem HCl 240 mg 04/25/21 09:00 04/29/21 09:08 Diltiazem Cd 240 Mg Capsule PO 240 mg DAILY CARLOS Administration Docusate Sodium 100 mg 04/25/21 09:00 04/29/21 09:08 Docusate Sodium 100 Mg Capsule PO 100 mg BID CARLOS Administration Enoxaparin Sodium 40 mg 04/26/21 09:00 04/29/21 09:06 Enoxaparin 40 Mg/0.4 Ml Syringe SUBQ 40 mg DAILY CARLOS Administration Insulin Aspart 1 - 5 unit 04/24/21 08:00 04/29/21 12:01 Insulin Aspart 300 Unit/3 Ml Pen SUBQ 2 unit 0800,1200,1700,2100 CARLOS Administration Protocol Insulin Glargine 5 unit 04/24/21 08:00 04/29/21 09:10 Insulin Glargine 300 Unit/3 Ml Pen SUBQ 5 unit QDBREAKFAST CARLOS Administration Levofloxacin 750 mg 04/27/21 11:00 04/29/21 09:07 Levofloxacin 250 Mg Tablet PO 750 mg DAILY CARLOS Administration Metronidazole 500 mg 04/28/21 21:00 04/29/21 09:10 Metronidazole 250 Mg Tablet PO Not Given Q8H CARLOS Ondansetron HCl 4 mg 04/24/21 03:54 04/29/21 09:08 Ondansetron Odt 4 Mg Tablet TL 4 mg Q6HR PRN Administration Nausea / Vomiting Ondansetron HCl 4 mg 04/24/21 03:54 04/28/21 08:16 Ondansetron 4 Mg/2 Ml Vial IVP 4 mg Q6HR PRN Administration Nausea / Vomiting Oxycodone HCl 5 mg 04/24/21 03:54 04/25/21 15:50 Oxycodone 5 Mg Tablet PO 5 mg Q4HR PRN Administration Pain 5 to 7 Pravastatin Sodium 40 mg 04/25/21 21:00 04/28/21 20:29 Pravastatin 40 Mg Tablet PO 40 mg QPM CARLOS Administration Multivit/Folic Acid/Iron 1 tab 04/24/21 08:00 04/29/21 09:07 Vitamin Tablet PO 1 tab DAILYWM CARLOS Administration Prochlorperazine Edisylate 10 mg 04/28/21 11:29 04/28/21 11:45 Prochlorperazine 10 Mg/2 Ml Vial IVP 10 mg Q6HR PRN Administration Nausea / Vomiting Sodium Chloride 10 ml 04/24/21 03:54 04/28/21 14:25 Sodium Chloride Flush 0.9% 10 Ml Syringe IVP 10 ml PRN PRN Administration NEEDED PER PROVIDER ORDERS Sodium Chloride 10 ml 04/24/21 09:00 04/29/21 09:11 Sodium Chloride Flush 0.9% 10 Ml Syringe IVP Not Given 0100,0900,1700 CARLOS Thiamine HCl 100 mg 04/24/21 09:00 04/29/21 09:07 Thiamine 100 Mg Tablet PO 100 mg DAILY CARLOS Administration Zolpidem Tartrate 5 mg 04/27/21 17:39 04/28/21 20:28 Zolpidem 5 Mg Tablet PO 5 mg QPM PRN Administration Insomnia - Lab Result Lab results reviewed: Yes Fish Bone Diagrams: 04/29/21 08:41 04/29/21 08:41 - Additional Planning My Orders: My Active Orders 04/28/21 14:47 Promethazine Inj [Phenergan Inj] 25 mg Sodium Chloride 0.9% [Normal Saline 0.9%] 50 ml IV Q6H 04/28/21 Dinner DIET [Carb-controlled Diet] [DIET] 04/30/21 05:00 CBC W/O DIFF (HEMOGRAM) [HEME] DAILYLAB CMP [COMPREHENSIVE METABOLIC PANEL] [CHEM] DAILYLAB 05/01/21 05:00 CBC W/O DIFF (HEMOGRAM) [HEME] DAILYLAB 05/02/21 05:00 CBC W/O DIFF (HEMOGRAM) [HEME] DAILYLAB Subjective - Subjective Patient Reports: Feeling Better Objective Vital Signs: Vital Signs - 24 hr 04/28/21 04/28/21 04/29/21 16:00 23:30 07:19 Temperature 36.3 C L 36.9 C 36.5 C Heart Rate [ 92 100 87 Brachial] Respiratory 18 16 16 Rate Blood Pressure 143/75 H 142/67 H 139/64 H [Right Brachial artery] O2 Saturation 97 95 95 04/29/21 09:00 Temperature Heart Rate [ 91 Brachial] Respiratory Rate Blood Pressure 132/55 H [Right Brachial artery] O2 Saturation Oxygen O2 Source Room air I&O (Last 24 Hrs): Intake and Output Totals x24h 04/27/21 04/28/21 04/29/21 23:59 23:59 23:59 Intake Total 235 470 460 Output Total 1999 1150 325 Balance -1765 -680 135 General: Alert, Oriented x3 HEENT: Atraumatic, PERRLA Neuro: Alert Cardiovascular: Regular rate, Normal S1, Normal S2 Respiratory: Chest non-tender Abdomen: Normal bowel sounds Skin: No rashes - Results Results: Laboratory Results WBC 12.8 x10^3/uL (4.8-10.8) H 04/29/21 08:41 Corrected WBC Cancelled 04/24/21 01:02 RBC 3.81 10^6/uL (4.20-5.40) L 04/29/21 08:41 Hgb 12.2 g/dL (12.0-16.0) 04/29/21 08:41 Hct 36.2 % (37.0-47.0) L 04/29/21 08:41 MCV 95.0 fL (81.0-99.0) 04/29/21 08:41 MCH 32.0 pg (27.0-31.0) H 04/29/21 08:41 MCHC 33.7 g/dL (32.0-36.0) 04/29/21 08:41 RDW 12.6 % (12.0-15.0) 04/29/21 08:41 Plt Count 283 10^3/uL (130-450) 04/29/21 08:41 MPV 9.8 fL (7.9-10.8) 04/29/21 08:41 Neut # (Auto) 8.2 10^3/uL (1.5-6.6) H 04/28/21 05:27 Lymph # (Auto) 1.4 10^3/uL (1.5-3.5) L 04/28/21 05:27 [place] # (Auto) 1.2 10^3/uL (0.0-1.0) H 04/28/21 05:27 Eos # (Auto) 0.1 10^3/uL (0.0-0.7) 04/28/21 05:27 Baso # (Auto) 0.0 10^3/uL (0.0-0.1) 04/28/21 05:27 Absolute Nucleated RBC 0.00 x10^3/uL 04/28/21 05:27 Total Counted Cancelled 04/24/21 01:02 Band Neuts % (Manual) Cancelled 04/24/21 01:02 Reactive Lymphs % (Man) Cancelled 04/24/21 01:02 Abnorm Lymph % (Manual) Cancelled 04/24/21 01:02 Metamyelocytes % Cancelled 04/24/21 01:02 Myelocytes % Cancelled 04/24/21 01:02 Promyelocytes % Cancelled 04/24/21 01:02 Blast Cells % Cancelled 04/24/21 01:02 Plasma Cell % (Manual) Cancelled 04/24/21 01:02 Other Cells % Cancelled 04/24/21 01:02 Nucleated RBC % 0.0 /100WBC 04/28/21 05:27 Neutrophils # (Manual) Cancelled 04/24/21 01:02 Lymphocytes # (Manual) Cancelled 04/24/21 01:02 Monocytes # (Manual) Cancelled 04/24/21 01:02 Eosinophils # (Manual) Cancelled 04/24/21 01:02 Basophils # (Manual) Cancelled 04/24/21 01:02 Nucleated RBCs Cancelled 04/24/21 01:02 Differential Comment Cancelled 04/24/21 01:02 Manual Slide Review Cancelled 04/24/21 01:02 WBC Morphology Cancelled 04/24/21 01:02 Platelet Estimate Cancelled 04/24/21 01:02 Platelet Morphology Cancelled 04/24/21 01:02 RBC Morph Micro Appear Cancelled 04/24/21 01:02 Sodium 133 mmol/L (135-145) L 04/29/21 08:41 Potassium 3.5 mmol/L (3.5-5.0) 04/29/21 08:41 Chloride 98 mmol/L (101-111) L 04/29/21 08:41 Carbon Dioxide 25 mmol/L (21-32) 04/29/21 08:41 Anion Gap 10.0 (6-13) 04/29/21 08:41 BUN 14 mg/dL (6-20) 04/29/21 08:41 Creatinine 0.5 mg/dL (0.4-1.0) 04/29/21 08:41 Estimated GFR (MDRD) 119 (>89) 04/29/21 08:41 Glucose 219 mg/dL (70-100) H 04/29/21 08:41 Estimat Average Glucose 146 mg/dL (70-100) H 04/24/21 12:45 Hemoglobin A1c % 6.7 % (4.27-6.07) H 04/24/21 12:45 Lactic Acid 1.9 mmol/L (0.5-2.2) 04/24/21 07:36 Calcium 8.3 mg/dL (8.5-10.3) L 04/29/21 08:41 Total Bilirubin 0.7 mg/dL (0.2-1.0) 04/29/21 08:41 AST 14 IU/L (10-42) 04/29/21 08:41 ALT 16 IU/L (10-60) 04/29/21 08:41 Alkaline Phosphatase 69 IU/L (42-121) 04/29/21 08:41 Ammonia 16.1 umol/L (7-35) 04/25/21 06:48 Troponin I High Sens 21.7 ng/L (2.3-14.8) H* 04/24/21 01:02 Total Protein 5.7 g/dL (6.7-8.2) L 04/29/21 08:41 Albumin 2.8 g/dL (3.2-5.5) L 04/29/21 08:41 Globulin 2.9 g/dL (2.1-4.2) 04/29/21 08:41 Albumin/Globulin Ratio 1.0 (1.0-2.2) 04/29/21 08:41 Lipase 19 U/L (22-51) L 04/24/21 01:02 Urine Color YELLOW 04/24/21 01:15 Urine Clarity CLEAR (CLEAR) 04/24/21 01:15 Urine pH 6.0 PH (5.0-7.5) 04/24/21 01:15 Ur Specific [place] 1.020 (1.002-1.030) 04/24/21 01:15 Urine Protein NEGATIVE mg/dL (NEGATIVE) 04/24/21 01:15 Urine Glucose (UA) 100 mg/dL (NEGATIVE) H 04/24/21 01:15 Urine Ketones 15 mg/dL (NEGATIVE) H 04/24/21 01:15 Urine Occult Blood NEGATIVE (NEGATIVE) 04/24/21 01:15 Urine Nitrite NEGATIVE (NEGATIVE) 04/24/21 01:15 Urine Bilirubin NEGATIVE (NEGATIVE) 04/24/21 01:15 Urine Urobilinogen 0.2 (NORMAL) E.U./dL (NORMAL) 04/24/21 01:15 Ur Leukocyte Esterase NEGATIVE (NEGATIVE) 04/24/21 01:15 Urine RBC 0-5 /HPF (0-5) 04/24/21 01:15 Urine WBC 0-3 /HPF (0-5) 04/24/21 01:15 Ur Squamous Epith Cells RARE Squamous (<= Few) 04/24/21 01:15 Urine Bacteria Few /HPF (None Seen) 04/24/21 01:15 Urine Culture Comments NOT INDICATED 04/24/21 01:15 Urine Sodium 70.0 mmol/L 04/24/21 01:15 Nasal Adenovirus (PCR) NOT DETECTED 04/24/21 01:48 Nasal B. parapertussis DNA (PCR) NOT DETECTED 04/24/21 01:48 Nasal Coronavir 229E PCR NOT DETECTED 04/24/21 01:48 Nasal Coronavir HKU1 PCR NOT DETECTED 04/24/21 01:48 Nasal Coronavir NL63 PCR NOT DETECTED 04/24/21 01:48 Nasal Coronavir OC43 PCR NOT DETECTED 04/24/21 01:48 Nasal Enterovir/Rhinovir PCR NOT DETECTED 04/24/21 01:48 Nasal Influenza B PCR NOT DETECTED 04/24/21 01:48 Nasal Influenza A PCR NOT DETECTED 04/24/21 01:48 Nasal Parainfluen 1 PCR NOT DETECTED 04/24/21 01:48 Nasal Parainfluen 2 PCR NOT DETECTED 04/24/21 01:48 Nasal Parainfluen 3 PCR NOT DETECTED 04/24/21 01:48 Nasal Parainfluen 4 PCR NOT DETECTED 04/24/21 01:48 Nasal RSV (PCR) NOT DETECTED 04/24/21 01:48 Nasal B.pertussis DNA PCR NOT DETECTED 04/24/21 01:48 Nasal C.pneumoniae (PCR) NOT DETECTED 04/24/21 01:48 Gregorio Human Metapneumo PCR NOT DETECTED 04/24/21 01:48 Nasal M.pneumoniae (PCR) NOT DETECTED 04/24/21 01:48 Nasal SARS-CoV-2 (PCR) NOT DETECTED 04/24/21 01:48 SARS-CoV-2 (PCR) NOT DETECTED 04/29/21 10:20 Slides for Path Review Cancelled 04/24/21 01:02 ABX Reporting Has patient been on IV antibiotics over the past 48 hours?: Yes Current Medications - Current Medications Current Medications: Current Medications Generic Name Dose Route Start Last Admin Trade Name Freq PRN Reason Stop Dose Admin Diltiazem HCl 240 mg 04/25/21 09:00 04/29/21 09:08 Diltiazem Cd 240 Mg Capsule PO 240 mg DAILY CARLOS Administration Docusate Sodium 100 mg 04/25/21 09:00 04/29/21 09:08 Docusate Sodium 100 Mg Capsule PO 100 mg BID CARLOS Administration Enoxaparin Sodium 40 mg 04/26/21 09:00 04/29/21 09:06 Enoxaparin 40 Mg/0.4 Ml Syringe SUBQ 40 mg DAILY CARLOS Administration Insulin Aspart 1 - 5 unit 04/24/21 08:00 04/29/21 12:01 Insulin Aspart 300 Unit/3 Ml Pen SUBQ 2 unit 0800,1200,1700,2100 CARLOS Administration Protocol Insulin Glargine 5 unit 04/24/21 08:00 04/29/21 09:10 Insulin Glargine 300 Unit/3 Ml Pen SUBQ 5 unit QDBREAKFAST CARLOS Administration Levofloxacin 750 mg 04/27/21 11:00 04/29/21 09:07 Levofloxacin 250 Mg Tablet PO 750 mg DAILY CARLOS Administration Metronidazole 500 mg 04/28/21 21:00 04/29/21 09:10 Metronidazole 250 Mg Tablet PO Not Given Q8H CARLOS Ondansetron HCl 4 mg 04/24/21 03:54 04/29/21 09:08 Ondansetron Odt 4 Mg Tablet TL 4 mg Q6HR PRN Administration Nausea / Vomiting Ondansetron HCl 4 mg 04/24/21 03:54 04/28/21 08:16 Ondansetron 4 Mg/2 Ml Vial IVP 4 mg Q6HR PRN Administration Nausea / Vomiting Oxycodone HCl 5 mg 04/24/21 03:54 04/25/21 15:50 Oxycodone 5 Mg Tablet PO 5 mg Q4HR PRN Administration Pain 5 to 7 Pravastatin Sodium 40 mg 04/25/21 21:00 04/28/21 20:29 Pravastatin 40 Mg Tablet PO 40 mg QPM CARLOS Administration Multivit/Folic Acid/Iron 1 tab 04/24/21 08:00 04/29/21 09:07 Vitamin Tablet PO 1 tab DAILYWM CARLOS Administration Prochlorperazine Edisylate 10 mg 04/28/21 11:29 04/28/21 11:45 Prochlorperazine 10 Mg/2 Ml Vial IVP 10 mg Q6HR PRN Administration Nausea / Vomiting Sodium Chloride 10 ml 04/24/21 03:54 04/28/21 14:25 Sodium Chloride Flush 0.9% 10 Ml Syringe IVP 10 ml PRN PRN Administration NEEDED PER PROVIDER ORDERS Sodium Chloride 10 ml 04/24/21 09:00 04/29/21 09:11 Sodium Chloride Flush 0.9% 10 Ml Syringe IVP Not Given 0100,0900,1700 CARLOS Thiamine HCl 100 mg 04/24/21 09:00 04/29/21 09:07 Thiamine 100 Mg Tablet PO 100 mg DAILY CARLOS Administration Zolpidem Tartrate 5 mg 04/27/21 17:39 04/28/21 20:28 Zolpidem 5 Mg Tablet PO 5 mg QPM PRN Administration Insomnia
[2021-04-29] MEDS ORDERED: BACITRACIN ZINC OINT 1 PACKET TOP PRN (15:36)
[2021-04-29] MEDS: ONDANSETRON 4 MG/2 ML VIAL IVP PRN (17:49)
[2021-04-29] MEDS: PRAVASTATIN 40 MG TABLET PO SCH (21:08)
[2021-04-29 21:21] LABS: B. PARAPERTUSSIS- RESP PCR PAN NOT DETECTED; B. PERTUSSIS- RESP PCR PANEL NOT DETECTED; C. PNEUMONIAE- RESP PCR PANEL NOT DETECTED; CORONAVIRUS 229E-RESP PCR NOT DETECTED; CORONAVIRUS HKU1-RESP PCR NOT DETECTED; CORONAVIRUS NL63-RESP PCR NOT DETECTED; CORONAVIRUS OC43-RESP PCR NOT DETECTED; HUMAN METAPNEUMOVIRUS NOT DETECTED; INFLUENZA A- RESP PCR PANEL NOT DETECTED; INFLUENZA B - RESP PCR PANEL NOT DETECTED; M. PNEUMONIAE- RESP PCR PANEL NOT DETECTED; PARAINFLUENZA VIRUS 1 NOT DETECTED; PARAINFLUENZA VIRUS 2 NOT DETECTED; PARAINFLUENZA VIRUS 3 NOT DETECTED; PARAINFLUENZA VIRUS 4 NOT DETECTED; RHINOVIRUS/ENTEROVIRUS NOT DETECTED; RSV- RESP PCR PANEL NOT DETECTED; SARS-CoV-2 -RESP PCR PANEL NOT DETECTED
[2021-04-29] MEDS: ZOLPIDEM 5 MG TABLET PO PRN (22:38)
[2021-04-30] MEDS: metroNIDAZOLE 250 MG TABLET PO SCH ×3 (04:33→21:04)
[2021-04-30 05:57] LABS: HCT - HEMATOCRIT 35.6 % (37.0-47.0); HGB - HEMOGLOBIN 12.1 g/dL (12.0-16.0); MEAN CORPUSCULAR HEMOGLOBIN 32.1 pg (27.0-31.0); MEAN CORPUSCULAR VOLUME 94.4 fL (81.0-99.0); MEAN PLATELET VOLUME 9.8 fL (7.9-10.8); RED BLOOD COUNT 3.77 10^6/uL (4.20-5.40); RED CELL DISTRIBUTION WIDTH 12.9 % (12.0-15.0); WHITE BLOOD COUNT 10.7 x10^3/uL (4.8-10.8)
[2021-04-30 06:01] LABS: ALBUMIN 2.7 g/dL (3.2-5.5); ALBUMIN/GLOBULIN RATIO 0.9 (1.0-2.2); BILIRUBIN,TOTAL 0.8 mg/dL (0.2-1.0); CALCIUM 8.4 mg/dL (8.5-10.3); CREATININE 0.6 mg/dL (0.4-1.0); POTASSIUM 3.2 mmol/L (3.5-5.0); TOTAL PROTEIN 5.6 g/dL (6.7-8.2)
[2021-04-30] MEDS ORDERED: POTASSIUM CHLORIDE 20 MEQ TABLET PO ONE (06:58)
[2021-04-30] MEDS: PROCHLORPERAZINE 10 MG/2 ML VIAL IVP PRN (08:28)
[2021-04-30] MEDS: SODIUM CHLORIDE FLUSH 0.9% 10 ML SYRINGE IVP SCH ×2 (08:28→16:27)
[2021-04-30] MEDS: ENOXAPARIN 40 MG/0.4 ML SYRINGE SUBQ SCH (08:29)
[2021-04-30] MEDS: levoFLOXacin 250 MG TABLET PO SCH (08:29)
[2021-04-30] MEDS: PRENATAL VITAMIN TABLET PO SCH (08:29)
[2021-04-30] MEDS: THIAMINE 100 MG TABLET PO SCH (08:29)
[2021-04-30] MEDS: diltiaZEM CD 240 MG CAPSULE PO SCH (08:29)
[2021-04-30] MEDS: DOCUSATE SODIUM 100 MG CAPSULE PO SCH ×2 (08:30→21:03)
[2021-04-30] MEDS: INSULIN GLARGINE 300 UNIT/3 ML PEN SUBQ SCH (08:35)
[2021-04-30] MEDS: INSULIN REGULAR HUMAN 300 UNIT/3 ML VIAL SUBQ SCH ×2 (08:49→11:31)
[2021-04-30] MEDS: ONDANSETRON ODT 4 MG TABLET TL PRN (11:32)
--- NOTE | 2021-04-30 12:29 | PROVIDER PROGRESS NOTE ---
Assessment/Plan - Problem List (1) Abnormal abdominal CT scan Assessment/Plan: Patient came in with abdominal pain.. MRCP was suggestive of biloma. This led to CT scan which was suggestive of the possibility of a biloma and MRCP was suggested. This has been discussed with surgery, who recommends ERCP Had previously planned to have patient go to [facility] for ERCP then return to us, however, procedures at [facility] were canceled so this plan had to be aborted. Spoke with Dr Black Who recommended that since we did not do the ERCP, try to arrange for interventional radiology drain placement to temporize followed by an outpatient ERCP once procedure's were able to again. Discussed with our interventional radiologist to see if the drain can be placed so that patient can then have ERCP done as an outpatient, as recommended by GI, however informed by Dr. Link that we cannot perform this procedure here as it should be performed in the [facility]. Then attempted to orchestrate a plan to send patient to [facility] for outpatient interventional radiology drain placement, have patient return to us, then discharge on oral antibiotics with referral to GI at [facility]. Today spoke with radiologist at [facility] who does not feel that drainage is neither feasible nor necessary. So at this point, plan would be to d/c home then outpt ERCP. Discussed this with patient, and currently she is unable to tolerate food. (Conts to have persistent nausea and no appetite). Will try her on CLD and advance as tolerated. If/when she is able to resume eating food, we can d/c home then outpt ERCP at [facility]. Meanwhile continue Levaquin and Flagyl (2) Acute metabolic encephalopathy Assessment/Plan: Resolved (3) Dementia Qualifiers: Dementia type: associated with other underlying disease Dementia behavioral disturbance: without behavioral disturbance Qualified Code(s): F02.80 - Dementia in other diseases classified elsewhere without behavioral disturbance Assessment/Plan: Stable (4) Type II diabetes mellitus with complication, uncontrolled Assessment/Plan: BS controlled - Current Meds Current Meds: Current Medications Generic Name Dose Route Start Last Admin Trade Name Freq PRN Reason Stop Dose Admin Diltiazem HCl 240 mg 04/25/21 09:00 04/30/21 08:29 Diltiazem Cd 240 Mg Capsule PO 240 mg DAILY CARLOS Administration Docusate Sodium 100 mg 04/25/21 09:00 04/30/21 08:30 Docusate Sodium 100 Mg Capsule PO 100 mg BID CARLOS Administration Enoxaparin Sodium 40 mg 04/26/21 09:00 04/30/21 08:29 Enoxaparin 40 Mg/0.4 Ml Syringe SUBQ 40 mg DAILY CARLOS Administration Insulin Glargine 5 unit 04/24/21 08:00 04/30/21 08:35 Insulin Glargine 300 Unit/3 Ml Pen SUBQ 5 unit [id number] CARLOS Administration Levofloxacin 750 mg 04/27/21 11:00 04/30/21 08:29 Levofloxacin 250 Mg Tablet PO 750 mg DAILY CARLOS Administration Metronidazole 500 mg 04/28/21 21:00 04/30/21 11:32 Metronidazole 250 Mg Tablet PO 500 mg Q8H CARLOS Administration Ondansetron HCl 4 mg 04/24/21 03:54 04/29/21 16:04 Ondansetron Odt 4 Mg Tablet TL 4 mg Q6HR PRN Administration Nausea / Vomiting Ondansetron HCl 4 mg 04/24/21 03:54 04/29/21 17:49 Ondansetron 4 Mg/2 Ml Vial IVP 4 mg Q6HR PRN Administration Nausea / Vomiting Oxycodone HCl 5 mg 04/24/21 03:54 04/25/21 15:50 Oxycodone 5 Mg Tablet PO 5 mg Q4HR PRN Administration Pain 5 to 7 Pravastatin Sodium 40 mg 04/25/21 21:00 04/29/21 21:08 Pravastatin 40 Mg Tablet PO 40 mg QPM CARLOS Administration Multivit/Folic Acid/Iron 1 tab 04/24/21 08:00 04/30/21 08:29 Vitamin Tablet PO 1 tab DAILYWM CARLOS Administration Prochlorperazine Edisylate 10 mg 04/28/21 11:29 04/30/21 08:28 Prochlorperazine 10 Mg/2 Ml Vial IVP 10 mg Q6HR PRN Administration Nausea / Vomiting Sodium Chloride 10 ml 04/24/21 03:54 04/28/21 14:25 Sodium Chloride Flush 0.9% 10 Ml Syringe IVP 10 ml PRN PRN Administration NEEDED PER PROVIDER ORDERS Sodium Chloride 10 ml 04/24/21 09:00 04/30/21 08:28 Sodium Chloride Flush 0.9% 10 Ml Syringe IVP 10 ml 0100,0900,1700 CARLOS Administration Thiamine HCl 100 mg 04/24/21 09:00 04/30/21 08:29 Thiamine 100 Mg Tablet PO 100 mg DAILY CARLOS Administration Zolpidem Tartrate 5 mg 04/27/21 17:39 04/29/21 22:38 Zolpidem 5 Mg Tablet PO 5 mg QPM PRN Administration Insomnia - Lab Result Fish Bone Diagrams: 04/30/21 05:35 04/30/21 05:35 - Additional Planning My Orders: My Active Orders 04/30/21 Dinner Clear Liquid Diet [DIET] 05/01/21 05:00 CBC W/O DIFF (HEMOGRAM) [HEME] DAILYLAB 05/02/21 05:00 CBC W/O DIFF (HEMOGRAM) [HEME] DAILYLAB Subjective - Subjective Patient Reports: Nausea (Though denies any abdominal pain) Objective Vital Signs: Vital Signs - 24 hr 04/29/21 04/29/21 04/30/21 16:00 23:47 07:45 Temperature 36.5 C 36.8 C 36.7 C Heart Rate [ 87 92 85 Brachial] Respiratory 18 18 16 Rate Blood Pressure 146/70 H 131/57 H 141/65 H [Right Brachial artery] O2 Saturation 97 93 93 Oxygen O2 Source Room air I&O (Last 24 Hrs): Intake and Output Totals x24h 04/28/21 04/29/21 04/30/21 23:59 23:59 23:59 Intake Total 470 810 50 Output Total 1150 475 400 Balance -680 335 -350 General: Alert, Oriented x3, Cooperative HEENT: Atraumatic Lymphatic: no adenopathy Neuro: Alert, Disoriented Cardiovascular: Normal S1, Normal S2 Respiratory: Chest non-tender, No respiratory distress, Breath sounds nml Abdomen: Normal bowel sounds, Soft, No tenderness Skin: No rashes - Results Results: Laboratory Results WBC 10.7 x10^3/uL (4.8-10.8) 04/30/21 05:35 Corrected WBC Cancelled 04/24/21 01:02 RBC 3.77 10^6/uL (4.20-5.40) L 04/30/21 05:35 Hgb 12.1 g/dL (12.0-16.0) 04/30/21 05:35 Hct 35.6 % (37.0-47.0) L 04/30/21 05:35 MCV 94.4 fL (81.0-99.0) 04/30/21 05:35 MCH 32.1 pg (27.0-31.0) H 04/30/21 05:35 MCHC 34.0 g/dL (32.0-36.0) 04/30/21 05:35 RDW 12.9 % (12.0-15.0) 04/30/21 05:35 Plt Count 293 10^3/uL (130-450) 04/30/21 05:35 MPV 9.8 fL (7.9-10.8) 04/30/21 05:35 Neut # (Auto) 8.2 10^3/uL (1.5-6.6) H 04/28/21 05:27 Lymph # (Auto) 1.4 10^3/uL (1.5-3.5) L 04/28/21 05:27 [place] # (Auto) 1.2 10^3/uL (0.0-1.0) H 04/28/21 05:27 Eos # (Auto) 0.1 10^3/uL (0.0-0.7) 04/28/21 05:27 Baso # (Auto) 0.0 10^3/uL (0.0-0.1) 04/28/21 05:27 Absolute Nucleated RBC 0.00 x10^3/uL 04/28/21 05:27 Total Counted Cancelled 04/24/21 01:02 Band Neuts % (Manual) Cancelled 04/24/21 01:02 Reactive Lymphs % (Man) Cancelled 04/24/21 01:02 Abnorm Lymph % (Manual) Cancelled 04/24/21 01:02 Metamyelocytes % Cancelled 04/24/21 01:02 Myelocytes % Cancelled 04/24/21 01:02 Promyelocytes % Cancelled 04/24/21 01:02 Blast Cells % Cancelled 04/24/21 01:02 Plasma Cell % (Manual) Cancelled 04/24/21 01:02 Other Cells % Cancelled 04/24/21 01:02 Nucleated RBC % 0.0 /100WBC 04/28/21 05:27 Neutrophils # (Manual) Cancelled 04/24/21 01:02 Lymphocytes # (Manual) Cancelled 04/24/21 01:02 Monocytes # (Manual) Cancelled 04/24/21 01:02 Eosinophils # (Manual) Cancelled 04/24/21 01:02 Basophils # (Manual) Cancelled 04/24/21 01:02 Nucleated RBCs Cancelled 04/24/21 01:02 Differential Comment Cancelled 04/24/21 01:02 Manual Slide Review Cancelled 04/24/21 01:02 WBC Morphology Cancelled 04/24/21 01:02 Platelet Estimate Cancelled 04/24/21 01:02 Platelet Morphology Cancelled 04/24/21 01:02 RBC Morph Micro Appear Cancelled 04/24/21 01:02 Sodium 135 mmol/L (135-145) 04/30/21 05:35 Potassium 3.2 mmol/L (3.5-5.0) L 04/30/21 05:35 Chloride 98 mmol/L (101-111) L 04/30/21 05:35 Carbon Dioxide 26 mmol/L (21-32) 04/30/21 05:35 Anion Gap 11.0 (6-13) 04/30/21 05:35 BUN 12 mg/dL (6-20) 04/30/21 05:35 Creatinine 0.6 mg/dL (0.4-1.0) 04/30/21 05:35 Estimated GFR (MDRD) 97 (>89) 04/30/21 05:35 Glucose 174 mg/dL (70-100) H 04/30/21 05:35 Estimat Average Glucose 146 mg/dL (70-100) H 04/24/21 12:45 Hemoglobin A1c % 6.7 % (4.27-6.07) H 04/24/21 12:45 Lactic Acid 1.9 mmol/L (0.5-2.2) 04/24/21 07:36 Calcium 8.4 mg/dL (8.5-10.3) L 04/30/21 05:35 Total Bilirubin 0.8 mg/dL (0.2-1.0) 04/30/21 05:35 AST 13 IU/L (10-42) 04/30/21 05:35 ALT 14 IU/L (10-60) 04/30/21 05:35 Alkaline Phosphatase 66 IU/L (42-121) 04/30/21 05:35 Ammonia 16.1 umol/L (7-35) 04/25/21 06:48 Troponin I High Sens 21.7 ng/L (2.3-14.8) H* 04/24/21 01:02 Total Protein 5.6 g/dL (6.7-8.2) L 04/30/21 05:35 Albumin 2.7 g/dL (3.2-5.5) L 04/30/21 05:35 Globulin 2.9 g/dL (2.1-4.2) 04/30/21 05:35 Albumin/Globulin Ratio 0.9 (1.0-2.2) L 04/30/21 05:35 Lipase 19 U/L (22-51) L 04/24/21 01:02 Urine Color YELLOW 04/24/21 01:15 Urine Clarity CLEAR (CLEAR) 04/24/21 01:15 Urine pH 6.0 PH (5.0-7.5) 04/24/21 01:15 Ur Specific [place] 1.020 (1.002-1.030) 04/24/21 01:15 Urine Protein NEGATIVE mg/dL (NEGATIVE) 04/24/21 01:15 Urine Glucose (UA) 100 mg/dL (NEGATIVE) H 04/24/21 01:15 Urine Ketones 15 mg/dL (NEGATIVE) H 04/24/21 01:15 Urine Occult Blood NEGATIVE (NEGATIVE) 04/24/21 01:15 Urine Nitrite NEGATIVE (NEGATIVE) 04/24/21 01:15 Urine Bilirubin NEGATIVE (NEGATIVE) 04/24/21 01:15 Urine Urobilinogen 0.2 (NORMAL) E.U./dL (NORMAL) 04/24/21 01:15 Ur Leukocyte Esterase NEGATIVE (NEGATIVE) 04/24/21 01:15 Urine RBC 0-5 /HPF (0-5) 04/24/21 01:15 Urine WBC 0-3 /HPF (0-5) 04/24/21 01:15 Ur Squamous Epith Cells RARE Squamous (<= Few) 04/24/21 01:15 Urine Bacteria Few /HPF (None Seen) 04/24/21 01:15 Urine Culture Comments NOT INDICATED 04/24/21 01:15 Urine Sodium 70.0 mmol/L 04/24/21 01:15 Nasal Adenovirus (PCR) NOT DETECTED 04/29/21 20:25 Nasal B. parapertussis DNA (PCR) NOT DETECTED 04/29/21 20:25 Nasal Coronavir 229E PCR NOT DETECTED 04/29/21 20:25 Nasal Coronavir HKU1 PCR NOT DETECTED 04/29/21 20:25 Nasal Coronavir NL63 PCR NOT DETECTED 04/29/21 20:25 Nasal Coronavir OC43 PCR NOT DETECTED 04/29/21 20:25 Nasal Enterovir/Rhinovir PCR NOT DETECTED 04/29/21 20:25 Nasal Influenza B PCR NOT DETECTED 04/29/21 20:25 Nasal Influenza A PCR NOT DETECTED 04/29/21 20:25 Nasal Parainfluen 1 PCR NOT DETECTED 04/29/21 20:25 Nasal Parainfluen 2 PCR NOT DETECTED 04/29/21 20:25 Nasal Parainfluen 3 PCR NOT DETECTED 04/29/21 20:25 Nasal Parainfluen 4 PCR NOT DETECTED 04/29/21 20:25 Nasal RSV (PCR) NOT DETECTED 04/29/21 20:25 Nasal B.pertussis DNA PCR NOT DETECTED 04/29/21 20:25 Nasal C.pneumoniae (PCR) NOT DETECTED 04/29/21 20:25 Gregorio Human Metapneumo PCR NOT DETECTED 04/29/21 20:25 Nasal M.pneumoniae (PCR) NOT DETECTED 04/29/21 20:25 Nasal SARS-CoV-2 (PCR) NOT DETECTED 04/29/21 20:25 SARS-CoV-2 (PCR) NOT DETECTED 04/29/21 10:20 Slides for Path Review Cancelled 04/24/21 01:02 ABX Reporting Has patient been on IV antibiotics over the past 48 hours?: Yes Current Medications - Current Medications Current Medications: Current Medications Generic Name Dose Route Start Last Admin Trade Name Freq PRN Reason Stop Dose Admin Diltiazem HCl 240 mg 04/25/21 09:00 04/30/21 08:29 Diltiazem Cd 240 Mg Capsule PO 240 mg DAILY CARLOS Administration Docusate Sodium 100 mg 04/25/21 09:00 04/30/21 08:30 Docusate Sodium 100 Mg Capsule PO 100 mg BID CARLOS Administration Enoxaparin Sodium 40 mg 04/26/21 09:00 04/30/21 08:29 Enoxaparin 40 Mg/0.4 Ml Syringe SUBQ 40 mg DAILY CARLOS Administration Insulin Glargine 5 unit 04/24/21 08:00 04/30/21 08:35 Insulin Glargine 300 Unit/3 Ml Pen SUBQ 5 unit QDBREAKFAST CARLOS Administration Levofloxacin 750 mg 04/27/21 11:00 04/30/21 08:29 Levofloxacin 250 Mg Tablet PO 750 mg DAILY CARLOS Administration Metronidazole 500 mg 04/28/21 21:00 04/30/21 11:32 Metronidazole 250 Mg Tablet PO 500 mg Q8H CARLOS Administration Ondansetron HCl 4 mg 04/24/21 03:54 04/29/21 16:04 Ondansetron Odt 4 Mg Tablet TL 4 mg Q6HR PRN Administration Nausea / Vomiting Ondansetron HCl 4 mg 04/24/21 03:54 04/29/21 17:49 Ondansetron 4 Mg/2 Ml Vial IVP 4 mg Q6HR PRN Administration Nausea / Vomiting Oxycodone HCl 5 mg 04/24/21 03:54 04/25/21 15:50 Oxycodone 5 Mg Tablet PO 5 mg Q4HR PRN Administration Pain 5 to 7 Pravastatin Sodium 40 mg 04/25/21 21:00 04/29/21 21:08 Pravastatin 40 Mg Tablet PO 40 mg QPM CARLOS Administration Multivit/Folic Acid/Iron 1 tab 04/24/21 08:00 04/30/21 08:29 Vitamin Tablet PO 1 tab DAILYWM CARLOS Administration Prochlorperazine Edisylate 10 mg 04/28/21 11:29 04/30/21 08:28 Prochlorperazine 10 Mg/2 Ml Vial IVP 10 mg Q6HR PRN Administration Nausea / Vomiting Sodium Chloride 10 ml 04/24/21 03:54 04/28/21 14:25 Sodium Chloride Flush 0.9% 10 Ml Syringe IVP 10 ml PRN PRN Administration NEEDED PER PROVIDER ORDERS Sodium Chloride 10 ml 04/24/21 09:00 04/30/21 08:28 Sodium Chloride Flush 0.9% 10 Ml Syringe IVP 10 ml 0100,0900,1700 CARLOS Administration Thiamine HCl 100 mg 04/24/21 09:00 04/30/21 08:29 Thiamine 100 Mg Tablet PO 100 mg DAILY CARLOS Administration Zolpidem Tartrate 5 mg 04/27/21 17:39 10/06/21 22:38 Zolpidem 5 Mg Tablet PO 5 mg QPM PRN Administration Insomnia
[2021-04-30] MEDS: INSULIN ASPART 300 UNIT/3 ML PEN SUBQ SCH ×3 (12:34→21:06)
[2021-04-30] MEDS: SODIUM CHLORIDE FLUSH 0.9% 10 ML SYRINGE IVP PRN (12:34)
[2021-04-30] MEDS: ONDANSETRON 4 MG/2 ML VIAL IVP PRN (16:27)
[2021-04-30] MEDS: PRAVASTATIN 40 MG TABLET PO SCH (21:05)
[2021-04-30] MEDS: ZOLPIDEM 5 MG TABLET PO PRN (21:23)
[2021-05-01] MEDS: SODIUM CHLORIDE FLUSH 0.9% 10 ML SYRINGE IVP SCH ×4 (00:07→23:37)
[2021-05-01] MEDS ORDERED: diphenhydrAMINE 25 MG CAPSULE PO STA (00:12)
[2021-05-01] MEDS: metroNIDAZOLE 250 MG TABLET PO SCH ×3 (05:20→20:54)
[2021-05-01 06:36] LABS: HGB - HEMOGLOBIN 12.1 g/dL (12.0-16.0); MEAN CORPUSCULAR HEMOGLOBIN 32.9 pg (27.0-31.0); MEAN CORPUSCULAR HGB CONC 34.6 g/dL (32.0-36.0); MEAN CORPUSCULAR VOLUME 95.1 fL (81.0-99.0); MEAN PLATELET VOLUME 9.6 fL (7.9-10.8); RED BLOOD COUNT 3.68 10^6/uL (4.20-5.40); RED CELL DISTRIBUTION WIDTH 12.9 % (12.0-15.0); WHITE BLOOD COUNT 13.2 x10^3/uL (4.8-10.8)
[2021-05-01] MEDS: INSULIN ASPART 300 UNIT/3 ML PEN SUBQ SCH ×4 (08:11→21:04)
[2021-05-01] MEDS: INSULIN GLARGINE 300 UNIT/3 ML PEN SUBQ SCH (08:14)
[2021-05-01] MEDS: diltiaZEM CD 240 MG CAPSULE PO SCH (08:14)
[2021-05-01] MEDS: ENOXAPARIN 40 MG/0.4 ML SYRINGE SUBQ SCH (08:17)
[2021-05-01] MEDS: levoFLOXacin 250 MG TABLET PO SCH (08:36)
[2021-05-01] MEDS: DOCUSATE SODIUM 100 MG CAPSULE PO SCH ×2 (10:18→20:52)
[2021-05-01] MEDS: ONDANSETRON 4 MG/2 ML VIAL IVP PRN (11:46)
[2021-05-01] MEDS: THIAMINE 100 MG TABLET PO SCH (11:47)
[2021-05-01] MEDS: PRENATAL VITAMIN TABLET PO SCH (11:47)
[2021-05-01] MEDS: SACCHAROMYCES BOULARDII 250 MG CAPSULE PO SCH (16:51)
[2021-05-01 16:52] LABS: BILIRUBIN,URINE NEGATIVE (NEGATIVE); GLUCOSE, URINE (UA) 100 mg/dL (NEGATIVE); KETONES,URINE (UA) 15 mg/dL (NEGATIVE); LEUKOCYTE ESTERASE, URINE NEGATIVE (NEGATIVE); NITRITE,URINE POSITIVE (NEGATIVE); OCCULT BLOOD,URINE NEGATIVE (NEGATIVE); PROTEIN,URINE NEGATIVE (NEGATIVE); UROBILINOGEN,URINE 0.2 (NORMAL) E.U./dL (NORMAL)
[2021-05-01 17:02] LABS: BACTERIA,URINE Few /HPF (None Seen); CLARITY,URINE CLEAR (CLEAR); MUCUS,URINE Few Strands; RBC,URINE 0-5 /HPF (0-5); SQUAMOUS EPITHELIAL CELL,UR FEW Squamous (<= Few); WBC,URINE 0-3 /HPF (0-5)
--- NOTE | 2021-05-01 17:50 | PROVIDER PROGRESS NOTE ---
Assessment/Plan - Problem List (1) Abnormal abdominal CT scan Assessment/Plan: Patient came in with abdominal pain.. MRCP was suggestive of biloma. This led to CT scan which was suggestive of the possibility of a biloma and MRCP was suggested. This has been discussed with surgery, who recommends ERCP Had previously planned to have patient go to [facility] for ERCP then return to us, however, procedures at [facility] were canceled so this plan had to be aborted. Spoke with Dr Black Who recommended that since we did not do the ERCP, try to arrange for interventional radiology drain placement to temporize followed by an outpatient ERCP once procedure's were able to again. Discussed with our interventional radiologist to see if the drain can be placed so that patient can then have ERCP done as an outpatient, as recommended by GI, however informed by Dr. Link that we cannot perform this procedure here as it should be performed in the [facility]. Then attempted to orchestrate a plan to send patient to [facility] for outpatient interventional radiology drain placement, have patient return to us, then discharge on oral antibiotics with referral to GI at [facility]. Today spoke with radiologist at [facility] who does not feel that drainage is neither feasible nor necessary. So at this point, plan would be to d/c home then outpt ERCP. As of yesterday she was unable to tolerate food so she was started on a clear liquid diet. Because of this, I ordered an abdominal ultrasound so that we can compare the findings on ultrasound to the MRCP. The thought process being that if the abdominal ultrasound shows no increased fluid collection and if the patient was doing well clinically, and she can potentially discharge home and have the ERCP done as an outpatient. On the other hand if the scan shows worsening, we may need to proceed with transfer for ERCP. Incidentally, her white blood cell count also increased today to 13 which was previously normal. I am checking a urinalysis to see if she is developing a UTI, but if this continues to trend upward and there is no other evidence of infection elsewhere, she may need to have the ERCP for definitive treatment regardless of her ability to tolerate food. I will also order hepatic function panel to repeat bilirubin for tomorrow morning's labs. If she is able to tolerate food, and the ultrasound looks good, and the WBCs are improving tomorrow, she can likely discharge home on oral antibiotics and follow-up for outpatient ERCP at [facility]. (2) Acute metabolic encephalopathy Assessment/Plan: Resolved (3) Dementia Qualifiers: Dementia type: associated with other underlying disease Dementia behavioral disturbance: without behavioral disturbance Qualified Code(s): F02.80 - Dementia in other diseases classified elsewhere without behavioral disturbance Assessment/Plan: Stable (4) Type II diabetes mellitus with complication, uncontrolled Assessment/Plan: Stable - Current Meds Current Meds: Current Medications Generic Name Dose Route Start Last Admin Trade Name Freq PRN Reason Stop Dose Admin Diltiazem HCl 240 mg 04/25/21 09:00 05/01/21 08:14 Diltiazem Cd 240 Mg Capsule PO 240 mg DAILY CARLOS Administration Docusate Sodium 100 mg 04/25/21 09:00 05/01/21 10:18 Docusate Sodium 100 Mg Capsule PO Not Given BID CARLOS Enoxaparin Sodium 40 mg 04/26/21 09:00 05/01/21 08:17 Enoxaparin 40 Mg/0.4 Ml Syringe SUBQ 40 mg DAILY CARLOS Administration Promethazine HCl 25 mg/ Sodium 51 mls @ 100 mls/hr 04/28/21 14:47 04/30/21 13:04 Chloride IV Infused Q6H PRN Infusion Nausea / Vomiting Insulin Aspart 1 - 5 unit 04/30/21 12:00 05/01/21 16:51 Insulin Aspart 300 Unit/3 Ml Pen SUBQ 1 unit 0800,1200,1700,2100 CARLOS Administration Protocol Insulin Glargine 5 unit 04/24/21 08:00 05/01/21 08:14 Insulin Glargine 300 Unit/3 Ml Pen SUBQ 5 unit QDBREAKFAST CARLOS Administration Levofloxacin 750 mg 04/27/21 11:00 05/01/21 08:36 Levofloxacin 250 Mg Tablet PO 750 mg DAILY CARLOS Administration Metronidazole 500 mg 04/28/21 21:00 05/01/21 13:26 Metronidazole 250 Mg Tablet PO 500 mg Q8H CARLOS Administration Ondansetron HCl 4 mg 04/24/21 03:54 04/29/21 16:04 Ondansetron Odt 4 Mg Tablet TL 4 mg Q6HR PRN Administration Nausea / Vomiting Ondansetron HCl 4 mg 04/24/21 03:54 05/01/21 11:46 Ondansetron 4 Mg/2 Ml Vial IVP 4 mg Q6HR PRN Administration Nausea / Vomiting Oxycodone HCl 5 mg 04/24/21 03:54 04/25/21 15:50 Oxycodone 5 Mg Tablet PO 5 mg Q4HR PRN Administration Pain 5 to 7 Pravastatin Sodium 40 mg 04/25/21 21:00 04/30/21 21:05 Pravastatin 40 Mg Tablet PO 40 mg QPM CARLOS Administration Multivit/Folic Acid/Iron 1 tab 04/24/21 08:00 05/01/21 11:47 Vitamin Tablet PO 1 tab DAILYWM CARLOS Administration Prochlorperazine Edisylate 10 mg 04/28/21 11:29 04/30/21 08:28 Prochlorperazine 10 Mg/2 Ml Vial IVP 10 mg Q6HR PRN Administration Nausea / Vomiting Saccharomyces Boulardii 250 mg 05/01/21 17:00 05/01/21 16:51 Saccharomyces Boulardii 250 Mg Capsule PO 250 mg BIDWM CARLOS Administration Sodium Chloride 10 ml 04/24/21 03:54 04/30/21 12:34 Sodium Chloride Flush 0.9% 10 Ml Syringe IVP 10 ml PRN PRN Administration NEEDED PER PROVIDER ORDERS Sodium Chloride 10 ml 04/24/21 09:00 05/01/21 16:52 Sodium Chloride Flush 0.9% 10 Ml Syringe IVP 10 ml 0100,0900,1700 CARLOS Administration Thiamine HCl 100 mg 04/24/21 09:00 05/01/21 11:47 Thiamine 100 Mg Tablet PO 100 mg DAILY CARLOS Administration Zolpidem Tartrate 5 mg 04/27/21 17:39 04/30/21 21:23 Zolpidem 5 Mg Tablet PO 5 mg QPM PRN Administration Insomnia - Lab Result Fish Bone Diagrams: 05/01/21 06:25 04/30/21 05:35 - EKG Results EKG Interpreted Independently: Yes - Additional Planning My Orders: My Active Orders 05/01/21 07:13 Abdomen Limited [US] Routine 05/01/21 07:14 NPO [DIET] 05/01/21 15:02 Straight Catheter Insertion [RC] ONCE 05/01/21 16:15 CUL, URINE [RM] Routine 05/01/21 17:00 Saccharomyces Boulardii [Florastor] 250 mg PO BIDWM 05/02/21 05:00 CBC W/O DIFF (HEMOGRAM) [HEME] DAILYLAB 05/02/21 08:00 Multivitamin W/Minerals [Theragran M] 1 tab PO DAILYWM Consult/Specialty: Gastroenterology Subjective - Subjective Patient Reports: Feeling Better (wants to try eating) Objective Vital Signs: Vital Signs - 24 hr 05/01/21 05/01/21 05/01/21 00:00 08:00 15:45 Temperature 36.7 C 36.9 C 36.8 C Heart Rate [ 87 95 92 Brachial] Respiratory 16 16 16 Rate Blood Pressure 121/61 136/72 H 139/67 H [Right Brachial artery] O2 Saturation 95 94 94 Oxygen O2 Source Room air I&O (Last 24 Hrs): Intake and Output Totals x24h 04/29/21 04/30/21 05/01/21 23:59 23:59 23:59 Intake Total 810 728 540 Output Total 714 890 9168 Balance 335 328 -960 General: Alert, Oriented x3 Cardiovascular: Regular rate, Normal S1, Normal S2 Respiratory: Chest non-tender, No respiratory distress, Breath sounds nml Abdomen: Normal bowel sounds, No tenderness Skin: No rashes - Results Results: Laboratory Results WBC 13.2 x10^3/uL (4.8-10.8) H 05/01/21 06:25 Corrected WBC Cancelled 04/24/21 01:02 RBC 3.68 10^6/uL (4.20-5.40) L 05/01/21 06:25 Hgb 12.1 g/dL (12.0-16.0) 05/01/21 06:25 Hct 35.0 % (37.0-47.0) L 05/01/21 06:25 MCV 95.1 fL (81.0-99.0) 05/01/21 06:25 MCH 32.9 pg (27.0-31.0) H 05/01/21 06:25 MCHC 34.6 g/dL (32.0-36.0) 05/01/21 06:25 RDW 12.9 % (12.0-15.0) 05/01/21 06:25 Plt Count 308 10^3/uL (130-450) 05/01/21 06:25 MPV 9.6 fL (7.9-10.8) 05/01/21 06:25 Neut # (Auto) 8.2 10^3/uL (1.5-6.6) H 04/28/21 05:27 Lymph # (Auto) 1.4 10^3/uL (1.5-3.5) L 04/28/21 05:27 Baker # (Auto) 1.2 10^3/uL (0.0-1.0) H 04/28/21 05:27 Eos # (Auto) 0.1 10^3/uL (0.0-0.7) 04/28/21 05:27 Baso # (Auto) 0.0 10^3/uL (0.0-0.1) 04/28/21 05:27 Absolute Nucleated RBC 0.00 x10^3/uL 04/28/21 05:27 Total Counted Cancelled 04/24/21 01:02 Band Neuts % (Manual) Cancelled 04/24/21 01:02 Reactive Lymphs % (Man) Cancelled 04/24/21 01:02 Abnorm Lymph % (Manual) Cancelled 04/24/21 01:02 Metamyelocytes % Cancelled 04/24/21 01:02 Myelocytes % Cancelled 04/24/21 01:02 Promyelocytes % Cancelled 04/24/21 01:02 Blast Cells % Cancelled 04/24/21 01:02 Plasma Cell % (Manual) Cancelled 04/24/21 01:02 Other Cells % Cancelled 04/24/21 01:02 Nucleated RBC % 0.0 /100WBC 04/28/21 05:27 Neutrophils # (Manual) Cancelled 04/24/21 01:02 Lymphocytes # (Manual) Cancelled 04/24/21 01:02 Monocytes # (Manual) Cancelled 04/24/21 01:02 Eosinophils # (Manual) Cancelled 04/24/21 01:02 Basophils # (Manual) Cancelled 04/24/21 01:02 Nucleated RBCs Cancelled 04/24/21 01:02 Differential Comment Cancelled 04/24/21 01:02 Manual Slide Review Cancelled 04/24/21 01:02 WBC Morphology Cancelled 04/24/21 01:02 Platelet Estimate Cancelled 04/24/21 01:02 Platelet Morphology Cancelled 04/24/21 01:02 RBC Morph Micro Appear Cancelled 04/24/21 01:02 Sodium 135 mmol/L (135-145) 04/30/21 05:35 Potassium 3.2 mmol/L (3.5-5.0) L 04/30/21 05:35 Chloride 98 mmol/L (101-111) L 04/30/21 05:35 Carbon Dioxide 26 mmol/L (21-32) 04/30/21 05:35 Anion Gap 11.0 (6-13) 04/30/21 05:35 BUN 12 mg/dL (6-20) 04/30/21 05:35 Creatinine 0.6 mg/dL (0.4-1.0) 04/30/21 05:35 Estimated GFR (MDRD) 97 (>89) 04/30/21 05:35 Glucose 174 mg/dL (70-100) H 04/30/21 05:35 Estimat Average Glucose 146 mg/dL (70-100) H 04/24/21 12:45 Hemoglobin A1c % 6.7 % (4.27-6.07) H 04/24/21 12:45 Lactic Acid 1.9 mmol/L (0.5-2.2) 04/24/21 07:36 Calcium 8.4 mg/dL (8.5-10.3) L 04/30/21 05:35 Total Bilirubin 0.8 mg/dL (0.2-1.0) 04/30/21 05:35 AST 13 IU/L (10-42) 04/30/21 05:35 ALT 14 IU/L (10-60) 04/30/21 05:35 Alkaline Phosphatase 66 IU/L (42-121) 04/30/21 05:35 Ammonia 16.1 umol/L (7-35) 04/25/21 06:48 Troponin I High Sens 21.7 ng/L (2.3-14.8) H* 04/24/21 01:02 Total Protein 5.6 g/dL (6.7-8.2) L 04/30/21 05:35 Albumin 2.7 g/dL (3.2-5.5) L 04/30/21 05:35 Globulin 2.9 g/dL (2.1-4.2) 04/30/21 05:35 Albumin/Globulin Ratio 0.9 (1.0-2.2) L 04/30/21 05:35 Lipase 19 U/L (22-51) L 04/24/21 01:02 Urine Color DARK YELLOW 05/01/21 16:15 Urine Clarity CLEAR (CLEAR) 05/01/21 16:15 Urine pH 6.0 PH (5.0-7.5) 05/01/21 16:15 Ur Specific Dodge 1.025 (1.002-1.030) 05/01/21 16:15 Urine Protein NEGATIVE mg/dL (NEGATIVE) 05/01/21 16:15 Urine Glucose (UA) 100 mg/dL (NEGATIVE) H 05/01/21 16:15 Urine Ketones 15 mg/dL (NEGATIVE) H 05/01/21 16:15 Urine Occult Blood NEGATIVE (NEGATIVE) 05/01/21 16:15 Urine Nitrite POSITIVE (NEGATIVE) H 05/01/21 16:15 Urine Bilirubin NEGATIVE (NEGATIVE) 05/01/21 16:15 Urine Urobilinogen 0.2 (NORMAL) E.U./dL (NORMAL) 05/01/21 16:15 Ur Leukocyte Esterase NEGATIVE (NEGATIVE) 05/01/21 16:15 Urine RBC 0-5 /HPF (0-5) 05/01/21 16:15 Urine WBC 0-3 /HPF (0-5) 05/01/21 16:15 Ur Squamous Epith Cells FEW Squamous (<= Few) 05/01/21 16:15 Urine Bacteria Few /HPF (None Seen) 05/01/21 16:15 Urine Mucus Few Strands 05/01/21 16:15 Ur Microscopic Review INDICATED 05/01/21 16:15 Urine Culture Comments INDICATED 05/01/21 16:15 Urine Sodium 70.0 mmol/L 04/24/21 01:15 Nasal Adenovirus (PCR) NOT DETECTED 04/29/21 20:25 Nasal B. parapertussis DNA (PCR) NOT DETECTED 04/29/21 20:25 Nasal Coronavir 229E PCR NOT DETECTED 04/29/21 20:25 Nasal Coronavir HKU1 PCR NOT DETECTED 04/29/21 20:25 Nasal Coronavir NL63 PCR NOT DETECTED 04/29/21 20:25 Nasal Coronavir OC43 PCR NOT DETECTED 04/29/21 20:25 Nasal Enterovir/Rhinovir PCR NOT DETECTED 04/29/21 20:25 Nasal Influenza B PCR NOT DETECTED 04/29/21 20:25 Nasal Influenza A PCR NOT DETECTED 04/29/21 20:25 Nasal Parainfluen 1 PCR NOT DETECTED 04/29/21 20:25 Nasal Parainfluen 2 PCR NOT DETECTED 04/29/21 20:25 Nasal Parainfluen 3 PCR NOT DETECTED 04/29/21 20:25 Nasal Parainfluen 4 PCR NOT DETECTED 04/29/21 20:25 Nasal RSV (PCR) NOT DETECTED 04/29/21 20:25 Nasal B.pertussis DNA PCR NOT DETECTED 04/29/21 20:25 Nasal C.pneumoniae (PCR) NOT DETECTED 04/29/21 20:25 Gregorio Human Metapneumo PCR NOT DETECTED 04/29/21 20:25 Nasal M.pneumoniae (PCR) NOT DETECTED 04/29/21 20:25 Nasal SARS-CoV-2 (PCR) NOT DETECTED 04/29/21 20:25 SARS-CoV-2 (PCR) NOT DETECTED 04/29/21 10:20 Slides for Path Review Cancelled 04/24/21 01:02 ABX Reporting Has patient been on IV antibiotics over the past 48 hours?: Yes Current Medications - Current Medications Current Medications: Current Medications Generic Name Dose Route Start Last Admin Trade Name Freq PRN Reason Stop Dose Admin Diltiazem HCl 240 mg 04/25/21 09:00 05/01/21 08:14 Diltiazem Cd 240 Mg Capsule PO 240 mg DAILY CARLOS Administration Docusate Sodium 100 mg 04/25/21 09:00 05/01/21 10:18 Docusate Sodium 100 Mg Capsule PO Not Given BID CARLOS Enoxaparin Sodium 40 mg 04/26/21 09:00 05/01/21 08:17 Enoxaparin 40 Mg/0.4 Ml Syringe SUBQ 40 mg DAILY CARLOS Administration Promethazine HCl 25 mg/ Sodium 51 mls @ 100 mls/hr 04/28/21 14:47 04/30/21 13:04 Chloride IV Infused Q6H PRN Infusion Nausea / Vomiting Insulin Aspart 1 - 5 unit 04/30/21 12:00 05/01/21 16:51 Insulin Aspart 300 Unit/3 Ml Pen SUBQ 1 unit 0800,1200,1700,2100 CARLOS Administration Protocol Insulin Glargine 5 unit 04/24/21 08:00 05/01/21 08:14 Insulin Glargine 300 Unit/3 Ml Pen SUBQ 5 unit QDBREAKFAST CARLOS Administration Levofloxacin 750 mg 04/27/21 11:00 05/01/21 08:36 Levofloxacin 250 Mg Tablet PO 750 mg DAILY CARLOS Administration Metronidazole 500 mg 04/28/21 21:00 05/01/21 13:26 Metronidazole 250 Mg Tablet PO 500 mg Q8H CARLOS Administration Ondansetron HCl 4 mg 04/24/21 03:54 04/29/21 16:04 Ondansetron Odt 4 Mg Tablet TL 4 mg Q6HR PRN Administration Nausea / Vomiting Ondansetron HCl 4 mg 04/24/21 03:54 05/01/21 11:46 Ondansetron 4 Mg/2 Ml Vial IVP 4 mg Q6HR PRN Administration Nausea / Vomiting Oxycodone HCl 5 mg 04/24/21 03:54 04/25/21 15:50 Oxycodone 5 Mg Tablet PO 5 mg Q4HR PRN Administration Pain 5 to 7 Pravastatin Sodium 40 mg 04/25/21 21:00 04/30/21 21:05 Pravastatin 40 Mg Tablet PO 40 mg QPM CARLOS Administration Multivit/Folic Acid/Iron 1 tab 04/24/21 08:00 05/01/21 11:47 Vitamin Tablet PO 1 tab DAILYWM CARLOS Administration Prochlorperazine Edisylate 10 mg 04/28/21 11:29 04/30/21 08:28 Prochlorperazine 10 Mg/2 Ml Vial IVP 10 mg Q6HR PRN Administration Nausea / Vomiting Saccharomyces Boulardii 250 mg 05/01/21 17:00 05/01/21 16:51 Saccharomyces Boulardii 250 Mg Capsule PO 250 mg BIDWM CARLOS Administration Sodium Chloride 10 ml 04/24/21 03:54 04/30/21 12:34 Sodium Chloride Flush 0.9% 10 Ml Syringe IVP 10 ml PRN PRN Administration NEEDED PER PROVIDER ORDERS Sodium Chloride 10 ml 04/24/21 09:00 05/01/21 16:52 Sodium Chloride Flush 0.9% 10 Ml Syringe IVP 10 ml 0100,0900,1700 CARLOS Administration Thiamine HCl 100 mg 04/24/21 09:00 05/01/21 11:47 Thiamine 100 Mg Tablet PO 100 mg DAILY CARLOS Administration Zolpidem Tartrate 5 mg 04/27/21 17:39 04/30/21 21:23 Zolpidem 5 Mg Tablet PO 5 mg QPM PRN Administration Insomnia
[2021-05-01] MEDS: ONDANSETRON ODT 4 MG TABLET TL PRN (19:53)
[2021-05-01] MEDS: NITROFURANTOIN MACRO 100 MG CAPSULE PO SCH (20:52)
[2021-05-01] MEDS: ZOLPIDEM 5 MG TABLET PO PRN (20:52)
[2021-05-01] MEDS: PRAVASTATIN 40 MG TABLET PO SCH (20:52)
[2021-05-02] MEDS: metroNIDAZOLE 250 MG TABLET PO SCH (04:56)
[2021-05-02 05:48] LABS: HCT - HEMATOCRIT 39.2 % (37.0-47.0); HGB - HEMOGLOBIN 13.3 g/dL (12.0-16.0); MEAN CORPUSCULAR HEMOGLOBIN 32.3 pg (27.0-31.0); MEAN CORPUSCULAR HGB CONC 33.9 g/dL (32.0-36.0); MEAN CORPUSCULAR VOLUME 95.1 fL (81.0-99.0); MEAN PLATELET VOLUME 9.8 fL (7.9-10.8); RED BLOOD COUNT 4.12 10^6/uL (4.20-5.40); RED CELL DISTRIBUTION WIDTH 12.9 % (12.0-15.0); WHITE BLOOD COUNT 20.2 x10^3/uL (4.8-10.8)
[2021-05-02 06:17] LABS: ALBUMIN 3.1 g/dL (3.2-5.5); BILIRUBIN,DIRECT 0.2 mg/dL (0.1-0.5); BILIRUBIN,TOTAL 1.1 mg/dL (0.2-1.0); TOTAL PROTEIN 6.2 g/dL (6.7-8.2)
[2021-05-02] MEDS: INSULIN ASPART 300 UNIT/3 ML PEN SUBQ SCH ×4 (08:08→21:26)
[2021-05-02] MEDS: INSULIN GLARGINE 300 UNIT/3 ML PEN SUBQ SCH (08:11)
[2021-05-02] MEDS: SODIUM CHLORIDE FLUSH 0.9% 10 ML SYRINGE IVP SCH ×2 (08:16→17:09)
[2021-05-02] MEDS: SACCHAROMYCES BOULARDII 250 MG CAPSULE PO SCH ×2 (08:20→17:09)
[2021-05-02] MEDS: PRENATAL VITAMIN TABLET PO SCH (08:20)
[2021-05-02] MEDS: MULTIVITAMIN W/MINERALS TABLET PO SCH (08:20)
[2021-05-02] MEDS: diltiaZEM CD 240 MG CAPSULE PO SCH (08:21)
[2021-05-02] MEDS: THIAMINE 100 MG TABLET PO SCH (08:21)
[2021-05-02] MEDS: ENOXAPARIN 40 MG/0.4 ML SYRINGE SUBQ SCH (08:24)
[2021-05-02 08:51] LABS: ALBUMIN 2.9 g/dL (3.2-5.5); ALBUMIN/GLOBULIN RATIO 0.9 (1.0-2.2); BILIRUBIN,TOTAL 0.9 mg/dL (0.2-1.0); CALCIUM 8.4 mg/dL (8.5-10.3); CREATININE 0.5 mg/dL (0.4-1.0); POTASSIUM 3.5 mmol/L (3.5-5.0)
[2021-05-02] MEDS ORDERED: PIPERACILLIN/TAZOBACTAM 4.5 GM in SODIUM CHLORIDE 0.9% MINIBAG 100 ML IV ONE (09:00)
--- NOTE | 2021-05-02 09:43 | Ultrasound Report ---
PROCEDURE: Abdomen Limited INDICATIONS: Nausea, f/u size of possible Biloma on MRCP TECHNIQUE: Real-time focused scanning was performed of the abdomen, with image documentation. COMPARISON: Correlation is made with prior MRCP, 04/27/[address], 04/24/2021. FINDINGS: This patient is status post cholecystectomy. Within the gallbladder fossa, there is a mini sheri hypoechoic, irregular seen, with an echogenic rim that measures 2.4 x 1.6 x 1.8 cm. No abnormal vascularity can be seen. Scan quality is limited by bowel gas. IMPRESSION: Irregular collection seen within the gallbladder fossa, which appears smaller than on the prior MRCP. This is attributed to a resolving biloma. When clinically appropriate, please consider a follow-up CT study for further evaluation. Reviewed by: Hollis Dobson MD on 05/02/2021 8:42 AM [facility] Approved by: Hollis Dobson MD on 05/02/2021 8:42 AM [facility] Station ID: [id number]
[2021-05-02] MEDS: DOCUSATE SODIUM 100 MG CAPSULE PO SCH ×2 (10:14→21:26)
[2021-05-02] MEDS: NITROFURANTOIN MACRO 100 MG CAPSULE PO SCH (10:14)
[2021-05-02] MEDS: SENNA 8.6 MG TABLET PO SCH (10:14)
[2021-05-02] MEDS: PIPERACILLIN/TAZOBACTAM 4.5 GM in SODIUM CHLORIDE 0.9% MINIBAG 100 ML IV SCH ×2 (13:01→21:26)
[2021-05-02] MEDS: SODIUM CHLORIDE FLUSH 0.9% 10 ML SYRINGE IVP PRN (13:01)
[2021-05-02] MEDS: ONDANSETRON ODT 4 MG TABLET TL PRN (13:09)
--- NOTE | 2021-05-02 15:09 | PROVIDER PROGRESS NOTE ---
Assessment/Plan - Problem List (1) Bile leak, postoperative Assessment/Plan: please see detailed course in previous progress note, in short, pt p/w abd pain due to possible biloma/bilary leak s/p recent lap cholecystectomy outside hospital. GI, surgery, IR has been consulted, consensus was to possibly have IR drainage vs ERCP with intervention by GI, multiple attempts to transfer to different hospitals-no luck so far. plan was to conservatively manage with abx, outpatient f/u with GI for ERCP. -labs today showed worsening leukocytosis, mildly elevated bilirubin, concerning for possible worsening intraabdominal pain infection, so abx switched to zosyn from levaquin, flagyl. - repeat abd US showed smaller fluid collection suggestive of resolving biloma. -will advance diet as tolerated -will defer any transfer or consult for now, likely need GI f/u for outpatient MRCP or repeat CT. -will obtain serial CBC w /diff,, CMP (2) Acute metabolic encephalopathy Assessment/Plan: Resolved (3) Dementia Qualifiers: Dementia type: associated with other underlying disease Dementia behavioral disturbance: without behavioral disturbance Qualified Code(s): F02.80 - [place] in other diseases classified elsewhere without behavioral disturbance Assessment/Plan: Stable (4) Type II diabetes mellitus with complication, uncontrolled Assessment/Plan: Stable - Current Meds Current Meds: Current Medications Generic Name Dose Route Start Last Admin Trade Name Freq PRN Reason Stop Dose Admin Diltiazem HCl 240 mg 04/25/21 09:00 05/02/21 08:21 Diltiazem Cd 240 Mg Capsule PO 240 mg DAILY CARLOS Administration Docusate Sodium 100 mg 04/25/21 09:00 05/02/21 10:14 Docusate Sodium 100 Mg Capsule PO Not Given BID CARLOS Enoxaparin Sodium 40 mg 04/26/21 09:00 05/02/21 08:24 Enoxaparin 40 Mg/0.4 Ml Syringe SUBQ 40 mg DAILY CARLOS Administration Promethazine HCl 25 mg/ Sodium 51 mls @ 100 mls/hr 04/28/21 14:47 04/30/21 13:04 Chloride IV Infused Q6H PRN Infusion Nausea / Vomiting Piperacillin Sod/Tazobactam 100 mls @ 25 mls/hr 05/02/21 13:00 05/02/21 13:01 Sod 4.5 gm/ Sodium Chloride IV 25 mls/hr Q8H CARLOS Administration Insulin Aspart 1 - 5 unit 04/30/21 12:00 05/02/21 11:48 Insulin Aspart 300 Unit/3 Ml Pen SUBQ 1 unit 0800,1200,1700,2100 CARLOS Administration Protocol Insulin Glargine 5 unit 04/24/21 08:00 05/02/21 08:11 Insulin Glargine 300 Unit/3 Ml Pen SUBQ 5 unit QDBREAKFAST CARLOS Administration Multivitamins/Minerals 1 tab 05/02/21 08:00 05/02/21 08:20 Multivitamin W/Minerals Tablet PO 1 tab DAILYWM CARLOS Administration Ondansetron HCl 4 mg 04/24/21 03:54 05/02/21 13:09 Ondansetron Odt 4 Mg Tablet TL 4 mg Q6HR PRN Administration Nausea / Vomiting Ondansetron HCl 4 mg 04/24/21 03:54 05/01/21 11:46 Ondansetron 4 Mg/2 Ml Vial IVP 4 mg Q6HR PRN Administration Nausea / Vomiting Oxycodone HCl 5 mg 04/24/21 03:54 04/25/21 15:50 Oxycodone 5 Mg Tablet PO 5 mg Q4HR PRN Administration Pain 5 to 7 Pravastatin Sodium 40 mg 04/25/21 21:00 05/01/21 20:52 Pravastatin 40 Mg Tablet PO 40 mg QPM CARLOS Administration Multivit/Folic Acid/Iron 1 tab 04/24/21 08:00 05/02/21 08:20 Vitamin Tablet PO 1 tab DAILYWM CARLOS Administration Prochlorperazine Edisylate 10 mg 04/28/21 11:29 04/30/21 08:28 Prochlorperazine 10 Mg/2 Ml Vial IVP 10 mg Q6HR PRN Administration Nausea / Vomiting Saccharomyces Boulardii 250 mg 05/01/21 17:00 05/02/21 08:20 Saccharomyces Boulardii 250 Mg Capsule PO 250 mg BIDWM CARLOS Administration Senna 8.6 - 17.2 mg 05/02/21 09:00 05/02/21 10:14 Senna 8.6 Mg Tablet PO Not Given DAILY CARLOS Sodium Chloride 10 ml 04/24/21 03:54 05/02/21 13:01 Sodium Chloride Flush 0.9% 10 Ml Syringe IVP 10 ml PRN PRN Administration NEEDED PER PROVIDER ORDERS Sodium Chloride 10 ml 04/24/21 09:00 05/02/21 08:16 Sodium Chloride Flush 0.9% 10 Ml Syringe IVP 10 ml 0100,0900,1700 CARLOS Administration Thiamine HCl 100 mg 04/24/21 09:00 05/02/21 08:21 Thiamine 100 Mg Tablet PO 100 mg DAILY CARLOS Administration Zolpidem Tartrate 5 mg 04/27/21 17:39 05/01/21 20:52 Zolpidem 5 Mg Tablet PO 5 mg QPM PRN Administration Insomnia - Lab Result Fish Bone Diagrams: 05/02/21 05:01 05/02/21 08:32 - Additional Planning My Orders: My Active Orders 05/02/21 13:00 Piperacillin/Tazobactam [Zosyn] 4.5 gm Sodium Chloride 0.9% Minibag [Normal Saline 0.9% Minibag] 100 ml IV Q8H 05/03/21 05:00 CMP [COMPREHENSIVE METABOLIC PANEL] [CHEM] DAILYLAB Subjective - Subjective Patient Reports: Nausea (pt was still nauseated, eating poorly, denied abd pain, pt also reported chills, wbc worsened this morning, abx switched to zosyn. abd US resulted smaller fluid collection.), Other Objective Vital Signs: Vital Signs - 24 hr 05/01/21 05/01/21 05/02/21 15:45 23:35 07:20 Temperature 36.8 C 36.9 C 36.6 C Heart Rate [ 92 94 103 H Brachial] Heart Rate [ Monitoring electrodes] Respiratory 16 16 16 Rate Blood Pressure 139/67 H 123/57 L 137/68 H [Right Brachial artery] O2 Saturation 94 96 93 05/02/21 11:11 Temperature 36.7 C Heart Rate [ Brachial] Heart Rate [ 88 Monitoring electrodes] Respiratory 16 Rate Blood Pressure 136/67 H [Right Brachial artery] O2 Saturation 93 Oxygen O2 Source Room air I&O (Last 24 Hrs): Intake and Output Totals x24h 04/30/21 05/01/21 05/02/21 23:59 23:59 23:59 Intake Total 728 540 620 Output Total 400 1500 Balance 328 -960 620 General: Alert, Oriented x3, Cooperative, Mild distress, Other (weak, and frail.) HEENT: Atraumatic, PERRLA, EOMI Neck: Supple, No JVD, No thyromegaly, +2 carotid pulse wo bruit, No LAD Lymphatic: no adenopathy Neuro: Alert, CN 2-12 Grossly Intact, Oriented Times 3 Cardiovascular: Regular rate, Normal S1, Normal S2, No murmurs Respiratory: Chest non-tender, No respiratory distress, Breath sounds nml Abdomen: Normal bowel sounds, Soft, No tenderness, No hepatospenomegaly, No masses Genitourinary: Normal External, No Bleeding, No Discharge, No Tenderness, No Adnexal Mass Rectal: Non-Tender Extremities: No clubbing, No cyanosis, No edema, Normal pulses, No tenderness/swelling Skin: No rashes, No breakdown, No significant lesion - Results Results: Laboratory Results WBC 20.2 x10^3/uL (4.8-10.8) H 05/02/21 05:01 Corrected WBC Cancelled 04/24/21 01:02 RBC 4.12 10^6/uL (4.20-5.40) L 05/02/21 05:01 Hgb 13.3 g/dL (12.0-16.0) 05/02/21 05:01 Hct 39.2 % (37.0-47.0) 05/02/21 05:01 MCV 95.1 fL (81.0-99.0) 05/02/21 05:01 MCH 32.3 pg (27.0-31.0) H 05/02/21 05:01 MCHC 33.9 g/dL (32.0-36.0) 05/02/21 05:01 RDW 12.9 % (12.0-15.0) 05/02/21 05:01 Plt Count 300 10^3/uL (130-450) 05/02/21 05:01 MPV 9.8 fL (7.9-10.8) 05/02/21 05:01 Neut # (Auto) 8.2 10^3/uL (1.5-6.6) H 04/28/21 05:27 Lymph # (Auto) 1.4 10^3/uL (1.5-3.5) L 04/28/21 05:27 [place] # (Auto) 1.2 10^3/uL (0.0-1.0) H 04/28/21 05:27 Eos # (Auto) 0.1 10^3/uL (0.0-0.7) 04/28/21 05:27 Baso # (Auto) 0.0 10^3/uL (0.0-0.1) 04/28/21 05:27 Absolute Nucleated RBC 0.00 x10^3/uL 04/28/21 05:27 Total Counted Cancelled 04/24/21 01:02 Band Neuts % (Manual) Cancelled 04/24/21 01:02 Reactive Lymphs % (Man) Cancelled 04/24/21 01:02 Abnorm Lymph % (Manual) Cancelled 04/24/21 01:02 Metamyelocytes % Cancelled 04/24/21 01:02 Myelocytes % Cancelled 04/24/21 01:02 Promyelocytes % Cancelled 04/24/21 01:02 Blast Cells % Cancelled 04/24/21 01:02 Plasma Cell % (Manual) Cancelled 04/24/21 01:02 Other Cells % Cancelled 04/24/21 01:02 Nucleated RBC % 0.0 /100WBC 04/28/21 05:27 Neutrophils # (Manual) Cancelled 04/24/21 01:02 Lymphocytes # (Manual) Cancelled 04/24/21 01:02 Monocytes # (Manual) Cancelled 04/24/21 01:02 Eosinophils # (Manual) Cancelled 04/24/21 01:02 Basophils # (Manual) Cancelled 04/24/21 01:02 Nucleated RBCs Cancelled 04/24/21 01:02 Differential Comment Cancelled 04/24/21 01:02 Manual Slide Review Cancelled 04/24/21 01:02 WBC Morphology Cancelled 04/24/21 01:02 Platelet Estimate Cancelled 04/24/21 01:02 Platelet Morphology Cancelled 04/24/21 01:02 RBC Morph Micro Appear Cancelled 04/24/21 01:02 Sodium 136 mmol/L (135-145) 05/02/21 08:32 Potassium 3.5 mmol/L (3.5-5.0) 05/02/21 08:32 Chloride 99 mmol/L (101-111) L 05/02/21 08:32 Carbon Dioxide 26 mmol/L (21-32) 05/02/21 08:32 Anion Gap 11.0 (6-13) 05/02/21 08:32 BUN 11 mg/dL (6-20) 05/02/21 08:32 Creatinine 0.5 mg/dL (0.4-1.0) 05/02/21 08:32 Estimated GFR (MDRD) 119 (>89) 05/02/21 08:32 Glucose 166 mg/dL (70-100) H 05/02/21 08:32 Estimat Average Glucose 146 mg/dL (70-100) H 04/24/21 12:45 Hemoglobin A1c % 6.7 % (4.27-6.07) H 04/24/21 12:45 Lactic Acid 0.8 mmol/L (0.5-2.2) 05/02/21 08:32 Calcium 8.4 mg/dL (8.5-10.3) L 05/02/21 08:32 Total Bilirubin 0.9 mg/dL (0.2-1.0) 05/02/21 08:32 Direct Bilirubin 0.2 mg/dL (0.1-0.5) 05/02/21 05:01 AST 13 IU/L (10-42) 05/02/21 08:32 ALT 13 IU/L (10-60) 05/02/21 08:32 Alkaline Phosphatase 72 IU/L (42-121) 05/02/21 08:32 Ammonia 16.1 umol/L (7-35) 04/25/21 06:48 Troponin I High Sens 21.7 ng/L (2.3-14.8) H* 04/24/21 01:02 Total Protein 6.0 g/dL (6.7-8.2) L 05/02/21 08:32 Albumin 2.9 g/dL (3.2-5.5) L 05/02/21 08:32 Globulin 3.1 g/dL (2.1-4.2) 05/02/21 08:32 Albumin/Globulin Ratio 0.9 (1.0-2.2) L 05/02/21 08:32 Lipase 19 U/L (22-51) L 04/24/21 01:02 Urine Color DARK YELLOW 05/01/21 16:15 Urine Clarity CLEAR (CLEAR) 05/01/21 16:15 Urine pH 6.0 PH (5.0-7.5) 05/01/21 16:15 Ur Specific [place] 1.025 (1.002-1.030) 05/01/21 16:15 Urine Protein NEGATIVE mg/dL (NEGATIVE) 05/01/21 16:15 Urine Glucose (UA) 100 mg/dL (NEGATIVE) H 05/01/21 16:15 Urine Ketones 15 mg/dL (NEGATIVE) H 05/01/21 16:15 Urine Occult Blood NEGATIVE (NEGATIVE) 05/01/21 16:15 Urine Nitrite POSITIVE (NEGATIVE) H 05/01/21 16:15 Urine Bilirubin NEGATIVE (NEGATIVE) 05/01/21 16:15 Urine Urobilinogen 0.2 (NORMAL) E.U./dL (NORMAL) 05/01/21 16:15 Ur Leukocyte Esterase NEGATIVE (NEGATIVE) 05/01/21 16:15 Urine RBC 0-5 /HPF (0-5) 05/01/21 16:15 Urine WBC 0-3 /HPF (0-5) 05/01/21 16:15 Ur Squamous Epith Cells FEW Squamous (<= Few) 05/01/21 16:15 Urine Bacteria Few /HPF (None Seen) 05/01/21 16:15 Urine Mucus Few Strands 05/01/21 16:15 Ur Microscopic Review INDICATED 05/01/21 16:15 Urine Culture Comments INDICATED 05/01/21 16:15 Urine Sodium 70.0 mmol/L 04/24/21 01:15 Nasal Adenovirus (PCR) NOT DETECTED 04/29/21 20:25 Nasal B. parapertussis DNA (PCR) NOT DETECTED 04/29/21 20:25 Nasal Coronavir 229E PCR NOT DETECTED 04/29/21 20:25 Nasal Coronavir HKU1 PCR NOT DETECTED 04/29/21 20:25 Nasal Coronavir NL63 PCR NOT DETECTED 04/29/21 20:25 Nasal Coronavir OC43 PCR NOT DETECTED 04/29/21 20:25 Nasal Enterovir/Rhinovir PCR NOT DETECTED 04/29/21 20:25 Nasal Influenza B PCR NOT DETECTED 04/29/21 20:25 Nasal Influenza A PCR NOT DETECTED 04/29/21 20:25 Nasal Parainfluen 1 PCR NOT DETECTED 04/29/21 20:25 Nasal Parainfluen 2 PCR NOT DETECTED 04/29/21 20:25 Nasal Parainfluen 3 PCR NOT DETECTED 04/29/21 20:25 Nasal Parainfluen 4 PCR NOT DETECTED 04/29/21 20:25 Nasal RSV (PCR) NOT DETECTED 04/29/21 20:25 Nasal B.pertussis DNA PCR NOT DETECTED 04/29/21 20:25 Nasal C.pneumoniae (PCR) NOT DETECTED 04/29/21 20:25 [place] Human Metapneumo PCR NOT DETECTED 04/29/21 20:25 Nasal M.pneumoniae (PCR) NOT DETECTED 04/29/21 20:25 Nasal SARS-CoV-2 (PCR) NOT DETECTED 04/29/21 20:25 SARS-CoV-2 (PCR) NOT DETECTED 04/29/21 10:20 Slides for Path Review Cancelled 04/24/21 01:02
[2021-05-02] MEDS: PRAVASTATIN 40 MG TABLET PO SCH (21:26)
[2021-05-02] MEDS: ZOLPIDEM 5 MG TABLET PO PRN (21:54)
[2021-05-03] MEDS: SODIUM CHLORIDE FLUSH 0.9% 10 ML SYRINGE IVP SCH ×3 (01:07→17:06)
[2021-05-03] MEDS: PIPERACILLIN/TAZOBACTAM 4.5 GM in SODIUM CHLORIDE 0.9% MINIBAG 100 ML IV SCH ×3 (04:52→21:12)
[2021-05-03 05:43] LABS: BASOPHILS # (AUTO) 0.1 10^3/uL (0.0-0.1); BASOPHILS % (AUTO) 0.5 %; EOSINOPHILS # (AUTO) 0.1 10^3/uL (0.0-0.7); EOSINOPHILS % (AUTO) 0.7 %; HCT - HEMATOCRIT 37.1 % (37.0-47.0); HGB - HEMOGLOBIN 12.7 g/dL (12.0-16.0); LYMPHOCYTES # (AUTO) 1.6 10^3/uL (1.5-3.5); LYMPHOCYTES % (AUTO) 12.6 %; MEAN CORPUSCULAR HEMOGLOBIN 32.4 pg (27.0-31.0); MEAN CORPUSCULAR HGB CONC 34.2 g/dL (32.0-36.0); MEAN CORPUSCULAR VOLUME 94.6 fL (81.0-99.0); MEAN PLATELET VOLUME 9.9 fL (7.9-10.8); MONOCYTES # (AUTO) 0.8 10^3/uL (0.0-1.0); NEUTROPHILS # (AUTO) 10.2 10^3/uL (1.5-6.6); NEUTROPHILS % (AUTO) 79.7 %; PLT - PLATELET COUNT 349 10^3/uL (130-450); RED BLOOD COUNT 3.92 10^6/uL (4.20-5.40); WHITE BLOOD COUNT 12.8 x10^3/uL (4.8-10.8)
[2021-05-03 05:55] LABS: ALBUMIN 2.9 g/dL (3.2-5.5); BILIRUBIN,TOTAL 0.9 mg/dL (0.2-1.0); CALCIUM 8.3 mg/dL (8.5-10.3); CREATININE 0.5 mg/dL (0.4-1.0); POTASSIUM 3.1 mmol/L (3.5-5.0); TOTAL PROTEIN 5.9 g/dL (6.7-8.2)
[2021-05-03] MEDS ORDERED: POTASSIUM CHLORIDE 20 MEQ TABLET PO ONE (07:31)
[2021-05-03] MEDS: INSULIN ASPART 300 UNIT/3 ML PEN SUBQ SCH ×4 (08:26→21:12)
[2021-05-03] MEDS: INSULIN GLARGINE 300 UNIT/3 ML PEN SUBQ SCH (08:27)
[2021-05-03] MEDS: SACCHAROMYCES BOULARDII 250 MG CAPSULE PO SCH ×2 (08:28→17:06)
[2021-05-03] MEDS: SENNA 8.6 MG TABLET PO SCH (08:28)
[2021-05-03] MEDS: ENOXAPARIN 40 MG/0.4 ML SYRINGE SUBQ SCH (08:29)
[2021-05-03] MEDS: MULTIVITAMIN W/MINERALS TABLET PO SCH (08:29)
[2021-05-03] MEDS: diltiaZEM CD 240 MG CAPSULE PO SCH (08:29)
[2021-05-03] MEDS: DOCUSATE SODIUM 100 MG CAPSULE PO SCH ×2 (08:29→21:12)
[2021-05-03] MEDS: THIAMINE 100 MG TABLET PO SCH (08:29)
[2021-05-03] MEDS: PRENATAL VITAMIN TABLET PO SCH (08:29)
--- NOTE | 2021-05-03 10:29 | PROVIDER PROGRESS NOTE ---
Assessment/Plan - Problem List (1) Bile leak, postoperative Assessment/Plan: please see detailed course in previous progress note, in short, pt p/w abd pain due to possible biloma/bilary leak s/p recent lap cholecystectomy outside hospital. GI, surgery, IR has been consulted, consensus was to possibly have IR drainage vs ERCP with intervention by GI, multiple attempts to transfer to different hospitals-no luck so far. plan was to conservatively manage with abx, outpatient f/u with GI for ERCP. Repeat abd US 05/01 showed smaller fluid collection suggestive of resolving biloma. -clinically stable and pt seems to tolerate diet, wbc trending down, abx switched to zosyn from levaquin, flagyl on 05/02 due to possible concern for ongoing infection, consider d/c with po levaquin/flagyl in 2-3d if pt remains stable. l -will advance diet as tolerated -will defer any transfer or consult for now, likely need GI f/u for outpatient MRCP or repeat CT. -will obtain serial CBC w /diff,, CMP (2) Acute metabolic encephalopathy Assessment/Plan: Resolved (3) Dementia Qualifiers: Dementia type: associated with other underlying disease Dementia behavioral disturbance: without behavioral disturbance Qualified Code(s): F02.80 - Dementia in other diseases classified elsewhere without behavioral disturbance Assessment/Plan: Stable (4) Type II diabetes mellitus with complication, uncontrolled Assessment/Plan: Stable - Current Meds Current Meds: Current Medications Generic Name Dose Route Start Last Admin Trade Name Freq PRN Reason Stop Dose Admin Diltiazem HCl 240 mg 04/25/21 09:00 05/03/21 08:29 Diltiazem Cd 240 Mg Capsule PO 240 mg DAILY CARLOS Administration Docusate Sodium 100 mg 04/25/21 09:00 05/03/21 08:29 Docusate Sodium 100 Mg Capsule PO 100 mg BID CARLOS Administration Enoxaparin Sodium 40 mg 04/26/21 09:00 05/03/21 08:29 Enoxaparin 40 Mg/0.4 Ml Syringe SUBQ 40 mg DAILY CRALOS Administration Promethazine HCl 25 mg/ Sodium 51 mls @ 100 mls/hr 04/28/21 14:47 04/30/21 13:04 Chloride IV Infused Q6H PRN Infusion Nausea / Vomiting Piperacillin Sod/Tazobactam 100 mls @ 25 mls/hr 05/02/21 13:00 05/03/21 04:52 Sod 4.5 gm/ Sodium Chloride IV 25 mls/hr Q8H CARLOS Administration Insulin Aspart 1 - 5 unit 04/30/21 12:00 05/03/21 08:26 Insulin Aspart 300 Unit/3 Ml Pen SUBQ Not Given 0800,1200,1700,2100 [facility] Protocol Insulin Glargine 5 unit 04/24/21 08:00 05/03/21 08:27 Insulin Glargine 300 Unit/3 Ml Pen SUBQ 5 unit QDBREAKFAST CARLOS Administration Multivitamins/Minerals 1 tab 05/02/21 08:00 05/03/21 08:29 Multivitamin W/Minerals Tablet PO 1 tab DAILYWM CARLOS Administration Ondansetron HCl 4 mg 04/24/21 03:54 05/02/21 13:09 Ondansetron Odt 4 Mg Tablet TL 4 mg Q6HR PRN Administration Nausea / Vomiting Ondansetron HCl 4 mg 04/24/21 03:54 05/01/21 11:46 Ondansetron 4 Mg/2 Ml Vial IVP 4 mg Q6HR PRN Administration Nausea / Vomiting Oxycodone HCl 5 mg 04/24/21 03:54 04/25/21 15:50 Oxycodone 5 Mg Tablet PO 5 mg Q4HR PRN Administration Pain 5 to 7 Pravastatin Sodium 40 mg 04/25/21 21:00 05/02/21 21:26 Pravastatin 40 Mg Tablet PO 40 mg QPM CARLOS Administration Multivit/Folic Acid/Iron 1 tab 04/24/21 08:00 05/03/21 08:29 Vitamin Tablet PO 1 tab DAILYWM CARLOS Administration Prochlorperazine Edisylate 10 mg 04/28/21 11:29 04/30/21 08:28 Prochlorperazine 10 Mg/2 Ml Vial IVP 10 mg Q6HR PRN Administration Nausea / Vomiting Saccharomyces Boulardii 250 mg 05/01/21 17:00 05/03/21 08:28 Saccharomyces Boulardii 250 Mg Capsule PO 250 mg BIDWM CARLOS Administration Senna 8.6 - 17.2 mg 05/02/21 09:00 05/03/21 08:28 Senna 8.6 Mg Tablet PO 8.6 mg DAILY CARLOS Administration Sodium Chloride 10 ml 04/24/21 03:54 05/02/21 13:01 Sodium Chloride Flush 0.9% 10 Ml Syringe IVP 10 ml PRN PRN Administration NEEDED PER PROVIDER ORDERS Sodium Chloride 10 ml 04/24/21 09:00 05/03/21 08:30 Sodium Chloride Flush 0.9% 10 Ml Syringe IVP Not Given 0100,0900,1700 CARLOS Thiamine HCl 100 mg 04/24/21 09:00 05/03/21 08:29 Thiamine 100 Mg Tablet PO 100 mg DAILY CARLOS Administration Zolpidem Tartrate 5 mg 04/27/21 17:39 05/02/21 21:54 Zolpidem 5 Mg Tablet PO 5 mg QPM PRN Administration Insomnia - Lab Result Fish Bone Diagrams: 05/03/21 04:30 05/03/21 04:30 - Additional Planning My Orders: My Active Orders 05/02/21 13:00 Piperacillin/Tazobactam [Zosyn] 4.5 gm Sodium Chloride 0.9% Minibag [Normal Saline 0.9% Minibag] 100 ml IV Q8H Subjective - Subjective Patient Reports: Other (pt is still not motivated to move, felt nausea after eating. denied vomiting, wbc improving this morning,) Objective Vital Signs: Vital Signs - 24 hr 05/02/21 05/02/21 05/03/21 11:11 15:44 00:00 Temperature 36.7 C 36.5 C 36.6 C Heart Rate [ 93 85 Brachial] Heart Rate [ 88 Monitoring electrodes] Respiratory 16 16 16 Rate Blood Pressure 136/67 H 142/75 H 132/66 H [Right Brachial artery] O2 Saturation 93 94 93 05/03/21 07:25 Temperature 36.7 C Heart Rate [ Brachial] Heart Rate [ 87 Monitoring electrodes] Respiratory 16 Rate Blood Pressure 141/71 H [Right Brachial artery] O2 Saturation 93 Oxygen O2 Source Room air I&O (Last 24 Hrs): Intake and Output Totals x24h 05/01/21 05/02/21 05/03/21 23:59 23:59 23:59 Intake Total 540 720 380 Output Total 1500 300 Balance -960 720 80 General: Alert, Cooperative, No acute distress, Other (pt was forgetful) HEENT: Atraumatic, PERRLA, EOMI Neck: Supple, No JVD, No thyromegaly, +2 carotid pulse wo bruit, No LAD Lymphatic: no adenopathy Neuro: Alert, Oriented Times 3 Cardiovascular: Regular rate, Normal S1, Normal S2, No murmurs Respiratory: Chest non-tender, No respiratory distress, Breath sounds nml Abdomen: Normal bowel sounds, Soft, No tenderness, No hepatospenomegaly, No masses Genitourinary: Normal External, No Bleeding, No Discharge, No Tenderness, No Adnexal Mass Rectal: Non-Tender Extremities: No clubbing, No cyanosis, No edema, Normal pulses, No tenderness/swelling Skin: No rashes, No breakdown, No significant lesion - Results Results: Laboratory Results WBC 12.8 x10^3/uL (4.8-10.8) H 05/03/21 04:30 Corrected WBC Cancelled 04/24/21 01:02 RBC 3.92 10^6/uL (4.20-5.40) L 05/03/21 04:30 Hgb 12.7 g/dL (12.0-16.0) 05/03/21 04:30 Hct 37.1 % (37.0-47.0) 05/03/21 04:30 MCV 94.6 fL (81.0-99.0) 05/03/21 04:30 MCH 32.4 pg (27.0-31.0) H 05/03/21 04:30 MCHC 34.2 g/dL (32.0-36.0) 05/03/21 04:30 RDW 13.0 % (12.0-15.0) 05/03/21 04:30 Plt Count 349 10^3/uL (130-450) 05/03/21 04:30 MPV 9.9 fL (7.9-10.8) 05/03/21 04:30 Neut # (Auto) 10.2 10^3/uL (1.5-6.6) H 05/03/21 04:30 Lymph # (Auto) 1.6 10^3/uL (1.5-3.5) 05/03/21 04:30 [place] # (Auto) 0.8 10^3/uL (0.0-1.0) 05/03/21 04:30 Eos # (Auto) 0.1 10^3/uL (0.0-0.7) 05/03/21 04:30 Baso # (Auto) 0.1 10^3/uL (0.0-0.1) 05/03/21 04:30 Absolute Nucleated RBC 0.00 x10^3/uL 05/03/21 04:30 Total Counted Cancelled 04/24/21 01:02 Band Neuts % (Manual) Cancelled 04/24/21 01:02 Reactive Lymphs % (Man) Cancelled 04/24/21 01:02 Abnorm Lymph % (Manual) Cancelled 04/24/21 01:02 Metamyelocytes % Cancelled 04/24/21 01:02 Myelocytes % Cancelled 04/24/21 01:02 Promyelocytes % Cancelled 04/24/21 01:02 Blast Cells % Cancelled 04/24/21 01:02 Plasma Cell % (Manual) Cancelled 04/24/21 01:02 Other Cells % Cancelled 04/24/21 01:02 Nucleated RBC % 0.0 /100WBC 05/03/21 04:30 Neutrophils # (Manual) Cancelled 04/24/21 01:02 Lymphocytes # (Manual) Cancelled 04/24/21 01:02 Monocytes # (Manual) Cancelled 04/24/21 01:02 Eosinophils # (Manual) Cancelled 04/24/21 01:02 Basophils # (Manual) Cancelled 04/24/21 01:02 Nucleated RBCs Cancelled 04/24/21 01:02 Differential Comment Cancelled 04/24/21 01:02 Manual Slide Review Cancelled 04/24/21 01:02 WBC Morphology Cancelled 04/24/21 01:02 Platelet Estimate Cancelled 04/24/21 01:02 Platelet Morphology Cancelled 04/24/21 01:02 RBC Morph Micro Appear Cancelled 04/24/21 01:02 Sodium 138 mmol/L (135-145) 05/03/21 04:30 Potassium 3.1 mmol/L (3.5-5.0) L 05/03/21 04:30 Chloride 98 mmol/L (101-111) L 05/03/21 04:30 Carbon Dioxide 28 mmol/L (21-32) 05/03/21 04:30 Anion Gap 12.0 (6-13) 05/03/21 04:30 BUN 15 mg/dL (6-20) 05/03/21 04:30 Creatinine 0.5 mg/dL (0.4-1.0) 05/03/21 04:30 Estimated GFR (MDRD) 119 (>89) 05/03/21 04:30 Glucose 119 mg/dL (70-100) H 05/03/21 04:30 Estimat Average Glucose 146 mg/dL (70-100) H 04/24/21 12:45 Hemoglobin A1c % 6.7 % (4.27-6.07) H 04/24/21 12:45 Lactic Acid 0.8 mmol/L (0.5-2.2) 05/02/21 08:32 Calcium 8.3 mg/dL (8.5-10.3) L 05/03/21 04:30 Total Bilirubin 0.9 mg/dL (0.2-1.0) 05/03/21 04:30 Direct Bilirubin 0.2 mg/dL (0.1-0.5) 05/02/21 05:01 AST 11 IU/L (10-42) 05/03/21 04:30 ALT 10 IU/L (10-60) 05/03/21 04:30 Alkaline Phosphatase 63 IU/L (42-121) 05/03/21 04:30 Ammonia 16.1 umol/L (7-35) 04/25/21 06:48 Troponin I High Sens 21.7 ng/L (2.3-14.8) H* 04/24/21 01:02 Total Protein 5.9 g/dL (6.7-8.2) L 05/03/21 04:30 Albumin 2.9 g/dL (3.2-5.5) L 05/03/21 04:30 Globulin 3.0 g/dL (2.1-4.2) 05/03/21 04:30 Albumin/Globulin Ratio 1.0 (1.0-2.2) 05/03/21 04:30 Lipase 19 U/L (22-51) L 04/24/21 01:02 Urine Color DARK YELLOW 05/01/21 16:15 Urine Clarity CLEAR (CLEAR) 05/01/21 16:15 Urine pH 6.0 PH (5.0-7.5) 05/01/21 16:15 Ur Specific [place] 1.025 (1.002-1.030) 05/01/21 16:15 Urine Protein NEGATIVE mg/dL (NEGATIVE) 05/01/21 16:15 Urine Glucose (UA) 100 mg/dL (NEGATIVE) H 05/01/21 16:15 Urine Ketones 15 mg/dL (NEGATIVE) H 05/01/21 16:15 Urine Occult Blood NEGATIVE (NEGATIVE) 05/01/21 16:15 Urine Nitrite POSITIVE (NEGATIVE) H 05/01/21 16:15 Urine Bilirubin NEGATIVE (NEGATIVE) 05/01/21 16:15 Urine Urobilinogen 0.2 (NORMAL) E.U./dL (NORMAL) 05/01/21 16:15 Ur Leukocyte Esterase NEGATIVE (NEGATIVE) 05/01/21 16:15 Urine RBC 0-5 /HPF (0-5) 05/01/21 16:15 Urine WBC 0-3 /HPF (0-5) 05/01/21 16:15 Ur Squamous Epith Cells FEW Squamous (<= Few) 05/01/21 16:15 Urine Bacteria Few /HPF (None Seen) 05/01/21 16:15 Urine Mucus Few Strands 05/01/21 16:15 Ur Microscopic Review INDICATED 05/01/21 16:15 Urine Culture Comments INDICATED 05/01/21 16:15 Urine Sodium 70.0 mmol/L 04/24/21 01:15 Nasal Adenovirus (PCR) NOT DETECTED 04/29/21 20:25 Nasal B. parapertussis DNA (PCR) NOT DETECTED 04/29/21 20:25 Nasal Coronavir 229E PCR NOT DETECTED 04/29/21 20:25 Nasal Coronavir HKU1 PCR NOT DETECTED 04/29/21 20:25 Nasal Coronavir NL63 PCR NOT DETECTED 04/29/21 20:25 Nasal Coronavir OC43 PCR NOT DETECTED 04/29/21 20:25 Nasal Enterovir/Rhinovir PCR NOT DETECTED 04/29/21 20:25 Nasal Influenza B PCR NOT DETECTED 04/29/21 20:25 Nasal Influenza A PCR NOT DETECTED 04/29/21 20:25 Nasal Parainfluen 1 PCR NOT DETECTED 04/29/21 20:25 Nasal Parainfluen 2 PCR NOT DETECTED 04/29/21 20:25 Nasal Parainfluen 3 PCR NOT DETECTED 04/29/21 20:25 Nasal Parainfluen 4 PCR NOT DETECTED 04/29/21 20:25 Nasal RSV (PCR) NOT DETECTED 04/29/21 20:25 Nasal B.pertussis DNA PCR NOT DETECTED 04/29/21 20:25 Nasal C.pneumoniae (PCR) NOT DETECTED 04/29/21 20:25 Gregorio Human Metapneumo PCR NOT DETECTED 04/29/21 20:25 Nasal M.pneumoniae (PCR) NOT DETECTED 04/29/21 20:25 Nasal SARS-CoV-2 (PCR) NOT DETECTED 04/29/21 20:25 SARS-CoV-2 (PCR) NOT DETECTED 04/29/21 10:20 Slides for Path Review Cancelled 04/24/21 01:02
[2021-05-03] MEDS: PRAVASTATIN 40 MG TABLET PO SCH (21:12)
[2021-05-03] MEDS: ZOLPIDEM 5 MG TABLET PO PRN (22:35)
[2021-05-03] MEDS: FLUCONAZOLE 100 MG TABLET PO SCH (23:41)
[2021-05-04] MEDS: SODIUM CHLORIDE FLUSH 0.9% 10 ML SYRINGE IVP SCH ×3 (01:40→17:00)
[2021-05-04] MEDS: PIPERACILLIN/TAZOBACTAM 4.5 GM in SODIUM CHLORIDE 0.9% MINIBAG 100 ML IV SCH ×3 (05:23→20:36)
--- NOTE | 2021-05-04 07:43 | PROVIDER PROGRESS NOTE ---
Subjective - Prog Note Date Prog Note Date: 05/04/21 Prog Note Time: 18:09 - Subjective Subjective: I am coming back on service. Case is reviewed. Acid Treater reports there is no new events last night. This unfortunate female has been waiting for some type of decision for possible bile leak since April 24. We have been attempting to try and get her out to an outside facility but in spite of numerous efforts and numerous facilities contacted, there is no bed availability. MRCP April 27 has a small fluid collection near the gallbladder fossa. Suspicious for bile leak and/or abscess. Similar to the CAT scan on April 24. While we have been g uided by general surgery input since admission, there is been no formal consult requested by us. Abdominal ultrasound and follow-up May 02 has an irregular collection seen within the gallbladder fossa that appears smaller than on the MRCP. Possibly resolving biloma. She has not had a fever. White cell count was 18.2 on admission and had gone down to 9.9 by April 27 on Levaquin and Flagyl. Antibiotics were stopped on May 01 hoping that we could transition her to oral antibiotics and send her home for outpatient follow-up. However she respected temperature and Zosyn was started. The May 01 urinalysis had positive nitrite and there was a tentative idea that she may have a UTI. In any case that grew out yeast. She was initially started on Macrobid, but transitioned to Zosyn May 02. She continues to be afebrile. Her white cell count is 14.9 today. Her metabolic encephalopathy has resolved. She is back to baseline. Current Medications - Current Medications Current Medications: Active Medications Bacitracin (Bacitracin Zinc Oint 1 Packet) 1 packet TOP PRN PRN PRN Reason: Skin Care Diltiazem HCl (Diltiazem Cd 240 Mg Capsule) 240 mg PO DAILY [facility] Last Admin: 05/03/21 08:29 Dose: 240 mg Documented by: Docusate Sodium (Docusate Sodium 100 Mg Capsule) 100 mg PO BID [facility] Last Admin: 05/03/21 21:12 Dose: 100 mg Documented by: Enoxaparin Sodium (Enoxaparin 40 Mg/0.4 Ml Syringe) 40 mg SUBQ DAILY [facility] Last Admin: 05/03/21 08:29 Dose: 40 mg Documented by: Fluconazole (Fluconazole 100 Mg Tablet) 200 mg PO DAILY [facility] Stop: 05/09/21 09:01 Last Admin: 05/03/21 23:41 Dose: 200 mg Documented by: Promethazine HCl 25 mg/ Sodium (Chloride) 51 mls @ 100 mls/hr IV Q6H PRN PRN Reason: Nausea / Vomiting Last Infusion: 04/30/21 13:04 Dose: Infused Documented by: Piperacillin Sod/Tazobactam (Sod 4.5 gm/ Sodium Chloride) 100 mls @ 25 mls/hr IV Q8H [facility] Last Admin: 05/04/21 05:23 Dose: 25 mls/hr Documented by: Insulin Aspart (Insulin Aspart 300 Unit/3 Ml Pen) 1 - 5 unit SUBQ 0800,1200,1700,2100 [facility]; Protocol Last Admin: 05/03/21 21:12 Dose: 1 unit Documented by: Insulin Glargine (Insulin Glargine 300 Unit/3 Ml Pen) 5 unit SUBQ QDBREAKFAST [facility] Last Admin: 05/03/21 08:27 Dose: 5 unit Documented by: Morphine Sulfate (Morphine 2 Mg/Ml Carpuject) 2 mg IVP Q2HR PRN PRN Reason: Pain 8 to 10 Multivitamins/Minerals (Multivitamin W/Minerals Tablet) 1 tab PO DAILYWM [facility] Last Admin: 05/03/21 08:29 Dose: 1 tab Documented by: Ondansetron HCl (Ondansetron Odt 4 Mg Tablet) 4 mg TL Q6HR PRN PRN Reason: Nausea / Vomiting Last Admin: 05/02/21 13:09 Dose: 4 mg Documented by: Ondansetron HCl (Ondansetron 4 Mg/2 Ml Vial) 4 mg IVP Q6HR PRN PRN Reason: Nausea / Vomiting Last Admin: 05/01/21 11:46 Dose: 4 mg Documented by: Oxycodone HCl (Oxycodone 5 Mg Tablet) 5 mg PO Q4HR PRN PRN Reason: Pain 5 to 7 Last Admin: 04/25/21 15:50 Dose: 5 mg Documented by: Pravastatin Sodium (Pravastatin 40 Mg Tablet) 40 mg PO QPM [facility] Last Admin: 05/03/21 21:12 Dose: 40 mg Documented by: Multivit/Folic Acid/Iron ( Vitamin Tablet) 1 tab PO DAILYWM [facility] Last Admin: 05/03/21 08:29 Dose: 1 tab Documented by: Prochlorperazine Edisylate (Prochlorperazine 10 Mg/2 Ml Vial) 10 mg IVP Q6HR PRN PRN Reason: Nausea / Vomiting Last Admin: 04/30/21 08:28 Dose: 10 mg Documented by: Saccharomyces Boulardii (Saccharomyces Boulardii 250 Mg Capsule) 250 mg PO BIDWM [facility] Last Admin: 05/03/21 17:06 Dose: 250 mg Documented by: Senna (Senna 8.6 Mg Tablet) 8.6 - 17.2 mg PO DAILY [facility] Last Admin: 05/03/21 08:28 Dose: 8.6 mg Documented by: Sodium Chloride (Sodium Chloride Flush 0.9% 10 Ml Syringe) 10 ml IVP PRN PRN PRN Reason: NEEDED PER PROVIDER ORDERS Last Admin: 05/02/21 13:01 Dose: 10 ml Documented by: Sodium Chloride (Sodium Chloride Flush 0.9% 10 Ml Syringe) 10 ml IVP 0100,0900,1700 [facility] Last Admin: 05/04/21 01:40 Dose: Not Given Documented by: Thiamine HCl (Thiamine 100 Mg Tablet) 100 mg PO DAILY [facility] Last Admin: 05/03/21 08:29 Dose: 100 mg Documented by: Zolpidem Tartrate (Zolpidem 5 Mg Tablet) 5 mg PO QPM PRN PRN Reason: Insomnia Last Admin: 05/03/21 22:35 Dose: 5 mg Documented by: Pravastatin [Pravachol] 40 mg PO DAILY 12/13/15 diltiaZEM CD [Cardizem Cd] 240 mg PO DAILY 12/13/15 metFORMIN [Glucophage] 500 mg PO DAILY 12/13/15 LORazepam [Lorazepam] 2 mg PO QPM 09/26/19 Docusate Sodium 100Mg Capsule [Colace 100Mg Capsule] 100 mg PO BID 04/24/21 Objective - Vital Signs/Intake & Output Reviewed Vital Signs: Yes Vital Signs: Vital Signs x48h Temp Pulse Resp BP Pulse Ox 05/04/21 07:21 36.6 C 89 16 135/72 H 93 05/04/21 00:15 36.8 C 93 18 137/74 H 94 Intake & Output: Intake & Output 05/01/21 05/02/21 05/03/2121 23:59 23:59 23:59 23:59 Intake Total 540 720 840 150 Output Total 1500 500 450 Balance -960 720 340 -300 - Objective General Appearance: positive: No acute distress, Alert, Other (Nausea is her main complaint, just does not want to eat. Cannot tell if it is from GI disease, or all the medications were giving her. Most likely a combination of both.) Eyes Bilateral: positive: PERRL, EOMI ENT: positive: No signs of dehydration Neck: positive: No JVD Respiratory: positive: Chest non-tender. negative: Wheezes, Rales, Rhonchi Cardiovascular: positive: Regular rate & rhythm, Systolic murmur. negative: Gallop/S4, Friction rub Abdomen: positive: Nml bowel sounds, No distention, Tenderness (Mild, epigastrium.). negative: Guarding, Rebound Skin: positive: Warm, Dry, Pallor Neurologic/Psychiatric: positive: Oriented x3, CN's nml (2-12), Motor nml (To the bathroom, gait belt being used.) - Lab Results Fish Bones: 05/04/21 07:56 05/04/21 07:56 Other Labs: Lab Results x24hrs 05/04/21 05/03/21 05/03/21 Range/Units 07:19 20:12 16:55 POC Whole Bld Glucose 157 H 165 H 194 H (70 - 100) mg/dL 05/03/21 05/03/21 05/02/21 Range/Units 11:13 07:20 20:26 POC Whole Bld Glucose 227 H 121 H 135 H (70 - 100) mg/dL 05/02/21 05/02/21 05/02/21 Range/Units 16:48 11:15 07:17 POC Whole Bld Glucose 145 H 141 H 169 H (70 - 100) mg/dL 05/01/21 05/01/21 05/01/21 Range/Units 21:03 16:31 11:10 POC Whole Bld Glucose 105 H 150 H 152 H (70 - 100) mg/dL 05/01/21 04/30/21 04/30/21 Range/Units 07:45 20:28 16:42 POC Whole Bld Glucose 170 H 232 H 172 H (70 - 100) mg/dL 04/30/21 04/30/21 04/29/21 Range/Units 10:52 07:35 20:50 POC Whole Bld Glucose 166 H 162 H 143 H (70 - 100) mg/dL 04/29/21 04/29/21 04/29/21 Range/Units 17:14 11:53 07:16 POC Whole Bld Glucose 140 H 221 H 159 H (70 - 100) mg/dL 04/28/21 04/28/21 04/28/21 Range/Units 20:16 16:49 11:13 POC Whole Bld Glucose 251 H 148 H 147 H (70 - 100) mg/dL 04/28/21 04/27/21 04/27/21 Range/Units 07:18 20:32 16:51 POC Whole Bld Glucose 163 H 144 H 147 H (70 - 100) mg/dL 04/27/21 04/27/21 04/26/21 Range/Units 11:27 07:37 20:35 POC Whole Bld Glucose 178 H 166 H 218 H (70 - 100) mg/dL 04/26/21 04/26/21 04/26/21 Range/Units 16:46 11:26 08:00 POC Whole Bld Glucose 170 H 174 H 191 H (70 - 100) mg/dL 04/25/21 04/25/21 04/25/21 Range/Units 20:50 16:47 11:30 POC Whole Bld Glucose 133 H 146 H 180 H (70 - 100) mg/dL 04/25/21 04/24/21 04/24/21 Range/Units 06:21 20:35 16:27 POC Whole Bld Glucose 140 H 145 H 118 H (70 - 100) mg/dL 04/24/21 04/24/21 04/24/21 Range/Units 10:59 07:25 00:22 POC Whole Bld Glucose 194 H 169 H 228 H (70 - 100) mg/dL ABX Reporting Has patient been on IV antibiotics over the past 48 hours?: Yes Assessment/Plan - Problem List (1) Bile leak, postoperative Impression: please see detailed course in previous progress note, in short, pt p/w abd pain due to possible biloma/bilary leak s/p recent lap cholecystectomy outside hospital. GI, surgery, IR has been consulted, consensus was to possibly have IR drainage vs ERCP with intervention by GI, multiple attempts to transfer to different hospitals-no luck so far. plan was to conservatively manage with abx, outpatient f/u with GI for ERCP. Repeat abd US 05/01 showed smaller fluid collection suggestive of resolving biloma. White cell count was 18.2 thousand on admission. Started coming down and then respiked to 20.2 on May 02. Today it is 14.9. -clinically stable and pt seems to tolerate diet, wbc trending down, abx switched to zosyn from levaquin, flagyl on 05/02 due to possible concern for jaylen oing infection -will advance diet as tolerated. She was on clear liquids and I have advanced her to regular diet to see which she tolerates. -We were deferring to outpatient management by surgery. General surgery was consulted. Please see that note.We were thinking that we would send her home with oral antibiotics. After discussion today, I spoke to general surgery. I wanted them to put a for mal note in the chart since we are being guided by them but no formal recommendations. This was strictly for documentation purposes. In speaking to Dr. Stewart, she feels the patient should be transferred back to her original surgeon. Dr. Soraida Reese at [facility] has accepted her. We are going to be doing a HIDA scan. And then they will accept her to their hospital to probably do an exploratory lap to get to the small bile leak or abscess still present. (2) Hypokalemia Impression: Initially I ordered potassium riders. But the patient has an intact gut. Conflict between try to give antibiotics and timing. So I switched her back to p.o. 40 mEq every 4 hours for 3 doses. (3) UTI (urinary tract infection) Impression: She respiked a temperature. In all of our confusing conversations with multiple surgeons across multiple hospitals, her abdomen did not appear to be source of infection so we look for other courses. We found a UTI but it is yeast. She was started on Diflucan. (3) Acute metabolic encephalopathy Assessment/Plan: Resolved (4) Dementia Qualifiers: Dementia type: associated with other underlying disease Dementia behavioral disturbance: without behavioral disturbance Qualified Code(s): F02.80 - Dementia in other diseases classified elsewhere without behavioral disturbance Assessment/Plan: Stable (5) Type II diabetes mellitus with complication, uncontrolled Assessment/Plan: Glucose has been to the mid 100s and to the mid 200s. She is on Lantus 5 units at breakfast. Sliding scale the rest of the time. She is not eating much.
[2021-05-04 08:03] LABS: BASOPHILS % (AUTO) 0.3 %; EOSINOPHILS # (AUTO) 0.1 10^3/uL (0.0-0.7); EOSINOPHILS % (AUTO) 0.4 %; HCT - HEMATOCRIT 36.6 % (37.0-47.0); HGB - HEMOGLOBIN 12.5 g/dL (12.0-16.0); LYMPHOCYTES # (AUTO) 1.3 10^3/uL (1.5-3.5); LYMPHOCYTES % (AUTO) 8.5 %; MEAN CORPUSCULAR HEMOGLOBIN 32.7 pg (27.0-31.0); MEAN CORPUSCULAR HGB CONC 34.2 g/dL (32.0-36.0); MEAN CORPUSCULAR VOLUME 95.8 fL (81.0-99.0); MEAN PLATELET VOLUME 9.6 fL (7.9-10.8); MONOCYTES # (AUTO) 0.8 10^3/uL (0.0-1.0); MONOCYTES % (AUTO) 5.6 %; NEUTROPHILS # (AUTO) 12.6 10^3/uL (1.5-6.6); NEUTROPHILS % (AUTO) 84.9 %; PLT - PLATELET COUNT 309 10^3/uL (130-450); RED BLOOD COUNT 3.82 10^6/uL (4.20-5.40); WHITE BLOOD COUNT 14.9 x10^3/uL (4.8-10.8)
[2021-05-04 08:14] LABS: CALCIUM 8.3 mg/dL (8.5-10.3); CREATININE 0.5 mg/dL (0.4-1.0)
[2021-05-04] MEDS: INSULIN ASPART 300 UNIT/3 ML PEN SUBQ SCH ×4 (08:16→20:36)
[2021-05-04] MEDS: INSULIN GLARGINE 300 UNIT/3 ML PEN SUBQ SCH (08:16)
[2021-05-04] MEDS: SACCHAROMYCES BOULARDII 250 MG CAPSULE PO SCH ×2 (08:17→17:00)
[2021-05-04] MEDS: THIAMINE 100 MG TABLET PO SCH (08:17)
[2021-05-04] MEDS: SENNA 8.6 MG TABLET PO SCH (08:17)
[2021-05-04] MEDS: PRENATAL VITAMIN TABLET PO SCH (08:17)
[2021-05-04] MEDS: FLUCONAZOLE 100 MG TABLET PO SCH (08:17)
[2021-05-04] MEDS: DOCUSATE SODIUM 100 MG CAPSULE PO SCH ×2 (08:17→20:37)
[2021-05-04] MEDS: ENOXAPARIN 40 MG/0.4 ML SYRINGE SUBQ SCH (08:17)
[2021-05-04] MEDS: MULTIVITAMIN W/MINERALS TABLET PO SCH (08:17)
[2021-05-04] MEDS: diltiaZEM CD 240 MG CAPSULE PO SCH (08:21)
[2021-05-04] MEDS ORDERED: POTASSIUM CHLOR 10 MEQ/100 ML 10 MEQ/100 ML BAG IV SCH (09:00)
[2021-05-04] MEDS: POTASSIUM CHLORIDE 20 MEQ TABLET PO SCH ×3 (10:15→17:39)
[2021-05-04] MEDS: SIMETHICONE CHEW 80 MG TABLET PO SCH ×3 (12:04→20:36)
--- NOTE | 2021-05-04 17:23 | PROVIDER PROGRESS NOTE ---
Subjective - General Admit Date: 04/24/21 Procedure Date: 05/04/21 Post Op Days: 0 Procedure Performed: None - Review of Systems All Other Systems: positive: Other (Review of systems is provided by her son. He states that he sees her once a week. In the last 2 weeks he seen her every day) - Other Other Information/Narrative: Richa reports she feels terrible. She has been tolerating a regular diet but she is still having significant abdominal pain.She has been afebrile and continues on IV antibiotic therapy.Ultrasound done2 days ago reveals that the biloma is smaller than it has been on previous studies.She is understandably frustrated. Objective - Patient Data Reviewed Vital Signs: Yes Vital Signs: Vital Signs x48h Temp Pulse Resp BP 05/04/21 16:00 36.4 C L 95 16 134/65 H Weight: Weight 05/02/21 05/03/21 05/04/21 23:59 23:59 23:59 Weight (kg) 84 kg Intake & Output: Intake and Output Totals x24h 05/02/21 05/03/21 05/04/21 23:59 23:59 23:59 Intake Total 720 840 400 Output Total 500 450 Balance 720 340 -50 - Lab Results Lab Results: 05/04/21 07:56 05/04/21 07:56 Other Lab Results: Lab Results x24hrs 05/04/21 05/04/21 05/04/21 Range/Units 16:20 10:53 07:56 WBC (4.8-10.8) x10^3/uL RBC (4.20-5.40) 10^6/uL Hgb (12.0-16.0) g/dL Hct (37.0-47.0) % MCV (81.0-99.0) fL MCH (27.0-31.0) pg MCHC (32.0-36.0) g/dL RDW (12.0-15.0) % Plt Count (130-450) 10^3/uL MPV (7.9-10.8) fL Neut # (Auto) (1.5-6.6) 10^3/uL Lymph # (Auto) (1.5-3.5) 10^3/uL Logan # (Auto) (0.0-1.0) 10^3/uL Eos # (Auto) (0.0-0.7) 10^3/uL Baso # (Auto) (0.0-0.1) 10^3/uL Absolute Nucleated RBC x10^3/uL Nucleated RBC % /100WBC Sodium 136 (135-145) mmol/L Potassium 3.0 L (3.5-5.0) mmol/L Chloride 98 L (101-111) mmol/L Carbon Dioxide 25 (21-32) mmol/L Anion Gap 13.0 (6-13) BUN 12 (6-20) mg/dL Creatinine 0.5 (0.4-1.0) mg/dL Estimated GFR (MDRD) 119 (>89) Glucose 156 H (70-100) mg/dL POC Whole Bld Glucose 250 H 210 H (70 - 100) mg/dL Calcium 8.3 L (8.5-10.3) mg/dL 05/04/21 05/04/21 05/03/21 Range/Units 07:56 07:19 20:12 WBC 14.9 H (4.8-10.8) x10^3/uL RBC 3.82 L (4.20-5.40) 10^6/uL Hgb 12.5 (12.0-16.0) g/dL Hct 36.6 L (37.0-47.0) % MCV 95.8 (81.0-99.0) fL MCH 32.7 H (27.0-31.0) pg MCHC 34.2 (32.0-36.0) g/dL RDW 13.0 (12.0-15.0) % Plt Count 309 (130-450) 10^3/uL MPV 9.6 (7.9-10.8) fL Neut # (Auto) 12.6 H (1.5-6.6) 10^3/uL Lymph # (Auto) 1.3 L (1.5-3.5) 10^3/uL Logan # (Auto) 0.8 (0.0-1.0) 10^3/uL Eos # (Auto) 0.1 (0.0-0.7) 10^3/uL Baso # (Auto) 0.0 (0.0-0.1) 10^3/uL Absolute Nucleated RBC 0.00 x10^3/uL Nucleated RBC % 0.0 /100WBC Sodium (135-145) mmol/L Potassium (3.5-5.0) mmol/L Chloride (101-111) mmol/L Carbon Dioxide (21-32) mmol/L Anion Gap (6-13) BUN (6-20) mg/dL Creatinine (0.4-1.0) mg/dL Estimated GFR (MDRD) (>89) Glucose (70-100) mg/dL POC Whole Bld Glucose 157 H 165 H (70 - 100) mg/dL Calcium (8.5-10.3) mg/dL - Current Medications Current Medications: Current Medications Generic Name Dose Route Start Last Admin Trade Name Freq PRN Reason Stop Dose Admin Diltiazem HCl 240 mg 04/25/21 09:00 05/04/21 08:21 Diltiazem Cd 240 Mg Capsule PO 240 mg DAILY CARLOS Administration Docusate Sodium 100 mg 04/25/21 09:00 05/04/21 08:17 Docusate Sodium 100 Mg Capsule PO Not Given BID CARLOS Enoxaparin Sodium 40 mg 04/26/21 09:00 05/04/21 08:17 Enoxaparin 40 Mg/0.4 Ml Syringe SUBQ 40 mg DAILY [facility]OS Administration Fluconazole 200 mg 05/03/21 22:06 05/04/21 08:17 Fluconazole 100 Mg Tablet PO 05/09/21 09:01 200 mg DAILY CARLOS Administration Promethazine HCl 25 mg/ Sodium 51 mls @ 100 mls/hr 04/28/21 14:47 04/30/21 13:04 Chloride IV Infused Q6H PRN Infusion Nausea / Vomiting Piperacillin Sod/Tazobactam 100 mls @ 25 mls/hr 05/02/21 13:00 05/04/21 14:15 Sod 4.5 gm/ Sodium Chloride IV 25 mls/hr Q8H CARLOS Administration Insulin Aspart 1 - 9 unit 05/04/21 17:00 05/04/21 17:00 Insulin Aspart 300 Unit/3 Ml Pen SUBQ 5 unit 0800,1200,1700,2100 [facility]OS Administration Protocol Insulin Glargine 5 unit 04/24/21 08:00 05/04/21 08:16 Insulin Glargine 300 Unit/3 Ml Pen SUBQ 5 unit QDBREAKFAST [facility]OS Administration Multivitamins/Minerals 1 tab 05/02/21 08:00 05/04/21 08:17 Multivitamin W/Minerals Tablet PO 1 tab DAILYWM [facility] Administration Ondansetron HCl 4 mg 04/24/21 03:54 05/02/21 13:09 Ondansetron Odt 4 Mg Tablet TL 4 mg Q6HR PRN Administration Nausea / Vomiting Ondansetron HCl 4 mg 04/24/21 03:54 05/01/21 11:46 Ondansetron 4 Mg/2 Ml Vial IVP 4 mg Q6HR PRN Administration Nausea / Vomiting Oxycodone HCl 5 mg 04/24/21 03:54 04/25/21 15:50 Oxycodone 5 Mg Tablet PO 5 mg Q4HR PRN Administration Pain 5 to 7 Potassium Chloride 40 meq 05/04/21 10:00 05/04/21 14:15 Potassium Chloride 20 Meq Tablet PO 05/04/21 18:01 40 meq Q4H CAR[facility]OS Administration Pravastatin Sodium 40 mg 04/25/21 21:00 05/03/21 21:12 Pravastatin 40 Mg Tablet PO 40 mg QPM [facility] Administration Multivit/Folic Acid/Iron 1 tab 04/24/21 08:00 05/04/21 08:17 Vitamin Tablet PO 1 tab DAILYWM [facility] Administration Prochlorperazine Edisylate 10 mg 04/28/21 11:29 04/30/21 08:28 Prochlorperazine 10 Mg/2 Ml Vial IVP 10 mg Q6HR PRN Administration Nausea / Vomiting Saccharomyces Boulardii 250 mg 05/01/21 17:00 05/04/21 17:00 Saccharomyces Boulardii 250 Mg Capsule PO 250 mg BIDWM [facility] Administration Senna 8.6 - 17.2 mg 05/02/21 09:00 05/04/21 08:17 Senna 8.6 Mg Tablet PO Not Given DAILY [facility] Simethicone 80 mg 05/04/21 13:00 05/04/21 12:04 Simethicone Chew 80 Mg Tablet PO 80 mg 0900,1300,1800,2100 [facility] Administration Sodium Chloride 10 ml 04/24/21 03:54 05/02/21 13:01 Sodium Chloride Flush 0.9% 10 Ml Syringe IVP 10 ml PRN PRN Administration NEEDED PER PROVIDER ORDERS Sodium Chloride 10 ml 04/24/21 09:00 05/04/21 17:00 Sodium Chloride Flush 0.9% 10 Ml Syringe IVP 10 ml 0100,0900,1700 CAR[facility] Administration Thiamine HCl 100 mg 04/24/21 09:00 05/04/21 08:17 Thiamine 100 Mg Tablet PO 100 mg DAILY [facility] Administration Zolpidem Tartrate 5 mg 04/27/21 17:39 05/03/21 22:35 Zolpidem 5 Mg Tablet PO 5 mg QPM PRN Administration Insomnia - Physical Exam Wound/Incisions: positive: Healing well General Appearance: positive: No acute distress, Lethargic Eyes Bilateral: positive: Normal inspection, PERRL, EOMI Abdomen: positive: Nml bowel sounds, Other (minimal distension, tender RUQ without peritoneal signs). negative: Guarding, Rebound Skin: positive: Color nml Neurologic/Psychiatric: positive: Oriented x3 ABX Reporting Has patient been on IV antibiotics over the past 48 hours?: Yes Impression/Plan - Problem List Problem List: 1. Postoperative fluid collection-abscess, biloma, hematoma-after cholecystectomy at an outside facility. 2. MRCP consistent with cystic duct stump leak.As the collection has not increased in size, I would presume the stump leak has stopped. I have ordered a HIDA scan to verify this fact and this will be done tomorrow. 3. She has been maintained on Zosyn and Diflucan since April 26 and her white count is climbing and she continues to have significant abdominal pain and malaise.As this collection is not accessible percutaneously, per radiologist, we will need to make a decision regarding continued IV antibiotic therapy or laparoscopic drainage. 4. I spoke with Dr. Soraida Reese who is on-call at [facility] this evening. The patient's surgeon there was Dr. Kaden Luu. She is agreed to accept the patient in transfer for continued treatment and evaluation at [facility] as this was her original treating facility in the place where she had her original operation. Our plan is to complete to the HIDA scan tomorrow to prove that leak has stopped and then touch base with Dr. Reese once again prior to transfer.
[2021-05-04] MEDS: PRAVASTATIN 40 MG TABLET PO SCH (20:35)
[2021-05-04] MEDS: ZOLPIDEM 5 MG TABLET PO PRN (21:54)
[2021-05-05] MEDS: SODIUM CHLORIDE FLUSH 0.9% 10 ML SYRINGE IVP SCH ×2 (00:16→13:04)
[2021-05-05] MEDS: PIPERACILLIN/TAZOBACTAM 4.5 GM in SODIUM CHLORIDE 0.9% MINIBAG 100 ML IV SCH ×2 (05:01→13:03)
[2021-05-05 05:48] LABS: BASOPHILS % (AUTO) 0.4 %; EOSINOPHILS # (AUTO) 0.1 10^3/uL (0.0-0.7); EOSINOPHILS % (AUTO) 0.6 %; HCT - HEMATOCRIT 35.4 % (37.0-47.0); HGB - HEMOGLOBIN 11.8 g/dL (12.0-16.0); LYMPHOCYTES # (AUTO) 1.7 10^3/uL (1.5-3.5); LYMPHOCYTES % (AUTO) 15.1 %; MEAN CORPUSCULAR HGB CONC 33.3 g/dL (32.0-36.0); MEAN CORPUSCULAR VOLUME 95.9 fL (81.0-99.0); MEAN PLATELET VOLUME 9.7 fL (7.9-10.8); MONOCYTES # (AUTO) 0.9 10^3/uL (0.0-1.0); MONOCYTES % (AUTO) 7.6 %; NEUTROPHILS # (AUTO) 8.4 10^3/uL (1.5-6.6); NEUTROPHILS % (AUTO) 75.8 %; PLT - PLATELET COUNT 340 10^3/uL (130-450); RED BLOOD COUNT 3.69 10^6/uL (4.20-5.40); WHITE BLOOD COUNT 11.1 x10^3/uL (4.8-10.8)
[2021-05-05 05:57] LABS: CALCIUM 8.3 mg/dL (8.5-10.3); CREATININE 0.5 mg/dL (0.4-1.0); POTASSIUM 3.9 mmol/L (3.5-5.0)
[2021-05-05] MEDS: INSULIN ASPART 300 UNIT/3 ML PEN SUBQ SCH ×3 (09:10→18:54)
[2021-05-05] MEDS: INSULIN GLARGINE 300 UNIT/3 ML PEN SUBQ SCH (09:10)
[2021-05-05] MEDS: ENOXAPARIN 40 MG/0.4 ML SYRINGE SUBQ SCH (09:11)
[2021-05-05] MEDS: FLUCONAZOLE 100 MG TABLET PO SCH (09:12)
[2021-05-05] MEDS: diltiaZEM CD 240 MG CAPSULE PO SCH (09:12)
[2021-05-05] MEDS: SIMETHICONE CHEW 80 MG TABLET PO SCH ×2 (12:22→13:04)
[2021-05-05] MEDS: SENNA 8.6 MG TABLET PO SCH (12:22)
[2021-05-05] MEDS: DOCUSATE SODIUM 100 MG CAPSULE PO SCH (12:22)
[2021-05-05] MEDS: THIAMINE 100 MG TABLET PO SCH (13:02)
[2021-05-05] MEDS: MULTIVITAMIN W/MINERALS TABLET PO SCH (13:02)
[2021-05-05] MEDS: SACCHAROMYCES BOULARDII 250 MG CAPSULE PO SCH (13:02)
[2021-05-05] MEDS: PRENATAL VITAMIN TABLET PO SCH (13:02)
--- NOTE | 2021-05-05 13:53 | Nuclear Medicine Report ---
PROCEDURE: Hepatobiliary HIDA w/o Rx INDICATIONS: Bile leak after cholecystectomy RADIOPHARMACEUTICAL: 5.0 mCi Tc-99m meprofenin i.v. TECHNIQUE: Following intravenous administration of Tc-99m meprofenin, sequential anterior abdominal images were obtained through 60 minutes. COMPARISON: CT abdomen and pelvis with contrast, 04/24/2021. MRCP, 04/27/2021. Ultrasound abdomen [facility], 05/01/2021. FINDINGS: Biliary scan: There is normal tracer uptake and excretion by the liver. There is normal visualizati on of the intrahepatic ducts, common bile duct, and normal tracer transit into the duodenum. Extensi ve gallbladder consistent with cholecystectomy. No extravasation of tracer around the liver to sugges t bile leak. IMPRESSION: 1. No scintigraphic findings to suggest bowel leak. 2. Absence of gallbladder consistent with cholecystectomy. Attempt to contact Dr. Estrada to give the preliminary result at [phone] was unsuccessful (reached an answering machine). Reviewed by: Cristiano Clayton MD on 05/05/2021 1:52 PM PDT Approved by: Cristiano Clayton MD on 05/05/2021 1:52 PM PDT Station ID: [id number]
[2021-05-05 16:55] VITALS: BP 141/65
[2021-05-05] MEDS ORDERED: diltiaZEM CD 240 MG CAPSULE PO SCH (17:04)
--- NOTE | 2021-05-05 19:01 | Discharge Plan ---
Discharge Plan Problem Reviewed?: Yes Disposition: 02 Transfer Acute Care Hosp Condition: Fair No Smoking: If you smoke, Please STOP! Call for help. Follow-up with: Sheng Espana MD [Primary Care Provider] -
--- NOTE | 2021-05-05 19:04 | DISCHARGE SUMMARY ---
Discharge Summary Discharge Date: 05/05/21 Discharging Provider: Leslee Parmar MD Primary Care Provider: Sheng Espana MD Code Status: Attempt Resuscitation Condition at Discharge: Fair Discharge Disposition: 02 Transfer Acute Care Hosp - DIAGNOSES Discharge Diagnoses with Status of Each Condition: 1. Postoperative abscess versus biloma 2. Metabolic encephalopathy 3. Type 2 diabetes mellitus with hyperglycemia 4. Dementia 5. Alcohol consumption heavy 6. Obstructive sleep apnea 7. Hypokalemia 8. UTI 9. Hyponatremia 10. Acute kidney injury 11. Long-term benzodiazepine use - HPI History of Present Illness: She is a 80-year-old female who has type 2 diabetes mellitus and has been gradually failing at home over the last year. She has been having increasing forgetfulness. At times maría elena confusion. For instance she would drive to her son's house for Tuesday dinner and forget what day it was a why she was there. Son feels she drinks a little bit too much. More than 2 glasses of wine a day. Got much worse this summer. She also has chronic insomnia and will state that she goes for for 5 days without sleep and must have her benzodiazepines and Ambien in order to sleep. Over the last month the children are started to realize that maybe they should have stepped in sooner with mom's medications and figuring out what was going on with her. For instance they have found bottles of Metformin that have been unopened and picked up from the pharmacy. In addition to memory loss and forgetfulness, she has been having increasing musculoskeletal joint pain. But she is "allergic" to opiates and Tylenol which will induce itching. Which means her pain is not controlled, which means she cannot sleep, which means she takes more benzodiazepines or Ambien. With this has been increasing falls. A fall in 2015 resulted in a nondisplaced oblique fracture of the femur. She was also seen in the urgent care clinic March 31 due to pain in her joints and falls. She was diagnosed as a UTI and given antibiotics. She had shoulder injections. The children have been in the process of transitioning her to a intermediate facility for permanent placement. She was then seen April 03 in the emergency room because of 4 falls in 2 weeks. She was vague about the details. Her son who is here dariel says that she was never really clear about why she was falling. She fell yet again and was laying on the floor when the patient's [id number] found her. Brought her to the emergency room. She was diagnosed as dehydration with ultrasound of the inferior vena cava and given saline. Labs showed her to have elevated liver enzymes without any pain. Ultrasound of the abdomen showed cholecystitis without a Ramos sign. CT of the abdomen confirmed cholecystitis without intrahepatic biliary ductal dilatation. General surgery was consulted and he felt that she should have her gallbladder taken out. The patient did not want to have surgery here. As such she was discharged, and it took 2 weeks for her to get her gallbladder taken out. That was taken out 3 days ago. Since discharge she has not done well. She has been confused. Her son is basically moved in with her and is making sure she is eating and drinking. While she is not eating very much she is drinking water and electrolyte solutions. Starting yesterday evening, her son feels that her memory loss, and confusion is much worse. He does not describe cough, shortness of breath. No fever fever. No chills . However she is panting at times and he does not know why. Just increasing confusion. She has been taking oxycodone for pain but not with increasing amounts. There has been no emesis. No diarrhea. No syncope. No chest pain. She was evaluated by Dr. Coe in the emergency room. Patient's temperature is 36.9. Heart rate 116. Blood pressure 147/70. Respirations 20 and she is 100% on room air. Mucous membranes are not dry. Bilateral coarse breath sounds. Abdomen had diffuse discomfort with palpation. Laparoscopic sites were clean. Extremities were warm and dry. She was oriented x1. She underwent a head CT, chest CT, cervical spine CT, and an abdominal CT. Final reports are not in the electronic medical record but per verbal report of Dr. Coe, nothing acute was found.She has atelectasis. A pulmonary nodule. She does not have urinary obstruction. She does not have a UTI. She does not have pneumonia.She is hyponatremic to 125. Hypokalemic to 3.3. BUN is 43, creatinine 2.6. Random glucose is 225. Troponin is 21.7. Lactic acid is drawn and pending. 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 Admission abdominal CT with small amount of intraperitoneal free air dominantly in the right upper quadrant related to sequela of recent injury. A small fluid collection in the gallbladder fossa incompletely evaluated in the absence of intravenous and oral contrast. A postsurgical collection such as a biloma, developing abscess or seroma cannot be excluded. Small area of consolidation in the lung base. 2. Head CT without acute intracranial process 3. Cervical spine CT with no fracture. No acute osseous lesion. 4. Chest CT with bilateral effusions with area of atelectasis. Small consolidation in the right lung base. Partially visualized free air within the upper abdomen. Small low-attenuation collection surrounding cholecystectomy clips as described in previous CT. Free intraperitoneal air in the upper abdomen. 5. MRCP with small fluid collection near the gallbladder fossa. Heterogeneous with mild perihilar enhancement. Pneumoperitoneum. No biliary or pancreatic ductal dilatation. No hepatic abscess. #6 abdominal ultrasound with irregular collection seen within the gallbladder fossa. Attributed to resolving biloma. 7. Hepatobiliary scan. No bowel leak. Absence of gallbladder consistent with cholecystectomy. 8. Blood cultures - April 24. 9. May 01 urine culture growing yeast. - HOSPITAL COURSE Hospital Course: The patient was admitted with the the idea that she had a metabolic encephalopathy, possibly from infection. She also had a history of excessive benzo use and alcohol abuse and possbile dementia. The ER doctor reported her abdominal CT to be without any findings. However on final report the next day, the CT was interpreted as possible biloma, bile leak or abscess. That was the main focus of during the stay of determining whether she was having an active bile leak. Numerous conversations were had with outside facilities as we tried to transfer her to get ERCPs, GI consultations, etc. Dementia was problematic. She had leukocytosis, history of alcohol abuse. Obstructive sleep apnea. She was treated empirically with antibiotics throughout her entire stay. Numerous imaging studies were done to quantify this abscess/fluid collection/biloma. General surgery followed her. After many attempts to transfer to various facilities, our surgeon finally contacted the original surgeon who did her surgery. The only way to get to this fluid collection was through possible exploratory laparotomy. Interventional radiology could not get through to this area where anatomy was prohibitive. As such the original surgeon, after speaking to Dr. Stewart, accepted this patient in transfer. She was transferred to [facility] in [place]. Temperature was 36.7. Heart rate 87. Blood pressure 141/65. Respirations 20 and she is 95% on room air. She had a withdrawn affect. Complains constantly of chronic back pain. Was very forgetful. Neck was supple. Bilateral mastectomies. Lungs were clear with diminished breath sounds at the bases. She was very easily fatigued and short of breath with minimal exertion just getting up out of bed to go to the bathroom. Regular rate and rhythm. Abdomen was tender in the epigastrium, mildly so. Hypoactive bowel sounds. No edema was present. She is able to use a front wheel walker with standby assist and walk about 30 feet. She would do leg exercises with physical therapy. She is usually resistant to working with physical therapy but then could get control to do it. She is discharged in stable condition. Her follow-up will be depending on what general surgery says from [place]. - ALLERGIES Allergies/Adverse Reactions: Allergies Allergy/AdvReac Type Severity Reaction Status Date / Time acetaminophen [From Tylenol] Allergy Itching Verified 04/24/21 00:22 erythromycin base Allergy Anaphylaxis Verified 04/24/21 00:22 oxycodone Allergy Itching Verified 04/24/21 00:22 ibuprofen [From Motrin] AdvReac Mild Itching Verified 04/24/21 00:22 NSAIDS (Non-Steroidal AdvReac Itching Verified 04/24/21 00:22 Anti-Inflamma - MEDICATIONS Home Medications: Ambulatory Orders Medication Instructions Recorded Confirmed Pravastatin [Pravachol] 40 mg PO DAILY 12/13/15 04/24/21 diltiaZEM CD [Cardizem Cd] 240 mg PO DAILY 12/13/15 04/24/21 metFORMIN [Glucophage] 500 mg PO DAILY 12/13/15 04/24/21 LORazepam [Lorazepam] 2 mg PO QPM 09/26/19 04/24/21 Docusate Sodium 100Mg Capsule 100 mg PO BID 04/24/21 04/24/21 [Colace 100Mg Capsule] Insulin Aspart [NovoLOG] 1 - 5 unit SUBQ 0800,1200,1700,2100 04/28/21 Insulin Glargine [Lantus Solostar] 5 unit SUBQ [id number] 04/28/21 - LABS Result Diagrams: 05/05/21 05:34 05/05/21 05:34
== END 2021-05-05 17:30 | disposition short-term general hospital (02) | DRG 862 ==
LOC: EDUNIT# → SUPCPDRO 00:14 → ED 00:14 → MS2 03:54
PROVIDERS: ADMIT Specialist; ATTEND Specialist
DX: K68.11 Postprocedural retroperitoneal abscess (principal); G93.41 Metabolic encephalopathy; R41.82 Altered mental status, unspecified; D72.823 Leukemoid reaction; E87.1 Hypo-osmolality and hyponatremia; E11.9 Type 2 diabetes mellitus without complications; N17.9 Acute kidney failure, unspecified; B37.49 Other urogenital candidiasis; F10.94 Alcohol use, unspecified with alcohol-induced mood disorder; J98.11 Atelectasis; Z20.822 Contact with and (suspected) exposure to COVID-19; K91.89 Other postprocedural complications and disorders of digestive system; Y83.6 Removal of other organ (partial) (total) as the cause of abnormal reaction of the patient, or of later complication, without mention of misadventure at the time of the procedure; I10 Essential (primary) hypertension; F10.982 Alcohol use, unspecified with alcohol-induced sleep disorder; E87.6 Hypokalemia; E86.0 Dehydration; E11.65 Type 2 diabetes mellitus with hyperglycemia; F02.80 Dementia in other diseases classified elsewhere, unspecified severity, without behavioral disturbance, psychotic disturbance, mood disturbance, and anxiety; G47.33 Obstructive sleep apnea (adult) (pediatric); G47.00 Insomnia, unspecified; E78.00 Pure hypercholesterolemia, unspecified; G89.29 Other chronic pain; M54.9 Dorsalgia, unspecified; M25.50 Pain in unspecified joint; R32 Unspecified urinary incontinence; Z72.89 Other problems related to lifestyle; Z88.5 Allergy status to narcotic agent; Z88.6 Allergy status to analgesic agent; H53.8 Other visual disturbances; H91.90 Unspecified hearing loss, unspecified ear; Z91.81 History of falling; Z91.14 Patient's other noncompliance with medication regimen; Z74.09 Other reduced mobility; Z79.899 Other long term (current) drug therapy; Z79.84 Long term (current) use of oral hypoglycemic drugs; Z90.49 Acquired absence of other specified parts of digestive tract; Z90.13 Acquired absence of bilateral breasts and nipples; Z98.1 Arthrodesis status; Z85.3 Personal history of malignant neoplasm of breast; Z87.891 Personal history of nicotine dependence
CPT/HCPCS: 36415; 51701; 70450; 71250; 72125; 74150; 74183; 76705; 78226; 80048; 80053; 80076; 81001; 82140; 83036; 83605; 83690; 84300; 84484; 85025; 85027; 87040; 87086; 87631; 87635; 93005; 96360; 96361; 97161; 97165; 97530; 99285; A9270; A9537; A9585; J1650; J1815; J7040; J7120; Q0162; 0202U; 81003

== ENCOUNTER 2021-05-05 17:38 | Outpatient (CLI) | payer MEDICARE, OTHER | END 2021-05-05 17:39 | disposition short-term general hospital (02) | LOC: EMS 17:38 | PROVIDERS: ATTEND Specialist | DX: Z74.01 Bed confinement status (principal) | CPT/HCPCS: A0425; A0428 ==

== ENCOUNTER → 2021-05-13 | Outpatient (CLI) | payer MEDICARE, OTHER ==
[2021-05-13 13:40] LABS: BASOPHILS # (AUTO) 0.1 10^3/uL (0.0-0.1); BASOPHILS % (AUTO) 0.5 %; EOSINOPHILS # (AUTO) 0.1 10^3/uL (0.0-0.7); EOSINOPHILS % (AUTO) 0.8 %; HCT - HEMATOCRIT 38.1 % (37.0-47.0); HGB - HEMOGLOBIN 12.7 g/dL (12.0-16.0); LYMPHOCYTES # (AUTO) 1.1 10^3/uL (1.5-3.5); LYMPHOCYTES % (AUTO) 10.6 %; MEAN CORPUSCULAR HEMOGLOBIN 31.9 pg (27.0-31.0); MEAN CORPUSCULAR HGB CONC 33.3 g/dL (32.0-36.0); MEAN CORPUSCULAR VOLUME 95.7 fL (81.0-99.0); MONOCYTES % (AUTO) 9.6 %; NEUTROPHILS % (AUTO) 78.2 %; RED BLOOD COUNT 3.98 10^6/uL (4.20-5.40); RED CELL DISTRIBUTION WIDTH 13.3 % (12.0-15.0); WHITE BLOOD COUNT 10.3 x10^3/uL (4.8-10.8)
[2021-05-13 18:15] LABS: SLIDE REVIEW? Indicated
[2021-05-13 18:16] LABS: PLATELET ESTIMATE, MANUAL NORMAL (130-450,000) (NORMAL); PLATELET MORPHOLOGY PLATELET CLUMPING (NORMAL); RBC MORPHOLOGY (MULTIPLE) NORMAL APPEARANCE (NORMAL)
== END ==
LOC: LAB 08:00
PROVIDERS: ATTEND Nurse Practitioner
DX: K91.5 Postcholecystectomy syndrome (principal); N39.0 Urinary tract infection, site not specified
CPT/HCPCS: 36415; 85025

== ENCOUNTER → 2021-05-14 | Outpatient (CLI) | payer MEDICARE, OTHER ==
[2021-05-14 19:07] LABS: CALCIUM 9.1 mg/dL (8.5-10.3); CREATININE 0.5 mg/dL (0.4-1.0); POTASSIUM 2.9 mmol/L (3.5-5.0)
== END ==
LOC: LAB 08:00
DX: K66.8 Other specified disorders of peritoneum (principal); E11.9 Type 2 diabetes mellitus without complications
CPT/HCPCS: 36415; 80048

== ENCOUNTER 2021-05-20 13:30 | Outpatient (CLI) | payer MEDICARE, OTHER ==
[2021-05-20 13:43] LABS: CALCIUM 9.1 mg/dL (8.5-10.3); CREATININE 0.4 mg/dL (0.4-1.0); POTASSIUM 3.8 mmol/L (3.5-5.0)
== END 2021-05-20 13:31 | disposition home or self-care (01) ==
LOC: LAB.R 13:30
PROVIDERS: ATTEND Family Medicine
DX: E11.9 Type 2 diabetes mellitus without complications (principal)
CPT/HCPCS: 80048

== ENCOUNTER 2021-09-22 08:20 | Outpatient (CLI) | payer MEDICARE, OTHER ==
--- NOTE | 2021-09-22 15:45 | XRAY Report ---
PROCEDURE: Shoulder 3 View LT INDICATIONS: SHOULDER PAIN TECHNIQUE: 3 views of the shoulder were acquired. COMPARISON: Shoulder x-ray 03/31/2021 FINDINGS: Bones: No fractures or dislocations. No suspicious bony lesions. Visualized ribs appear intact. M oderate to severe acromioclavicular degenerative narrowing is present. Soft tissues: No suspicious soft tissue calcifications. IMPRESSION: Moderate to severe acromioclavicular arthritic narrowing. Reviewed by: Jessica Qureshi MD on 09/22/2021 3:43 PM PST Approved by: Jessica Qureshi MD on 09/22/2021 3:43 PM PST Station ID: [id number]
== END 2021-09-22 08:21 | disposition home or self-care (01) ==
LOC: DI.WOS 08:20
PROVIDERS: ATTEND Physician Assistant
DX: M19.012 Primary osteoarthritis, left shoulder (principal)

== ENCOUNTER 2022-04-22 09:53 | Outpatient (CLI) | payer MEDICARE, OTHER ==
--- NOTE | 2022-04-22 14:13 | Ultrasound Report ---
PROCEDURE: Abdomen Complete, ultrasound INDICATIONS: Vomiting TECHNIQUE: Real-time scanning was performed of the abdominal and retroperitoneal organs, with image documentatio n. COMPARISON: None. FINDINGS: Liver: Liver is normal in size and homogeneous in echotexture. Gallbladder: Cholecystectomy Biliary ducts: Intrahepatic bile ducts are non-dilated. Extrahepatic bile duct caliber measures 5.2 mm. Normal is 6-7 mm or less in diameter, or 10 mm or less post-cholecystectomy. Pancreas: Visualized portions of the pancreas are sonographically normal. Spleen: Spleen is normal in size and homogeneous in echotexture. Kidneys: Kidneys are normal in size and echotexture. Right kidney measures 12.5 cm long; left kidne y measures 12.8 cm long. No hydronephrosis or nephrolithiasis. No solid masses. Renal cyst measure s 2.3 x 2.4 cm Aorta: Visualized aorta is normal in caliber at less than 3 cm. Iliacs: Proximal common iliac arteries are normal in caliber at less than 2.5 cm. IVC: Intrahepatic inferior vena cava is patent. Miscellaneous: No free abdominal fluid. IMPRESSION: 1. Simple renal cyst. Otherwise unremarkable ultrasound of the abdomen Reviewed by: Aristeo Morales MD on 04/22/2022 1:12 PM LEIGH ANN Approved by: Aristeo Morales MD on 04/22/2022 1:12 PM AKSHAKIRA Station ID: [id number]
== END 2022-04-22 09:54 | disposition home or self-care (01) ==
LOC: DI 09:53
PROVIDERS: ATTEND Nurse Practitioner Gerontology
DX: N28.1 Cyst of kidney, acquired (principal); R14.0 Abdominal distension (gaseous); R11.10 Vomiting, unspecified

== ENCOUNTER 2022-04-29 17:33 | Outpatient (CLI) | payer MEDICARE, OTHER | END 2022-04-29 17:34 | disposition critical access hospital (66) | LOC: EMS 17:33 | DX: R07.89 Other chest pain (principal); R11.2 Nausea with vomiting, unspecified | CPT/HCPCS: A0425; A0429 ==

== ENCOUNTER 2022-04-29 17:52 | Emergency (ER) | payer MEDICARE, OTHER ==
--- NOTE | 2022-04-29 17:55 | ED Physician Documentation ---
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 She been having trouble with vomiting for the last month. It is generally slowly worsening despite being treated with Zofran. Her nurse practitioner had done an ultrasound which was reported to me as normal. No other current diagnostics but there were plans to send her to a surgeon for evaluation for potential EGD. Today she developed sharp substernal nonradiating chest pain that has now subsided. It lasted maybe an hour. It was worse with deep breathing but she was not short of breath with it. She is not currently nauseous, she did vomit earlier this morning. No abdominal pain. Bowel movements have been normal. Review of Systems Ten Systems: 10 systems reviewed and negative Constitutional: denies: Fever, Chills Throat: reports: Reviewed and negative Cardiac: reports: Reviewed and negative Respiratory: reports: Reviewed and negative PD PAST MEDICAL HISTORY - Present Medications Home Medications: Ambulatory Orders Medication Instructions Recorded Confirmed Pravastatin [Pravachol] 40 mg PO DAILY 12/13/15 04/24/21 diltiaZEM CD [Cardizem Cd] 240 mg PO DAILY 12/13/15 04/24/21 metFORMIN [Glucophage] 500 mg PO DAILY 12/13/15 04/24/21 LORazepam [Lorazepam] 2 mg PO QPM 09/26/19 04/24/21 Docusate Sodium 100Mg Capsule 100 mg PO BID 04/24/21 04/24/21 [Colace 100Mg Capsule] Insulin Aspart [NovoLOG] 1 - 5 unit SUBQ 0800,1200,1700,2100 04/28/21 Insulin Glargine [Lantus Solostar] 5 unit SUBQ QDBREAKFAST 04/28/21 - Allergies Allergies/Adverse Reactions: Allergies Allergy/AdvReac Type Severity Reaction Status Date / Time acetaminophen [From Tylenol] Allergy Itching Verified 04/29/22 18:01 erythromycin base Allergy Anaphylaxis Verified 04/29/22 18:01 oxycodone Allergy Itching Verified 04/29/22 18:01 ibuprofen [From Motrin] AdvReac Mild Itching Verified 04/29/22 18:01 NSAIDS (Non-Steroidal AdvReac Itching Verified 04/29/22 18:01 Anti-Inflamma PD ED PE NORMAL - Vitals Vital signs reviewed: Yes - General General: Alert and oriented X 3 (v mild confusion) - HEENT HEENT: PERRL, EOMI - Neck Neck: Supple, no meningeal sign, No bony TTP, C-Spine cleared by NEXUS criteria - Cardiac Cardiac: RRR, No murmur - Respiratory Respiratory: No respiratory distress, Clear bilaterally - Abdomen Abdomen: Normal bowel sounds, Soft, Non tender - Back Back: No CVA TTP, No spinal TTP - Derm Derm: Normal color, Warm and dry - Extremities Extremities: No edema, No calf tenderness / cord, Other (She has a tender swollen left wrist, she does not recall an injury specifically but notes that there may have been a fall or an injury.) - Neuro Neuro: Alert and oriented X 3, Normal speech Results - Vitals Vitals: Vital Signs - 24 hr 04/29/22 04/29/22 04/29/22 17:57 18:48 20:22 Temperature 36.3 C L Heart Rate 96 93 96 Respiratory 18 27 H 27 H Rate Blood Pressure 131/71 H 133/72 H 145/62 H O2 Saturation 94 96 95 Oxygen O2 Source Room air - EKG (time done) 1808 Rate: Rate (enter#) (94) Rhythm: NSR [place]: LAD Intervals: Prolonged QT Ischemia: Q waves. No: ST elevation c/w ischemia, ST depression - Labs Labs: Laboratory Tests 04/29/22 04/29/22 04/29/22 18:25 18:25 18:25 WBC 12.0 H RBC 3.84 L Hgb 11.7 L Hct 34.3 L MCV 89.3 MCH 30.5 MCHC 34.1 RDW 12.1 Plt Count 319 MPV 10.4 Neut # (Auto) 9.0 H Lymph # (Auto) 1.6 [place] # (Auto) 1.2 H Eos # (Auto) 0.1 Baso # (Auto) 0.1 Absolute Nucleated RBC 0.00 Nucleated RBC % 0.0 Sodium 134 L Potassium 2.9 L Chloride 90 L Carbon Dioxide 32 Anion Gap 12.0 BUN 18 Creatinine 0.6 Estimated GFR (MDRD) 96 Glucose 182 H Calcium 9.3 Magnesium 1.8 Total Bilirubin 0.9 AST 12 ALT 13 Alkaline Phosphatase 68 Troponin I High Sens 9.8 Total Protein 6.9 Albumin 3.0 L Globulin 3.9 Albumin/Globulin Ratio 0.8 L - Rads (name of study) CT abd Radiology: EMP read contemporaneously PD MEDICAL DECISION MAKING - ED course ED course: 81-year-old woman presents with longstanding vomiting and now acute chest pain. She had an outpatient ultrasound done with reportedly normal findings. Today her work-up showed a chronic leukocytosis, it is always in the range of 11 or 12 and this is standard for her as well as mild anemia and mildly low sodium. Potassium was low and repleted orally. CT of the abdomen pelvis demonstrating liver mass needing further work-up. This was discussed by phone with a nurse practitioner at [facility], [facility] who will order further testing. We di scussed the possibility that her vomiting may be related to diabetic gastroparesis and will trial Reglan. Patient and supportive [id number] at bedside comfortable with discharge. No vomiting here. Departure - Departure Disposition: 01 Home, Self Care Clinical Impression: Liver mass Vomiting Qualifiers: Vomiting type: unspecified Nausea presence: with nausea Qualified Code(s): R11.2 - Nausea with vomiting, unspecified Chest pain Qualifiers: Chest pain type: unspecified Qualified Code(s): R07.9 - Chest pain, unspecified Condition: Good Record reviewed to determine appropriate education?: Yes Instructions: ED Nausea Vomiting Comments: As discussed, you were seen tonight for longstanding but slowly worsening vomiting and then more acutely chest pain. The work-up of the chest pain does not show anything concerning. The CAT scan of your belly does show a mass along your liver, I have spoken with nurse practitioner Harsh and she understands that a liver protocol MRI will need to be done in follow-up. In the meantime we have repleted your potassium and she is going to order Reglan for you going forward because there is a possibility that your vomiting may be related to diabetic gastroparesis. Return for new or worsening symptoms.
[2022-04-29 18:33] LABS: BASOPHILS # (AUTO) 0.1 10^3/uL (0.0-0.1); BASOPHILS % (AUTO) 0.4 %; EOSINOPHILS # (AUTO) 0.1 10^3/uL (0.0-0.7); EOSINOPHILS % (AUTO) 0.5 %; HCT - HEMATOCRIT 34.3 % (37.0-47.0); HGB - HEMOGLOBIN 11.7 g/dL (12.0-16.0); LYMPHOCYTES # (AUTO) 1.6 10^3/uL (1.5-3.5); LYMPHOCYTES % (AUTO) 13.7 %; MEAN CORPUSCULAR HEMOGLOBIN 30.5 pg (27.0-31.0); MEAN CORPUSCULAR HGB CONC 34.1 g/dL (32.0-36.0); MEAN CORPUSCULAR VOLUME 89.3 fL (81.0-99.0); MEAN PLATELET VOLUME 10.4 fL (7.9-10.8); MONOCYTES # (AUTO) 1.2 10^3/uL (0.0-1.0); MONOCYTES % (AUTO) 9.8 %; NEUTROPHILS % (AUTO) 75.2 %; PLT - PLATELET COUNT 319 10^3/uL (130-450); RED BLOOD COUNT 3.84 10^6/uL (4.20-5.40); RED CELL DISTRIBUTION WIDTH 12.1 % (12.0-15.0)
[2022-04-29 18:45] LABS: ALBUMIN/GLOBULIN RATIO 0.8 (1.0-2.2); BILIRUBIN,TOTAL 0.9 mg/dL (0.2-1.0); CALCIUM 9.3 mg/dL (8.5-10.3); CREATININE 0.6 mg/dL (0.4-1.0); MAGNESIUM 1.8 mg/dL (1.7-2.8); POTASSIUM 2.9 mmol/L (3.5-5.0); TOTAL PROTEIN 6.9 g/dL (6.7-8.2)
--- NOTE | 2022-04-29 18:45 | XRAY Report ---
PROCEDURE: Chest 1 View X-Ray INDICATIONS: chest pain TECHNIQUE: One view of the chest was acquired. COMPARISON: 04/03/2021 FINDINGS: Surgical changes and devices: None. Lungs and pleura: No pneumothorax. Small left pleural effusion. Lungs are otherwise clear. Mediastinum: Mediastinal contours appear normal. Heart size is normal. Bones and chest wall: No suspicious bony lesions. Overlying soft tissues appear unremarkable. IMPRESSION: Small left pleural effusion. Otherwise, no focal airspace disease. No evidence for acute cardiopulmon atif abnormalities. Reviewed by: Isaias Gilman MD on 04/29/2022 6:44 PM PDT Approved by: Isaias Gilman MD on 04/29/2022 6:44 PM PDT Station ID: [id number]
[2022-04-29] MEDS ORDERED: iohexoL-300 100 ML VIAL ONE (19:48)
[2022-04-29] MEDS ORDERED: iohexoL-300 100 ML VIAL IVP ONE (20:09)
--- NOTE | 2022-04-29 20:12 | XRAY Report ---
PROCEDURE: Wrist 4 View LT INDICATIONS: left wrist TECHNIQUE: 4 views of the wrist were acquired. COMPARISON: None FINDINGS: Bones: Diffuse osteopenia. No definite fracture. Alignment appears anatomic. Moderate degenerative ch anges of the triscaphe joint and first carpometacarpal joint. Moderate degenerative changes of the le ft thumb metacarpophalangeal and interphalangeal joints. No suspicious bony lesions. Scaphoid view: Scaphoid appears intact. Scapholunate interval is within normal limits. Soft tissues: No suspicious soft tissue calcifications. IMPRESSION: Right wrist without acute fracture or dislocation. Diffuse osteopenia. Moderate degenerative changes of the triscaphe joint and first carpometacarpal joint. If there is persistent clinical concern for a radiographically occult fracture, recommend immobilizat ion and repeat imaging in 10 to 14 days. Reviewed by: Isaias Gilman MD on 04/29/2022 8:11 PM PDT Approved by: Isaias Gilman MD on 04/29/2022 8:11 PM PDT Station ID: [id number]
--- NOTE | 2022-04-29 20:52 | CT Report ---
PROCEDURE: Abdomen/Pelvis W INDICATIONS: vomiting CONTRAST: IV CONTRAST: Isovue 300 ml: 100 PO CONTRAST: *NO PO CONTRAST TECHNIQUE: After the administration of intravenous contrast, 5 mm thick sections acquired from the diaphragms to the symphysis. 5 mm thick coronal and sagittal reformats were acquired. For radiation dose reducti on, the following was used: automated exposure control, adjustment of mA and/or kV according to thom ent size. COMPARISON: CT abdomen pelvis 04/24/2021, 04/03/2021. FINDINGS: Image quality: Excellent. Lung bases:There is mild atelectasis and scarring in the lung bases. Heart: Heart is normal in size. There is a small hiatal hernia. ABDOMEN: Liver:There is a small perihepatic mass lesion along the posterior inferior aspect of the right hepa tic lobe measuring up to 3.2 x 1.5 cm on series 3 image 22. Gallbladder:Surgically absent. Biliary ducts: No biliary ductal dilatation. Pancreas: Unremarkable. Spleen: Normal in size. There is a small hypodense focus within the spleen measuring up to 0.7 cm wh ich is too small to characterize. This appears slightly increased in size compared to the 04/03/2021 s tudy but this may be due to differences in phase of enhancement. Adrenal Glands: No adrenal nodules. Kidneys and Ureters: No hydronephrosis. There is a left renal cyst. Stomach and Bowel: Stomach, small bowel loops, and colon are normal in caliber and wall thickness. N o pericecal inflammatory changes to suggest appendicitis. There is colonic diverticulosis without acu te diverticulitis. Peritoneum: No abnormal intraperitoneal fluid. No free air. Ventral Wall: No hernia. Abdominal Nodes: No retroperitoneal or mesenteric adenopathy by size criteria. Vessels: Aorta and inferior vena cava are normal in size. PELVIS: Pelvic Organs: Unremarkable. Bladder: Unremarkable. Pelvic Nodes: No enlarged lymph nodes. Miscellaneous: No inguinal hernias are seen. Bones: There are mild superior end plate compression deformities of the L1 and L2 vertebral bodies w hich appears unchanged from prior study. Visualized osseous structures demonstrate no suspicious foca l lesions. IMPRESSION: 1. No definite acute intra-abdominal abnormality. Specifically, no evidence of bowel obstruction. 2. Mass lesion along the posterior inferior aspect of the liver. Differential includes a neoplasm patricia lina sequelae of a prior hematoma. Recommend further evaluation with a liver protocol MRI or CT when c linically feasible. 3. Small nonspecific hypodense focus within the spleen. Statistically, the finding likely represents a benign finding. Recommend attention on follow-up studies. Reviewed by: Severino Bauer MD on 04/29/2022 8:50 PM PDT Approved by: Severino Bauer MD on 04/29/2022 8:50 PM PDT Station ID: [id number]
[2022-04-29] MEDS ORDERED: POTASSIUM CHLORIDE 20 MEQ TABLET PO STA (20:54)
[2022-04-29] MEDS ORDERED: METOCLOPRAMIDE 10 MG TABLET PO STA (21:04)
[2022-04-29 21:21] VITALS: BP 134/79
== END 2022-04-29 21:22 | disposition home or self-care (01) ==
LOC: EDUNIT# → ED 17:52
DX: R16.0 Hepatomegaly, not elsewhere classified (principal); R11.2 Nausea with vomiting, unspecified; R07.9 Chest pain, unspecified
CPT/HCPCS: 36415; 71045; 73110; 74177; 80053; 83735; 84484; 85025; 93005; 99284; A9270; Q9967

== ENCOUNTER 2022-06-07 11:57 | Outpatient (CLI) | payer MEDICARE, OTHER | END 2022-06-07 11:58 | disposition home or self-care (01) | LOC: LAB.R 11:57 | PROVIDERS: ATTEND Internal Medicine | DX: R97.0 Elevated carcinoembryonic antigen [CEA] (principal) | CPT/HCPCS: 86304 ==

== ENCOUNTER 2022-07-01 12:06 | Outpatient (CLI) | payer MEDICARE, OTHER ==
[2022-07-01 12:32] LABS: PREALBUMIN 22 mg/dL (18-45)
[2022-07-01 12:33] LABS: CRP - C-REACTIVE PROTEIN < 1.0 mg/dL (0-1.0)
== END 2022-07-01 12:07 | disposition home or self-care (01) ==
LOC: LAB.R 12:06
PROVIDERS: ATTEND Internal Medicine
DX: E46 Unspecified protein-calorie malnutrition (principal); E87.21 Acute metabolic acidosis; E87.6 Hypokalemia; E83.42 Hypomagnesemia
CPT/HCPCS: 84134; 86140

== ENCOUNTER 2022-07-14 12:45 | Outpatient (CLI) | payer MEDICARE, OTHER ==
[2022-07-14 19:00] LABS: B. PARAPERTUSSIS- RESP PCR PAN NOT DETECTED; B. PERTUSSIS- RESP PCR PANEL NOT DETECTED; C. PNEUMONIAE- RESP PCR PANEL NOT DETECTED; CORONAVIRUS 229E-RESP PCR NOT DETECTED; CORONAVIRUS HKU1-RESP PCR NOT DETECTED; CORONAVIRUS NL63-RESP PCR NOT DETECTED; CORONAVIRUS OC43-RESP PCR NOT DETECTED; HUMAN METAPNEUMOVIRUS NOT DETECTED; INFLUENZA A- RESP PCR PANEL NOT DETECTED; INFLUENZA B - RESP PCR PANEL NOT DETECTED; M. PNEUMONIAE- RESP PCR PANEL NOT DETECTED; PARAINFLUENZA VIRUS 1 NOT DETECTED; PARAINFLUENZA VIRUS 2 NOT DETECTED; PARAINFLUENZA VIRUS 3 NOT DETECTED; PARAINFLUENZA VIRUS 4 NOT DETECTED; RHINOVIRUS/ENTEROVIRUS NOT DETECTED; RSV- RESP PCR PANEL DETECTED; SARS-CoV-2 -RESP PCR PANEL NOT DETECTED
== END 2022-07-14 12:46 | disposition home or self-care (01) ==
LOC: LAB.R 12:45
PROVIDERS: ATTEND Internal Medicine
DX: Z13.83 Encounter for screening for respiratory disorder NEC (principal)
CPT/HCPCS: 87633

== ENCOUNTER 2022-07-16 08:00 | Outpatient (CLI) | payer MEDICARE, OTHER ==
[2022-07-16 20:43] LABS: ALBUMIN 2.6 g/dL (3.2-5.5); ALBUMIN/GLOBULIN RATIO 0.6 (1.0-2.2); BILIRUBIN,TOTAL 7.2 mg/dL (0.2-1.0); CALCIUM 8.8 mg/dL (8.5-10.3); CREATININE 0.5 mg/dL (0.4-1.0); POTASSIUM 3.2 mmol/L (3.5-5.0); TOTAL PROTEIN 6.7 g/dL (6.7-8.2)
== END 2022-07-16 23:59 | disposition home or self-care (01) ==
LOC: LAB.R 08:00
PROVIDERS: ATTEND Internal Medicine
DX: E87.6 Hypokalemia (principal)
CPT/HCPCS: 80053

== ENCOUNTER 2022-07-22 15:56 | Outpatient (CLI) | payer MEDICARE, OTHER ==
[2022-07-22 16:47] LABS: THYROID STIMULATING HORMONE 1.28 uIU/mL (0.34-5.60)
== END 2022-07-22 15:57 | disposition home or self-care (01) ==
LOC: LAB.R 15:56
PROVIDERS: ATTEND Internal Medicine
DX: E03.9 Hypothyroidism, unspecified (principal)
CPT/HCPCS: 84443

== ENCOUNTER 2022-07-23 14:56 | Emergency (ER) | payer MEDICARE, OTHER ==
--- NOTE | 2022-07-23 15:24 | ED Physician Documentation ---
PD HPI SKIN - Stated complaint Stated Complaint: ITCHY ALL OVER - Chief complaint Chief Complaint: General - History obtained from History obtained from: Patient, Family (Talked with her son by phone) - History of Present Illness Timing - onset: How many days ago (several days of progressive general itchiness per patient, and gradual jaundice noted by staff over the past 2 weeks. Labs done from [facility] 07/16 showed bilirubin 7 at that time. I talked with her son, and he was not aware of those lab results. 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 Had been surgically debulked. Had J- tube placed and was using it regular after surgery. Son says pt mainly has PO intake now. Pt states nauseated and poor PO intake for past few weeks. To see GI at for this). No: Fever, Myalgias Similar symptoms before: Has not had sx before Recently seen: Emergency Dept (seen 2 months ago in ER for nausea and vomiting. Had normal labs at that time, and CT showing some gastric mass. Son states the pt had abd MRI at [facility] as follow up of that.) Review of Systems Constitutional: denies: Fever, Chills Nose: denies: Rhinorrhea / runny nose, Congestion Throat: denies: Sore throat Respiratory: denies: Cough GI: reports: Nausea. denies: Abdominal Pain, Vomiting, Diarrhea Skin: reports: Other (yellow coloring progressive.) Neurologic: reports: Generalized weakness. denies: Focal weakness, Near syncope PD PAST MEDICAL HISTORY - Past Medical History Cardiovascular: Hypertension, High cholesterol Respiratory: Sleep apnea Neuro: Dementia Endocrine/Autoimmune: Type 2 diabetes GI: None PLANT PACKER: Breast cancer : Incontinence Psych: Other Musculoskeletal: Chronic back pain Derm: None - Past Surgical History Past Surgical History: Yes General: Cholecystectomy Ortho: Other /PLANT PACKER: Mastectomy - Present Medications Home Medications: Ambulatory Orders Medication Instructions Recorded Confirmed Pravastatin [Pravachol] 40 mg PO DAILY 12/13/15 04/24/21 diltiaZEM CD [Cardizem Cd] 240 mg PO DAILY 12/13/15 04/24/21 metFORMIN [Glucophage] 500 mg PO DAILY 12/13/15 04/24/21 LORazepam [Lorazepam] 2 mg PO QPM 09/26/19 04/24/21 Docusate Sodium 100Mg Capsule 100 mg PO BID 04/24/21 04/24/21 [Colace 100Mg Capsule] Insulin Aspart [NovoLOG] 1 - 5 unit SUBQ 0800,1200,1700,2100 04/28/21 Insulin Glargine [Lantus Solostar] 5 unit SUBQ QDBREAKFAST 04/28/21 Doxepin [SINEquan] 10 mg PO TID PRN #30 cap 07/23/22 - Allergies Allergies/Adverse Reactions: Allergies Allergy/AdvReac Type Severity Reaction Status Date / Time acetaminophen [From Tylenol] Allergy Itching Verified 07/23/22 15:16 diphenhydramine Allergy Unknown Verified 07/23/22 16:28 erythromycin base Allergy Anaphylaxis Verified 07/23/22 15:16 oxycodone Allergy Itching Verified 07/23/22 15:16 ibuprofen [From Motrin] AdvReac Mild Itching Verified 07/23/22 15:16 NSAIDS (Non-Steroidal AdvReac Itching Verified 07/23/22 15:16 Anti-Inflamma - Social History Does the pt smoke?: No Smoking Status: Never smoker Does the pt drink ETOH?: No Does the pt have substance abuse?: No - Immunizations Immunizations are current?: Yes - POLST Patient has POLST: No POLST Status: Full Code PD ED PE NORMAL - Vitals Vital signs reviewed: Yes - General General: Alert and oriented X 3, No acute distress, Well developed/nourished, Other (obvious jaundice) - HEENT HEENT: Pharynx benign - Neck Neck: Supple, no meningeal sign, No adenopathy - Cardiac Cardiac: RRR, No murmur - Respiratory Respiratory: Clear bilaterally - Abdomen Abdomen: Normal bowel sounds, Soft, Non distended, No organomegaly, Other (J- Tube coming out from left mid abdomen. ) - Rectal Rectal: Deferred - Back Back: No CVA TTP - Derm Derm: No: Normal color (jauncide) - Extremities Extremities: No edema, No calf tenderness / cord - Neuro Neuro: Alert and oriented X 3 Results - Vitals Vitals: Vital Signs - 24 hr 07/23/22 07/23/22 07/23/22 15:11 17:28 19:42 Temperature 36.6 C Heart Rate 105 H 89 85 Respiratory 20 20 18 Rate Blood Pressure 131/70 H 156/101 H 145/74 H O2 Saturation 96 98 97 Oxygen O2 Source Room air - Labs Labs: Laboratory Tests 07/23/22 07/23/22 07/23/22 16:10 16:10 17:21 WBC 8.5 RBC 3.96 L Hgb 11.3 L Hct 35.3 L MCV 89.1 MCH 28.5 MCHC 32.0 RDW 18.0 H Plt Count 336 MPV 11.6 H Neut # (Auto) 6.4 Lymph # (Auto) 1.4 L O[place] # (Auto) 0.6 Eos # (Auto) 0.1 Baso # (Auto) 0.0 Absolute Nucleated RBC 0.00 Nucleated RBC % 0.0 Sodium 133 L Potassium 3.6 Chloride 99 L Carbon Dioxide 24 Anion Gap 10.0 BUN 11 Creatinine 0.4 Estimated GFR (MDRD) 154 Glucose 292 H Calcium 9.2 Magnesium 1.7 Total Bilirubin 13.7 H Direct Bilirubin 8.8 H AST 35 ALT 36 Alkaline Phosphatase 353 H Total Protein 7.1 Albumin 2.6 L Globulin 4.5 H Urine Color DARK YELLOW Urine Clarity HAZY Urine pH 6.0 Ur Specific Center 1.025 Urine Protein TRACE Urine Glucose (UA) 250 H Urine Ketones NEGATIVE Urine Occult Blood NEGATIVE Urine Nitrite NEGATIVE Urine Bilirubin LARGE H Urine Urobilinogen 1 (NORMAL) Ur Leukocyte Esterase NEGATIVE Urine RBC 0-5 Urine WBC 0-3 Ur Squamous Epith Cells MANY Squamous H Urine Bacteria Few Urine Mucus Few Strands Ur Microscopic Review INDICATED Urine Culture Comments NOT INDICATED - Rads (name of study) abd/pelvic CT Radiology: Prelim report reviewed, See rad report (done without contrast due to difficulty with IV start. ) PD Medical Decision Making - ED course Complexity details: reviewed results, considered differential, d/w patient, d/w family Departure - Departure Disposition: 01 Home, Self Care Clinical Impression: Obstructive jaundice Condition: Stable Record reviewed to determine appropriate education?: Yes Prescriptions: Doxepin [SINEquan] 10 mg PO TID PRN #30 cap PRN Reason: Itching Comments: You were seen tonight for obstructive jaundice related to a mass, the same mass that had been blocking your intestine and required the feeding tube now has gotten bigger. You will need to follow through with the urgent GI referral placed for you through [facility] for this complicated issue. Return for new or worsening symptoms. For your records your bilirubin was normal in April, on July 16 it was 7.2, today it is 13.7. Your alkaline phosphatase is elevated at 353.
--- OUTSIDE RECORDS SUMMARY | 2022-07-23 15:35 | EXTERNAL MEDICAL SUMMARY RPT | Continuity of Care Document ---
:1940 Author Organization [facility] Address [address] [place] [address] Phone Allergies No information. Encounters No information. Functional Status No information. Immunizations No information. Medications No information. Problems date description facility 2022-05-04 10:27 Abnormal findings on diagnostic imaging of [facility] liver and biliary Procedures No information. Results/Labs test date author facility value unit interpret ation Result panel 1 (unknown) (no (unknown) (unknown) (no value) (units (unk nown) date) unknown) (unknown) (no (unknown) (unknown) [id number] (units (unkn own) date) unknown) (unknown) (no (unknown) (unknown) 1. There is a (units ( unknown) date) chronic unknown) inflammatory appearing collection along the posterior (unknown) (no (unknown) (unknown) 05/04/22 (units (unkno wn) date) unknown) (unknown) (no (unknown) (unknown) [address] [place] [address] (units (unknown) date) unknown) (unknown) (no (unknown) (unknown) 2. Adjacent (units (un known) date) arterial unknown) hyperenhancement in the liver may be due to ongoing (unknown) (no (unknown) (unknown) 2D FLASH (units (unkno wn) date) unknown) (unknown) (no (unknown) (unknown) 3. Post (units (unkno wn) date) cholecystectomy. unknown) (unknown) (no (unknown) (unknown) 4. Low volume (units ( unknown) date) status. unknown) (unknown) (no (unknown) (unknown) Accession Number: (units (unknown) date) [id number] unknown) (unknown) (no (unknown) (unknown) Age/Sex: 81 / F (units (unknown) date) Date of Service: unknown) (unknown) (no (unknown) (unknown) Along the (units (unkn own) date) posterior and unknown) posterolateral aspect of segment six, there is a (unknown) (no (unknown) (unknown) [place], [place] (units ( unknown) date) [id number] unknown) (unknown) (no (unknown) (unknown) Approved by: (units (u nknown) date) Kathy Winston M.D. unknown) on 05/04/2022 at 14:52 (unknown) (no (unknown) (unknown) Bones and soft (units (unknown) date) tissues: No ventral unknown) hernias. Bone marrow is normal in overall (unknown) (no (unknown) (unknown) Bowel and (units (unkn own) date) peritoneum: The unknown) stomach is filled with ingested material and (unknown) (no (unknown) (unknown) COMPARISON: [place] (units (unknown) date) [facility], CT, CT unknown) ABDOMEN PELVIS W CON, 05/06/2021, 10:02. (unknown) (no (unknown) (unknown) Coronal HASTE, (units (unknown) date) axial 2D FLASH in- unknown) and [id number]; axial breath-hold T2 FSE. (unknown) (no (unknown) (unknown) Correlation made (units (unknown) date) to an outside CT of unknown) the abdomen pelvis dated 04/29/22. (unknown) (no (unknown) (unknown) : 1940 (units (unknown) date) Acct:[id number] unknown) (unknown) (no (unknown) (unknown) Dictated by: (units (u nknown) date) Kathy Winston M.D. unknown) on 05/04/2022 at 14:30 (unknown) (no (unknown) (unknown) Diffusion-weighted (units (unknown) date) imaging unknown) demonstrates restricted diffusion. (unknown) (no (unknown) (unknown) Dynamic (units (unkno wn) date) unknown) (unknown) (no (unknown) (unknown) FINDINGS: (units (unkn own) date) unknown) (unknown) (no (unknown) (unknown) IMPRESSION: (units (un known) date) unknown) (unknown) (no (unknown) (unknown) INDICATIONS: LIVER (units (unknown) date) MASS unknown) (unknown) (no (unknown) (unknown) Image quality: (units (unknown) date) Excellent. unknown) (unknown) (no (unknown) (unknown) [facility] (units (unknown) date) unknown) (unknown) (no (unknown) (unknown) Loc: MRI (units (unkno wn) date) unknown) (unknown) (no (unknown) (unknown) Lung bases: No (units (unknown) date) basal effusions. No unknown) hiatal hernia. The heart size is normal. (unknown) (no (unknown) (unknown) Magnetic Resonance (units (unknown) date) Report unknown) (unknown) (no (unknown) (unknown) Nodes and vessels: (units (unknown) date) No retroperitoneal unknown) or significant mesenteric adenopathy (unknown) (no (unknown) (unknown) Ordering Provider: (units (unknown) date) Rachel House unknown) BRYCE (unknown) (no (unknown) (unknown) PROCEDURE: MR (units ( unknown) date) ABDOMEN WO/W CON unknown) (unknown) (no (unknown) (unknown) Patient: (units (unkno wn) date) Richa Mendez unknown) MR#: M (unknown) (no (unknown) (unknown) Procedure: MR (units ( unknown) date) abdomen wo/w con unknown) (unknown) (no (unknown) (unknown) Signed (units (unkno wn) date) unknown) (unknown) (no (unknown) (unknown) Solid organs: The (units (unknown) date) liver is normal in unknown) size and signal without significant (unknown) (no (unknown) (unknown) TECHNIQUE: (units (unk nown) date) unknown) (unknown) (no (unknown) (unknown) The gallbladder is (units (unknown) date) surgically absent. unknown) The biliary tree is nondilated. The (unknown) (no (unknown) (unknown) The spleen is (units ( unknown) date) normal size with a unknown) subcentimeter T2 hyperintensity present (unknown) (no (unknown) (unknown) There is mild (units ( unknown) date) thoracolumbar unknown) scoliosis and a few vertebral body hemangiomas in (unknown) (no (unknown) (unknown) abnormality and (units (unknown) date) persistent similar unknown) enhancement of the exophytic portion of the (unknown) (no (unknown) (unknown) about 4.2 cm in (units (unknown) date) length, 2.1 cm in unknown) height, and 1.6 cm in width. No intrinsic (unknown) (no (unknown) (unknown) adrenal glands are (units (unknown) date) normal. There are unknown) thin-walled T2 hyperintense cysts in each (unknown) (no (unknown) (unknown) and visible large (units (unknown) date) bowel loops are unknown) normal. No free fluid in the peritoneum or (unknown) (no (unknown) (unknown) aorta is normal (units (unknown) date) caliber. The IVC is unknown) decompressed indicating dehydration. (unknown) (no (unknown) (unknown) arterial phase. (units (unknown) date) Delayed phase unknown) demonstrates resolution of hepatic parenchymal (unknown) (no (unknown) (unknown) axial VIBE during (units (unknown) date) the administration unknown) of contrast; post-contrast coronal VIBE or (unknown) (no (unknown) (unknown) containing (units (unk nown) date) thick-walled fluid unknown) collection along the posterior margin of the (unknown) (no (unknown) (unknown) diffusion (units (unkn own) date) unknown) (unknown) (no (unknown) (unknown) distended. Small (units (unknown) date) unknown) (unknown) (no (unknown) (unknown) enhancement (units (un known) date) unknown) (unknown) (no (unknown) (unknown) exophytic, (units (unk nown) date) lenticular mass unknown) with a partial rim of T1 and T2 hypointensity. This (unknown) (no (unknown) (unknown) fluid (units (unkno wn) date) unknown) (unknown) (no (unknown) (unknown) gas (units (unkno wn) date) unknown) (unknown) (no (unknown) (unknown) hypoenhancement, (units (unknown) date) and adjacent unknown) arterial hyperenhancement in hepatic parenchyma (unknown) (no (unknown) (unknown) inflammation or (units (unknown) date) unknown) (unknown) (no (unknown) (unknown) kidney. (units (unkno wn) date) unknown) (unknown) (no (unknown) (unknown) liver, similar in (units (unknown) date) extent compared to unknown) CT from one year ago which demonstrated a (unknown) (no (unknown) (unknown) liver, (units (unkno wn) date) unknown) (unknown) (no (unknown) (unknown) margin of the (units ( unknown) date) unknown) (unknown) (no (unknown) (unknown) mass. (units (unkno wn) date) unknown) (unknown) (no (unknown) (unknown) measures (units (unkno wn) date) unknown) (unknown) (no (unknown) (unknown) on the (units (unkno wn) date) unknown) (unknown) (no (unknown) (unknown) organized (units (unkn own) date) unknown) (unknown) (no (unknown) (unknown) pancreas and (units (u nknown) date) unknown) (unknown) (no (unknown) (unknown) partially (units (unkn own) date) unknown) (unknown) (no (unknown) (unknown) previously. (units (un known) date) unknown) (unknown) (no (unknown) (unknown) reactive (units (unkno wn) date) microvascular unknown) changes. (unknown) (no (unknown) (unknown) residual from (units ( unknown) date) prior surgical unknown) intervention. This is presumably residual, (unknown) (no (unknown) (unknown) retroperitoneal (units (unknown) date) fascial unknown) (unknown) (no (unknown) (unknown) retroperitoneum. (units (unknown) date) unknown) (unknown) (no (unknown) (unknown) sequelae, (units (unkn own) date) hematoma, biloma, unknown) or phlegmon. Suspicion for malignancy is low. (unknown) (no (unknown) (unknown) signal. There is (units (unknown) date) slight thickening unknown) in tethering of the overlying (unknown) (no (unknown) (unknown) signal. (units (unkno wn) date) unknown) (unknown) (no (unknown) (unknown) steatosis. (units (unk nown) date) unknown) (unknown) (no (unknown) (unknown) surface. (units (unkno wn) date) Postcontrast, there unknown) is uniform peripheral enhancement, intrinsic (unknown) (no (unknown) (unknown) thoracic (units (unkno wn) date) unknown) (unknown) (no (unknown) (unknown) vertebra. (units (unkn own) date) unknown) (unknown) (no (unknown) (unknown) visible. The (units (u nknown) date) unknown) (unknown) (no (unknown) (unknown) weighted imaging (units (unknown) date) and ADC may be unknown) performed. (unknown) (no (unknown) (unknown) with fat (units (unkno wn) date) saturation from the unknown) hepatic dome to the iliac crests. Optional Social History No information. Vital Signs No information.
[2022-07-23] MEDS ORDERED: SODIUM CHLORIDE 0.9% 1,000 ML IV STA (15:54)
[2022-07-23] MEDS ORDERED: diphenhydrAMINE INJ 50 MG/ML VIAL IVP STA (15:58)
[2022-07-23] MEDS ORDERED: iohexoL-300 100 ML VIAL ONE ×2 (16:12→17:43)
[2022-07-23 16:19] LABS: BASOPHILS % (AUTO) 0.4 %; EOSINOPHILS # (AUTO) 0.1 10^3/uL (0.0-0.7); EOSINOPHILS % (AUTO) 0.9 %; HCT - HEMATOCRIT 35.3 % (37.0-47.0); HGB - HEMOGLOBIN 11.3 g/dL (12.0-16.0); LYMPHOCYTES # (AUTO) 1.4 10^3/uL (1.5-3.5); LYMPHOCYTES % (AUTO) 16.3 %; MEAN CORPUSCULAR HEMOGLOBIN 28.5 pg (27.0-31.0); MEAN CORPUSCULAR VOLUME 89.1 fL (81.0-99.0); MEAN PLATELET VOLUME 11.6 fL (7.9-10.8); MONOCYTES # (AUTO) 0.6 10^3/uL (0.0-1.0); MONOCYTES % (AUTO) 7.5 %; NEUTROPHILS # (AUTO) 6.4 10^3/uL (1.5-6.6); NEUTROPHILS % (AUTO) 74.8 %; PLT - PLATELET COUNT 336 10^3/uL (130-450); RED BLOOD COUNT 3.96 10^6/uL (4.20-5.40); WHITE BLOOD COUNT 8.5 x10^3/uL (4.8-10.8)
[2022-07-23 16:32] LABS: ALBUMIN 2.6 g/dL (3.2-5.5); BILIRUBIN,DIRECT 8.8 mg/dL (0.1-0.5); BILIRUBIN,TOTAL 13.7 mg/dL (0.2-1.0); CALCIUM 9.2 mg/dL (8.5-10.3); CREATININE 0.4 mg/dL (0.4-1.0); MAGNESIUM 1.7 mg/dL (1.7-2.8); POTASSIUM 3.6 mmol/L (3.5-5.0); TOTAL PROTEIN 7.1 g/dL (6.7-8.2)
[2022-07-23] MEDS ORDERED: PROMETHAZINE INJ 25 MG in SODIUM CHLORIDE 0.9% 50 ML IV STA (16:43)
--- NOTE | 2022-07-23 18:19 | ED Physician Documentation ---
ED Addendum - Addendum Addendum: 07/23/22 18:19 She was difficult for IV access, she had return from CT with no working IV. The nurse asked me to place an IV. I initially attempted in the right antecubital fossa, but subsequently was able to place a 20-gauge IV in the left antecubital fossa using real-time ultrasound guidance after ChloraPrep.
[2022-07-23] MEDS ORDERED: DOXEPIN 25 MG CAPSULE PO STA (18:25)
[2022-07-23 18:56] LABS: GLUCOSE, URINE (UA) 250 mg/dL (NEGATIVE); KETONES,URINE (UA) NEGATIVE (NEGATIVE); LEUKOCYTE ESTERASE, URINE NEGATIVE (NEGATIVE); NITRITE,URINE NEGATIVE (NEGATIVE); OCCULT BLOOD,URINE NEGATIVE (NEGATIVE); PROTEIN,URINE TRACE mg/dL (NEGATIVE); UROBILINOGEN,URINE 1 (NORMAL) E.U./dL (NORMAL)
[2022-07-23 19:01] LABS: CLARITY,URINE HAZY (CLEAR)
[2022-07-23 19:04] LABS: BILIRUBIN,URINE LARGE (NEGATIVE); ICTOTEST,URINE POSITIVE
[2022-07-23 19:18] LABS: BACTERIA,URINE Few /HPF (None Seen); MUCUS,URINE Few Strands; RBC,URINE 0-5 /HPF (0-5); SQUAMOUS EPITHELIAL CELL,UR MANY Squamous (<= Few); WBC,URINE 0-3 /HPF (0-5)
[2022-07-23 19:43] VITALS: BP 145/74
--- NOTE | 2022-07-23 20:34 | CT Report ---
PROCEDURE: ABDOMEN/PELVIS WO INDICATIONS: painless jaundic TECHNIQUE: Noncontrast 5 mm thick sections acquired from the diaphragms to the symphysis. 5 mm coronal and sagi ttal reformats were then performed. For radiation dose reduction, the following was used: automated exposure control, adjustment of mA and/or kV according to patient size. COMPARISON: 04/29/2022 FINDINGS: Image quality: Excellent. ABDOMEN: Lung bases: Lung bases are clear. There are 2 right epicardial fat pad lymph nodes, the largest juan uring 1.3 cm. Heart size is normal. Aortic valvular and dense coronary artery calcification. Tiny hi atal hernia. Solid organs: There is prominent diffuse intrahepatic biliary dilatation. The gallbladder is surgica lly absent. There is significant common duct dilatation measuring up to 2.2 cm. Irregular hyperdensit y is present at the ampulla suggesting a soft tissue mass. The pancreas is normal size without signif icant ductal dilatation. The spleen, adrenals, and kidneys are normal. Peritoneum and bowel: The stomach is partially distended. The antrum of the stomach is distended and the wall is thickened. There is abrupt narrowing of the second portion of the duodenum where there i s a soft tissue mass for length of about 2.6 cm. There is a jejunostomy tube distally. Distal small b owel, appendix, and colon are within normal limits. No free fluid or free air. Nodes and vessels: A few periportal and portacaval lymph nodes are present. There are mild strandy c hanges in the right upper quadrant bowel mesentery and a few periduodenal nodes. No bulky retroperito deep or mesenteric adenopathy by size criteria. Aorta and inferior vena cava are normal in caliber. Miscellaneous: No ventral hernias. PELVIS: Genitourinary: Bladder wall thickness is normal. Uterus is absent. Ovaries are not identified. Miscellaneous: No inguinal hernias or adenopathy. Mild pelvic floor prolapse. Bones: No suspicious bony lesions. No vertebral body compression fractures. IMPRESSION: 1. 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 This also is noted to be obstructing to the stomach, likely prompting distal feed ing jejunostomy tube. There is significant biliary dilatation and stent placement is recommended. 2. There are small epigastric lymph nodes and right epicardial lymph nodes. Reviewed by: Kathy Winston MD on 07/23/2022 8:33 PM PST Approved by: Kathy Winston MD on 07/23/2022 8:33 PM PST Station ID: [id number]
[2022-07-23] MEDS ORDERED: DOXEPIN 25 MG CAPSULE PO SCH (21:00)
--- NOTE | 2022-07-23 21:39 | ED Physician Documentation ---
ED Addendum - Addendum Addendum: 07/23/22 21:[address] Tavarez at shift change. 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 With her supportive son at the bedside I discussed options including transfer to a facility capable of urgent GI evaluation versus discharge for an evaluation noting that they already have a pending referral to [facility], and they opted for the latter. This is reasonable since there is no true emergency medical condition but they will need close follow-up. Disposition: Discharged home Condition: Stable Diagnosis: 1. Intestinal mass 2. Obstructive jaundice
[2022-07-23] MEDS ORDERED: iohexoL-300 100 ML VIAL IVP ONE (22:36)
== END 2022-07-23 22:16 | disposition home or self-care (01) ==
LOC: ED 14:56
DX: K83.1 Obstruction of bile duct (principal); I10 Essential (primary) hypertension; E11.9 Type 2 diabetes mellitus without complications; Z79.4 Long term (current) use of insulin
CPT/HCPCS: 36415; 74176; 80048; 80076; 81001; 83735; 85025; 96361; 96365; 99283; 99284; A9270; J7040; Q9967; 81003; 87086